=== PATIENT | female | born 1950 | race Caucasian/White ===

== ENCOUNTER → 2017-12-25 14:50 | Outpatient (CLI) | payer OTHER, SELFPAY ==
[2017-12-25 15:36] LABS: Absolute Lymphocyte Count 2.46 X10^3/ul (0.83-4.51); Absolute Neutrophil Count 3.5 X10^3/uL (2.0-7.7); Basophil# 0.02 X10^3/uL; Basophil% 0.3 % (0-1); Eosinophil# 0.17 X10^3/uL; Eosinophils% 2.5 % (0-5); Hematocrit 39.5 % (37-47); Hemoglobin 12.8 g/dl (12.0-15.0); Lymphocyte # 2.46 X10^3/ul (4.0); Lymphocyte % 36.7 % (19-41); Mean Corp Hgb Conc 32.4 g/gl (32-36); Mean Corpuscular Volume 92.7 fL (81-99); Mean Platelet Vol. 9.5 fl (6.2-12.0); Monocyte# 0.51 X10^3/uL; Monocyte% 7.6 % (0-10); Neutrophil # 3.54 X10^3/uL (2.7-7.7); Neutrophil % 52.8 % (47-70); Platelet Count 198 K/mm3 (150-450); RBC Distribution Width CV 13.1 % (11.6-14.6); RBC Distribution Width SD 44.1 fl (35.1-43.9); Red Blood Count 4.26 M/mm3 (4.2-5.4); White Blood Count 6.7 K/mm3 (4.4-11.0)
[2017-12-25 16:06] LABS: Anion Gap 7 (5-15); BUN 32 mg/dL (7-18); BUN/Creat Ratio 33.4 RATIO (10-20); Calcium,Total 8.9 mg/dL (8.5-10.1); Chloride 105 mmol/L (98-107); Creatinine, Serum 0.96 mg/dL (0.55-1.02); EST Glomerular Filtration Rate 62 mL/min (>60); Est Glom Filt Rate - Afr Amer 75 mL/min (>60); Free T3 2.9 pg/mL (2.18-3.98); Glucose 104 mg/dL (74-106); Potassium 4.2 mmol/L (3.5-5.1); Sodium Level 139 mmol/L (136-145); T4 Free Direct 1.04 ng/dL (0.76-1.46); Thyroid Stim Hormone (TSH) 2.28 uIU/mL (0.358-3.74)
[2017-12-25 16:11] LABS: POSITIVE COUNT NO; POSITIVE DIFFERENTIAL NO; POSITIVE MORPHOLOGY NO
== END ==
PROVIDERS: Family Provider Family Medicine; PCP Family Medicine; Visit Provider Internal Medicine Endocrinology, Diabetes & Metabolism
DX: E03.9 Hypothyroidism, unspecified (principal); E55.9 Vitamin D deficiency, unspecified
CPT/HCPCS: 36415; 80048; 82306; 84439; 84443; 84481; 85025

== ENCOUNTER → 2018-01-04 14:47 | Outpatient (CLI) | payer OTHER, SELFPAY ==
--- NOTE | 2018-01-04 14:48 | ECHOD_ITS ---
Reason For Study: DYSPNEA/SOB Procedure This was a 2D Doppler, Color Flow transthoracic echocardiogram. Exam performed in department. Left Ventricle Normal LV size. The estimated ejection fraction is 55 %. Left ventricular systolic function is normal. No evidence for diastolic dysfunction. No regional wall motion abnormalities noted. Right Ventricle Normal RV size. ICD or pacer leads identified within the right ventricle. Normal systolic function. Atria Normal left atrium. Normal right atrium. Bubble contrast study negative for right to left interatrial shunt. Mitral Valve Normal mitral valve. Mild (1+) eccentric mitral valve insufficiency. Tricuspid Valve Normal tricuspid valve. Mild tricuspid valve insufficiency. Pulmonary artery systolic pressure is 23 mmHg. Aortic Valve Normal aortic valve. Pulmonic Valve Normal pulmonic valve. Great Vessels Normal aortic root. The pulmonary artery is normal size. Normal inferior vena cava. Pericardium/Pleural No pericardial effusion. Medication 22 gauge I.V. with prn adaptor inserted into right arm. Performed a rapid injection of agitated mix of 9 cc saline and 1cc air to assess for atrial septal defect. MMode/2D Measurements & Calculations LVIDd: 3.7 cm IVSd: 0.94 cm Ao root diam: 2.9 cm LVIDs: 2.5 cm LVPWd: 0.98 cm RVDd: 2.9 cm FS: 30.7 % LAV(MOD-bp): 34.3 ml EDV(MOD-sp4): 83.4 ml SV(MOD-sp4): 48.8 ml LAV(MOD-bp) Indexed: 20.2 ml/m2 ESV(MOD-sp4): 34.6 ml LAV(MOD-sp2): 33.4 ml EF(MOD-sp4): 58.5 % LAV(MOD-sp4): 35.4 ml LA A4 area: 14.6 cm2 RA A4 area: 11.1 cm2 Time Measurements MV dec time: 0.22 sec Doppler Measurements & Calculations MV E max isiah: 102.0 cm/sec Lat Peak E' Isiah: 7.8 cm/sec Med Peak E' Isiah: 7.2 cm/sec MV A max isiah: 113.3 cm/sec E/E' lat: 13.0 E/E' med: 14.1 MV E/A: 0.90 Ao V2 max: 123.4 cm/sec LV V1 max: 88.6 cm/sec PA V2 max: 72.1 cm/sec Ao max P.1 mmHg LV V1 max P.1 mmHg TR max isiah: 229.9 cm/sec TR max P.2 mmHg Interpretation Summary Normal LV size. The estimated ejection fraction is 55 %. Left ventricular systolic function is normal. No evidence for diastolic dysfunction. Mild tricuspid valve insufficiency. Pulmonary artery systolic pressure is 23 mmHg. Compared to the previous the LV is improved Ordering Physician: Jace Subramanian Referring Physician: Jace Subramanian Performed By: Dulce Gagnon RDCS
== END ==
PROVIDERS: Family Provider Family Medicine; PCP Family Medicine; Visit Provider Internal Medicine Cardiovascular Disease
DX: I42.8 Other cardiomyopathies (principal); Z95.810 Presence of automatic (implantable) cardiac defibrillator
CPT/HCPCS: 93306; A4216

== ENCOUNTER → 2018-03-14 09:18 | Outpatient (CLI) | payer OTHER, SELFPAY ==
[2018-03-14 11:36] LABS: Hemoglobin A1c 5.6 % (4.2-6.3)
[2018-03-14 11:39] LABS: Thyroid Stim Hormone (TSH) 2.64 uIU/mL (0.358-3.74)
== END ==
PROVIDERS: Family Provider Family Medicine; PCP Family Medicine; Visit Provider Internal Medicine Endocrinology, Diabetes & Metabolism
DX: R73.9 Hyperglycemia, unspecified (principal); M81.0 Age-related osteoporosis without current pathological fracture; E03.9 Hypothyroidism, unspecified
CPT/HCPCS: 36415; 83036; 84443

== ENCOUNTER → 2018-05-20 13:01 | Outpatient (CLI) | payer OTHER, SELFPAY | PROVIDERS: Family Provider Family Medicine; PCP Family Medicine; Visit Provider Anesthesiology Pain Medicine | DX: M96.1 Postlaminectomy syndrome, not elsewhere classified (principal) | CPT/HCPCS: 72072 ==

== ENCOUNTER → 2018-08-13 12:27 | Outpatient (CLI) | payer OTHER, SELFPAY ==
--- NOTE | 2018-08-13 12:43 | BI_ITS ---
MAMMOGRAPHY - BILATERAL SCREENING REASON FOR EXAM: Female, 67 years old. Routine annual screening examination. PERTINENT HISTORY: Non-contributory. TECHNIQUE: Digital bilateral breast jannet (3D mammographic acquisition) in the CC and MLO projections. 2-D mediolateral oblique (MLO) and craniocaudad (CC) views of both breasts were obtained. CAD: Full Field Digital Mammography with Computer Added Detection was performed. COMPARISON: Comparison is made with prior study dated June 08, 2017 and March 13, 2016. FINDINGS: Breast Composition: The breasts are heterogeneously dense, which may obscure small masses. There are no dominant masses or suspicious calcifications. A pacemaker battery pack is once again seen in the left axillary region. There is asymmetry of breast tissue with more breast tissue is seen in the right breast as compared to the left side. This is a normal variant. This is unchanged. No other significant abnormalities are identified. There has been no significant change since the prior study. BI/SCREENING MAMM (CAD), BILAT IMPRESSION: Stable bilateral screening mammogram. Yearly follow-up mammogram recommended. (A) ASSESSMENT CATEGORY: BIRADS Category 2: Benign. A letter regarding these results will be sent to the patient by the facility within 30 days. Approximately 10% of breast cancers are not detected by mammography. A normal mammogram should not delay biopsy of a clinically suspicious abnormality. [id number] Electronically Signed: Ganesh Dolan MD at 15:11 EST Tel [phone], Service support ,
== END ==
PROVIDERS: Family Provider Family Medicine; PCP Family Medicine; Referring Provider Family Medicine; Visit Provider Family Medicine
DX: Z12.31 Encounter for screening mammogram for malignant neoplasm of breast (principal)
CPT/HCPCS: 77063; 77067

== ENCOUNTER → 2018-08-14 16:16 | Outpatient (CLI) | payer OTHER, SELFPAY ==
[2018-08-14 18:44] LABS: Absolute Lymphocyte Count 2.24 X10^3/ul (0.83-4.51); Absolute Neutrophil Count 4.3 X10^3/uL (2.0-7.7); Basophil# 0.02 X10^3/uL; Basophil% 0.3 % (0-1); Eosinophil# 0.19 X10^3/uL; Eosinophils% 2.6 % (0-5); Hematocrit 40.7 % (37-47); Hemoglobin 13.2 g/dl (12.0-15.0); Lymphocyte # 2.24 X10^3/ul (4.0); Lymphocyte % 30.8 % (19-41); Mean Corp Hgb Conc 32.4 g/gl (32-36); Mean Corpuscular Hgb 30.9 pg (27.0-32.0); Mean Corpuscular Volume 95.3 fL (81-99); Mean Platelet Vol. 10.1 fl (6.2-12.0); Monocyte# 0.53 X10^3/uL; Monocyte% 7.3 % (0-10); Neutrophil # 4.28 X10^3/uL (2.7-7.7); Neutrophil % 58.9 % (47-70); Platelet Count 248 K/mm3 (150-450); RBC Distribution Width CV 13.5 % (11.6-14.6); RBC Distribution Width SD 46.8 fl (35.1-43.9); Red Blood Count 4.27 M/mm3 (4.2-5.4); White Blood Count 7.3 K/mm3 (4.4-11.0)
[2018-08-14 18:45] LABS: Vitamin D,25 Hydroxy 108.4 ng/mL (29.95-100.01)
[2018-08-14 18:48] LABS: AST(SGOT) 23 U/L (15-37); Alanine Aminotransfer ALT/SGPT 29 U/L (13-56); Albumin, Serum 3.9 g/dL (3.2-5.0); Alkaline Phosphatase 42 U/L (45-117); Anion Gap 11 (5-15); BUN 27 mg/dL (7-18); BUN/Creat Ratio 25.2 RATIO (10-20); Calcium,Total 9.1 mg/dL (8.5-10.1); Chloride 104 mmol/L (98-107); Cholesterol 209 mg/dL (200); Creatinine, Serum 1.07 mg/dL (0.55-1.02); EST Glomerular Filtration Rate 54 mL/min (>60); Est Glom Filt Rate - Afr Amer 66 mL/min (>60); Free T3 2.6 pg/mL (2.18-3.98); Globulin 3.9 g/dL (2.2-4.2); Glucose 90 mg/dL (74-106); High Density Lipoprotein 62 mg/dL; Potassium 4.3 mmol/L (3.5-5.1); Protein, Total 7.8 g/dL (6.4-8.2); Sodium Level 140 mmol/L (136-145); Thyroid Stim Hormone (TSH) 2.05 uIU/mL (0.358-3.74); Triglycerides 180 mg/dL; Very Low Density Lipoprotein 36 mg/dL (5-40)
[2018-08-14 18:58] LABS: POSITIVE COUNT NO; POSITIVE DIFFERENTIAL NO; POSITIVE MORPHOLOGY NO
== END ==
PROVIDERS: Family Provider Family Medicine; PCP Family Medicine; Visit Provider Family Medicine
DX: Z00.00 Encounter for general adult medical examination without abnormal findings (principal); N39.3 Stress incontinence (female) (male); R94.6 Abnormal results of thyroid function studies
CPT/HCPCS: 36415; 80053; 80061; 82306; 82570; 84439; 84443; 84481; 85025

== ENCOUNTER → 2018-09-10 13:21 | Outpatient (CLI) | payer OTHER, SELFPAY ==
[2018-09-10 14:59] LABS: Vitamin D,25 Hydroxy 86.5 ng/mL (29.95-100.01)
[2018-09-12 20:06] LABS: Creatinine, Urine 59.9 mg/dL (Not Estab.); N-Telopeptide, Urine 140 nmol BCE (Not Estab.)
[2018-09-13 12:50] LABS: NTX:Creatinine Ratio, Urine 26 (0-89)
--- OUTSIDE RECORDS SUMMARY | 2018-12-13 00:20 | XMS RPT_ITS ---
:1950 Author Organization OHIP Support Name Relationship Address Phone ARCENIO LEE Unavailable [address] + [place] [address] R Unavailable Unavailable Unavailable CHASE MAURICENA Unavailable Unavailable + [place] [address] ARCEINO LEE Unavailable [address] + [place] [address] R Unavailable Unavailable Unavailable KAYLENE, JOSHUA Unavailable Unavailable + [place] [address] R Unavailable Unavailable Unavailable KAYLENE, JOSHUA Unavailable Unavailable + [place] [address] JOSE MIGUEL ARCENIO Unavailable [address] + [place] [address] R Unavailable Unavailable Unavailable KAYLENE, JOSHUA Unavailable Unavailable + ARCENIO LEE Unavailable [address] + [place] [address] R Unavailable Unavailable Unavailable KAYLENE, JOSHUA Unavailable . + [place] [address] ARCENIO LEE Unavailable [address] + [place] [address] R Unavailable Unavailable Unavailable KAYLENE, JOSHUA Unavailable . + [place] [address] JOSE MIGUEL ARCENIO Unavailable [address] + [place] [address] R Unavailable Unavailable Unavailable KAYLENE, JOSHUA Unavailable Unavailable + R Unavailable Unavailable Unavailable R Unavailable Unavailable Unavailable KAYLENECHASENA Unavailable Unavailable + R Unavailable Unavailable Unavailable KAYLENECHASENA Unavailable Unavailable + R Unavailable Unavailable Unavailable KAYLENECHASENA Unavailable Unavailable + [place] [address] R Unavailable Unavailable Unavailable R Unavailable Unavailable Unavailable R Unavailable Unavailable Unavailable R Unavailable Unavailable Unavailable R Unavailable Unavailable Unavailable R Unavailable Unavailable Unavailable R Unavailable Unavailable Unavailable R Unavailable Unavailable Unavailable ARCENIO LEE Unavailable [address] + [place] [address] R Unavailable Unavailable Unavailable JOSE MIGUEL ARCENIO Unavailable [address] + [place] [address] R Unavailable Unavailable Unavailable Care Team Providers Name Role Phone Sandip Darline N. Attending Unavailable Raghunathan, Darline N. Referring Unavailable Palma, Michele Primary Care Unavailable Alana Roberts Attending Unavailable Palma, Michele Referring Unavailable Raghunatkandis, Darline N. Attending Unavailable Raghunathan, Darline N. Referring Unavailable Palma, Michele Primary Care Unavailable Denise Caro Attending Unavailable Palma, Michele Referring Unavailable Denise Caro Attending Unavailable Denise Caro Referring Unavailable Palma, Michele Primary Care Unavailable MarilynnSae dhaliwall Attending Unavailable Denise Caro Referring Unavailable Alana Roberts Attending Unavailable Palma, Michele Referring Unavailable Palma, Mcihele Primary Care Unavailable Alana Roberts Attending Unavailable Palma, Michele Referring Unavailable Marilynn, [place] Attending Unavailable Palma, Michele Referring Unavailable Palma, Michele Primary Care Unavailable Raghunathan, Darline N. Attending Unavailable Raghunathan, Darline N. Referring Unavailable Palma, Michele Primary Care Unavailable Marilynn, Jace Attending Unavailable Marilynn, Jace Referring Unavailable Palma, Michele Primary Care Unavailable Marilynn, Jace Attending Unavailable Alana Roberts Attending Unavailable Palma, Michele Referring Unavailable Raghunathan, Darline N. Attending Unavailable Raghunathan, Darline N. Referring Unavailable Palma, Michele Primary Care Unavailable Alana Roberts Attending Unavailable Palma, Michele Referring Unavailable Palma, Michele Primary Care Unavailable Alana Roberts Attending Unavailable Palma, Michele Referring Unavailable Missy York Attending Unavailable Basali Ayman Referring Unavailable Palma, Michele Primary Care Unavailable Alana Roberts Attending Unavailable Palma, Michele Referring Unavailable Palma, Michele Attending Unavailable Palma, Michele Referring Unavailable Palma, Michele Primary Care Unavailable Palma, Michele Attending Unavailable Palma, Michele Primary Care Unavailable PROBLEMS PROBLEMS DATE TYPE CONDITION / CODE ATTENDING STATUS SOURCE 10/15/2018 Unknown R07.9 - Chest pain, Marilynn, [place] Active [place] unspecified / Community R07.9(ICD-10) Hospital Repository 09/16/2018 Unknown Z95.810 - Presence of Caro, Active [place] automatic Denise [facility] (implantable) cardiac Hospital defibrillator / Repository Z95.810(ICD-10) 09/10/2018 Unknown M81.0 - Age-related Raghunathan, Active [place] osteoporosis without Darline N. Community current pathological Hospital fracture / Repository M81.0(ICD-10) 05/20/2018 Unknown M96.1 - Basali, Ayman Active [place] Postlaminectomy Community syndrome, not Hospital elsewhere classified / Repository M96.1(ICD-10) 03/14/2018 Unknown R73.9 - Hyperglycemia, Raghunathan, Active [place] unspecified / Darline N. Community R73.9(ICD-10) Hospital Repository 03/14/2018 Unknown E03.9 - Raghunathan, Active [place] Hypothyroidism, Darline N. Community unspecified / Hospital E03.9(ICD-10) Repository 01/22/2018 Unknown R06.02 - Shortness of Marilynn, [place]ace Active [place] breath / Community R06.02(ICD-10) Hospital Repository 12/25/2017 Unknown I42.8 - Other Marilynn, [place]ace Active [place] cardiomyopathies / Community I42.8(ICD-10) Hospital Repository PROCEDURES PROCEDURES No Procedure Records FoundRESULTS RESULTS CARDIOLOGY VISIT Observed: 10/14/2018 Status: F Source: [place] REPORT 2:11 PM [facility] REPOSITORY [facility] [address] [place] [address] OFFICE VISIT Date of Service: 09/16/18 MR#: [id number] Acct: [id number] Name: REJI LEE Rep #: [id number] : 1950 Provider: Denise Caro Age/Sex: 67/F Location: [facility] Status: Signed HPI HPI Chief Complaint: Follow-up visit. Details: REJI LEE, is a 67 F who presents to the office today for for an urgent appointment for chest discomfort and near syncope. Patient does have a history of nonischemic cardiomyopathy with a left bundle branch block. She did undergo a [employer] device implant in January 2017. Pt sts that she had 2 episodes this past month where she felt weak she felt like she could not move and had a band around her chest. These episodes lasted approx 2 minutes. She does keep herself active and does not feel that she has any problems. She does not have any dizziness. She palpitations she she is aware of. She does not have any worsening SOB. She is now on an antx for a sinus infection. Intake Vital Signs09/16/18 Height 5 ft 3 in 09/16/18 Weight: 136 lb 09/16/18 Body Mass Index (BMI) 24.0 09/16/18 Blood Pressure 118/64 09/16/18 Blood Pressure Location Lt brachial Intake Visit Reasons: Chest Pain Near Syncope Virtual Office Assistant Required: No Accompanied by: none Is patient in pain?: No Allergies clindamycin Allergy (Severe, Verified 12/25/17 09:46) Hives indomethacin [From Indocin] Allergy (Severe, Verified 12/25/17 09:46) hives,swelling amoxicillin [From Augmentin] Adverse Reaction (Severe, Verified 12/25/17 09:46) Nausea/Vom/Diarrhea, severe GI upset carvedilol [Coreg] Adverse Reaction (Severe, Verified 12/25/17 09:46) Shortness of breath, myalgias clavulanic acid [From Augmentin] Adverse Reaction (Severe, Verified 12/25/17 09:46) Nausea/Vom/Diarrhea/severe GI upset diclofenac Adverse Reaction (Severe, Verified 12/25/17 09:46) Severe GI upset erythromycin base Adverse Reaction (Severe, Verified 12/25/17 09:46) Nausea/Vom/Diarrhea, severe GI upset fentanyl Adverse Reaction (Severe, Verified 12/25/17 09:46) Locked jaw, confusion meloxicam [From Mobic] Adverse Reaction (Severe, Verified 12/25/17 09:46) Hallucinations Sulfa (Sulfonamide Antibiotics) Adverse Reaction (Severe, Verified 12/25/17 09:46) Severe Itching sulfamethoxazole [From Bactrim] Adverse Reaction (Severe, Verified 12/25/17 09:46) Severe Itching trimethoprim [From Bactrim] Adverse Reaction (Severe, Verified 12/25/17 09:46) severe itching venlafaxine [From Effexor] Adverse Reaction (Severe, Verified 12/25/17 09:46) Racing pulse zolpidem [From Ambien] Adverse Reaction (Severe, Verified 12/25/17 09:46) Agitation baclofen Adverse Reaction (Intermediate, Verified 12/25/17 09:46) crawling skin cefdinir [From Omnicef] Adverse Reaction (Intermediate, Verified 12/25/17 09:46) Itching duloxetine [From Cymbalta] Adverse Reaction (Intermediate, Verified 12/25/17 09:46) Nausea lisinopril Adverse Reaction (Intermediate, Verified 12/25/17 09:46) cough, nausea, abdominal pain lovastatin Adverse Reaction (Intermediate, Verified 12/25/17 09:46) Myalgias pregabalin [From Lyrica] Adverse Reaction (Intermediate, Verified 12/25/17 09:46) Nausea, crawling skin tizanidine Adverse Reaction (Intermediate, Verified 12/25/17 09:46) crawling skin trazodone [From Desyrel] Adverse Reaction (Verified 12/25/17 09:46) Hallucination Medications Levothyroxine [Synthroid] 25 mcg PO DAILY 05/27/16 [History Confirmed 09/16/18] Pravastatin [Pravachol] 20 mg PO DAILY 05/27/16 [History Confirmed 09/16/18] Teriparatide [Forteo] 20 mcg SQ DAILY 05/27/16 [History Confirmed 09/16/18] Ascorbic Acid/Ascorbate Fernando [Fruit C-100 Tablet Chewable] 100 mg PO DAILY 06/29/16 [History Confirmed 09/16/18] Calcium Citrate 250 mg PO DAILY 06/29/16 [History Confirmed 09/16/18] Ergocalciferol [Vitamin D] 50,000 unit PO Q7D 06/29/16 [History Confirmed 09/16/18] Famotidine [Pepcid] 20 mg PO DAILY PRN 06/29/16 [History Confirmed 09/16/18] Fexofenadine HCl 180 mg PO DAILY 06/29/16 [History Confirmed 09/16/18] Folic Acid/B Complex C No.17 [Virt-Neda Plus Tablet] 5 mg PO DAILY 06/29/16 [History Confirmed 09/16/18] Magnesium Oxide [Mag-Ox 400] 400 mg PO BID 06/29/16 [History Confirmed 09/16/18] Nitrofurantoin Macrocrystals [Macrobid] 100 mg PO DAILY 06/29/16 [History Confirmed 09/16/18] Range-3 Fatty Acids/Fish Oil [Range 3 Fish Oil Softgel] 1 ea PO DAILY 06/29/16 [History Confirmed 09/16/18] Ubidecarenone [Coenzyme Q10] 10 mg PO DAILY 06/29/16 [History Confirmed 09/16/18] fluoxetine 20 mg capsule 20 mg PO QDAY 12/21/17 [History Confirmed 09/16/18] melatonin 1 mg tablet 1 mg PO .COMPLEX 12/21/17 [History Confirmed 09/16/18] multivitamin tablet 1 tab PO QDAY 12/21/17 [History Confirmed 09/16/18] losartan 25 mg tablet 25 mg PO QDAY #90 tab 12/25/17 [Rx Confirmed 09/16/18] metoprolol tartrate 25 mg tablet 25 mg PO BID #180 tab 12/25/17 [Rx Confirmed 09/16/18] PFSH Medical History GERD (gastroesophageal reflux disease) (Chronic) Hypertension (Chronic) Hyperlipidemia (Chronic) Hypothyroidism (Chronic) Left bundle-branch block (Chronic) Nonischemic cardiomyopathy (Chronic) Surgical History History of left heart catheterization (Chronic) Biventricular implantable cardioverter-defibrillator (ICD) in situ (Chronic) Family History Other CAD (coronary artery disease) CVA (cerebral vascular accident) Myocardial infarction Social History Smoking Status: Never smoker ROS Const Const: Positive for weakness; negative for fatigue, fever(s) or headache(s) Eyes Eyes: Negative for blind spots, loss of peripheral vision or transient loss of vision ENT ENT: Negative for headache(s), dizziness, tinnitus or Nosebleed/epistaxis Cardio Chest Pain: Yes Palpitations: No Edema: None Muscle aches with walking: None Resp Respiratory: Negative for SOB with activity, SOB at rest, SOB orthopnea\SOB lying down or Cough GI GI: Negative nausea, vomiting, heartburn or vomiting blood/hematemesis : Negative for hematuria Musc Musc: Negative for muscle aches/ myalgia Neuro Neuro: Positive for weakness; negative for headache(s), dizziness, near syncope, syncope, lightheadedness or orthostatic symptoms Jorge Hematologic/Lymphatic: Negative for easy bleeding Endo Endo: Negative for fatigue Cardiology Exam Const Appearance: cooperative, healthy appearing, well developed, well groomed and no acute distress Nutritional Appearance: well nourished and average body habitus Orientation: alert, awake and oriented x3 Head Head: normal to inspection, normocephalic and atraumatic Ears: hearing grossly normal bilaterally and external ears normal Nose: external nose normal, nasal mucous membranes and turbinates normal, nares normal, septum normal, no nasal discharge Face and Sinus: face symmetric Mouth: oral mucosae normal, tongue normal, oropharynx normal and moist mucous membranes Teeth and gingiva: dentition normal Throat: posterior oropharynx normal, tonsils normal and uvula midline Eyes General: appearance normal, both eyes and all related structures Eyelids: eyelids normal Conjunctivae: conjunctivae normal Pupils: PERRL, normal by confrontation and accommodation normal EOM: EOM intact bilaterally Neck Neck: normal visual inspection, trachea midline and no JVD JVD: +5 Carotids: normal carotid upstroke and bounding pulses Chest Chest inspection: normal inspection of the chest, symmetric chest movement and normal respiratory effort Auscultation: Bilateral: Clear to Auscultation Cardio Palpation: normal PMI Rate: regular rate Rhythm: regular rhythm Heart sounds: S1 normal, S2 normal and normal, physiologic split S2; negative rub, gallop or murmur GI GI: normal to inspection, soft, no hepatosplenomegaly and bowel sounds present Neuro General: alert, awake, oriented x3, no focal sensory deficit, gait normal and moves all extremities Skin Skin: no rashes or lesions noted Extremities Pulses: Normal: Right Femoral Pulse, Left Femoral Pulse, Right Dorsalis Pedis Pulse, Left Dorsalis Pedis Pulse, Right Posterior Tibial Pulse, Left Posterior Tibial Pulse, Right Radial Pulse, Left Radial Pulse Lower Extremity Edema: None: Bilateral Musculoskel Musculoskeletal: No joint tenderness Psych Psychological: normal affect Assessment AND Plan 1. Other chest pain R07.89; R07.8 Plan Patient has had 2 episodes of chest discomfort that is concerning for angina. Will obtain a pharmacologic nuclear stress test to further evaluate. Pharmacologic stress test was chosen due to her ICD. 2. Nonischemic cardiomyopathy I42.8 Plan Patient does not have any symptoms of congestive heart failure. Echocardiogram has been reviewed. We will continue to monitor by history, exam and echocardiograms as deemed appropriate. Patient will continue with aggressive medical management. 3. Biventricular implantable cardioverter-defibrillator (ICD) in situ Z95.810 02/14/17 @ [facility] per [address] Herbert Plan ICD is functioning appropriately. Pt has not had any discharges from their device, they will continue with regular scheduled ICD interrogations. Orders Orders: 4. Essential hypertension I10 Plan Controlled on current medications, will not make any adjustments at this time. 5. Pure hypercholesterolemia E78.00; E78.0 Plan Recent lipid profile has been reviewed. Patient will continue with his current dose of low intensity statin. Plan Detail Other Orders Orders: Additional Comments The above patient was discussed with Dr. Subramanian, he agrees with plan of care. Thank you for allowing us to participate in patient's plan of care, if you have any questions please do not hesitate to call. This note was generated using a voice recognition system and there may be incorrect words, spelling or punctuation errors that were not noted when reviewing the office note prior to saving. Follow Up 09/16/18 (keep as is) Coding Level of Care Code Off vis,est,level 4 Diagnoses Other chest pain R07.89; R07.8 Chest pain type: other chest pain Nonischemic cardiomyopathy I42.8 Biventricular implantable cardioverter-defibrillator (ICD) in situ Z95.810 Essential hypertension I10 Hypertension type: essential hypertension Pure hypercholesterolemia E78.00; E78.0 Hyperlipidemia type: pure hypercholesterolemia Coding Level of Care Code Off vis,est,level 4 Diagnoses Other chest pain R07.89; R07.8 Chest pain type: other chest pain Nonischemic cardiomyopathy I42.8 Biventricular implantable cardioverter-defibrillator (ICD) in situ Z95.810 Essential hypertension I10 Hypertension type: essential hypertension Pure hypercholesterolemia E78.00; E78.0 Hyperlipidemia type: pure hypercholesterolemia 09/16/18 1002 <Electronically signed by Denise HELLER> Date Denise HELLER Cosigner Signature: Date (if applicable) CC: Michele Palma MD STRESS REPORT Observed: 09/30/2018 Status: F Source: [place] 10:25 AM [facility] REPOSITORY [facility] Cardiovascular Services [address] [address] MR#: [id number] Acct: [id number] Name: REJI LEE Rep #: [id number] : 1950 67 From: [place] Subramanian MD Primary Care: Michele Palma MD Status: REG CLI Ordering Dr: Sex: F C Stress Test Report Pharmacologic myocardial perfusion stress test. 67-year-old lady with a history of chest pain. Medications: Synthroid, Pravachol, losartan, metoprolol. Resting EKG demonstrates normal sinus rhythm with a rate of 70 bpm and ventricular pacing of 70 bpm resting blood pressure 122/80 mmHg. 0.4 mg of regadenoson was infused per usual protocol followed by rapid intravenous saline flush injection continuous EKG monitoring was performed. The patient maintained sinus rhythm throughout the recording. The maximum heart rate attained was 111 bpm which was 72% of maximum predicted heart rate the maximum workload was 1 metabolic equivalent. At rest there were no ST or T wave changes noted suggest abnormal flow reserve at peak infusion no ST or T wave changes were noted to suggest abnormal flow reserve. The resting blood pressure 122/80 with a final blood pressure 118/76. Myocardial perfusion protocol. 11.1 mCi of technetium 99m sestamibi was injected at rest. 0.4 mg of regadenoson was infused per usual protocol at peak infusion 32.8 mCi of technetium 99m sestamibi was injected stress images were obtained stress and rest images were reconstructed and compared in the short axis vertical long and horizontal long axis. Gated images were also obtained Perfusion SPECT analysis: Review of the stress images demonstrate normal uptake of tracer noted in all areas of the myocardium. The resting images demonstrate normal uptake of tracer noted in all areas of the myocardium. No areas of reversibility are noted suggest ischemia. Conclusion: Normal pharmacologic myocardial perfusion stress test. Preserved ejection fraction. 09/30/18 1025 <Electronically signed by [place] Subramanian MD> Date Jace Subramanian MD CC: Michele Palma MD; Denise Caro Date Dictated: 09/30/181022 Date Transcribed: 09/30/181022 Steam And Power Superintendent: [place] Signed DEXA BONE DENSITY Observed: 09/18/2018 Status: F Source: [place] STUDY 10:07 AM [facility] REPOSITORY [facility] Imaging Services [address] [place] [address] Dexa Bone Density Study MR#: [id number] Acct: [id number] Name: REJI LEE Rep #: [id number] : 1950 F 67 From: Ganesh Dolan MD PCP: Michele Palma MD Status: REG CLI Study: Dexa Bone Density Study Date of Exam: 09/18/18 Exam# [id number] Ordering Dr: Darline Oropeza MD STUDY: DUAL ENERGY X-RAY ABSORPTIOMETRY / DXA REASON FOR EXAM: Female, 67 years old. The patient is postmenopausal. Loss of height. History of prior kyphoplasty. TECHNIQUE: Bone Mineral Density (BMD) measurements of lumbar spine and bilateral hips were obtained. COMPARISON: Comparison is made with prior study dated July 26, 2016. FINDINGS: Lumbar Spine (L1-L4): g/cm2 (0.999) / T-score (-1.7) / Z-score (0.1) Findings are suggestive of osteopenia with a moderate fracture risk. Left Femur Total: g/cm2 (0.905) / T-score (-0.8) / Z- score (0.5) Left Femoral Neck: g/cm2 (0.857) / T-score (-1.3) / Z- score (0.2) Right Femur Total: g/cm2 (0.871) / T-score (-1.1) / Z- score (0.2) Right Femoral Neck: g/cm2 (0.838) / T-score (-1.4) / Z-score (0.1) The T-Scores on the most recent prior examination were: Lumbar Spine (L1-L4): There has been improvement of bone density since the previous examination. Left Femur Total: which represents a worsening of 1.1%. Right Femur Total: which represents a worsening of 1.0%. BD/Dexa Bone Density Study IMPRESSION: The patient is considered osteopenic as outlined below according to World Gagandeep Organization (WHO) criteria with a moderate fracture risk. There has been worsening of bone density since the previous examination. Reference Information: The T-score is the number of standard deviations above or below the standard which is normal for young adults at their peak bone mineral density. The World Health Organization (WHO) interprets the T-scores as follows: Above -1 Normal bone density Between -1 and -2.5 Osteopenia Equal to / or below -2.5 Osteoporosis As a practical clinical guideline, osteopenia may be graded as follows: Mild -1 through -1.5 Moderate -1.6 through -2.0 Severe -2.1 through -2.4 The Z-score is the number of standard deviations above or below age-matched controls. A Z-score of less than -1.5 would be considered abnormal. References: 1. NIH Osteoporosis and Related Bone Diseases http://www.osteo.org 2. International Society for Clinical Densitometry http://www.iscd.org 3. National Osteoporosis Foundation http://www.nof.org Electronically Signed: Ganesh Dolan MD at 7:45 EST Tel [phone], Service support , CC: Darline Oropeza MD; Michele Palma MD Steam And Power Superintendent: Signed 12 LEAD EKG PERFORMED Observed: 09/16/2018 Status: F Source: [place] BY [facility] 9:31 AM [facility] REPOSITORY [place] [address] [place] [address] 12 Lead EKG performed by [facility] 09/16/18928 MR#: [id number] Acct: [id number] Name: ERJI LEE Rep #: [id number] : 1950 67 From: Denise HELLER Attending Dr: Denise Caro Status: DEP AMB Ordering Dr: Denise Caro Date: 09/16/18 Location: [facility] [place] Sex: F C Admitted: BMS/12 Lead EKG performed by [facility] ECG Report Interpretation Electronic ventricular pacemaker Pacemaker ECG, No further analysis INSUFFICIENT DATAElectronically signed on 10/15/2018 at 13:15 by [place] Subramanian Software Version [id number] 10/15/18 1319 Date Denise HELLER CC: Michele Palma MD Date Dictated: 09/16/18928 Date Transcribed: 09/16/18928 Steam And Power Superintendent: JEREMY Signed PACEMAKER CHECK Observed: 09/12/2018 Status: F Source: [place] 7:27 AM [facility] REPOSITORY [facility] [address] [place] [address] Pacemaker Check Date of Service: 09/11/18 1353 MR#: [id number] Acct: [id number] Name: REJI LEE Rep #: [id number] : 1950 From: Alana Roberts Age/Sex: 67/F Location: [facility] [place] Status: Signed Billing Codes ICD Device Billing: ICD Dev Interrogate (Rmt) 09/11/18 135 <Electronically signed by Alana Roberts > Date Alana Roberts 09/12/18 0727<Electronically signed by Jace Subramanian MD> Cosigner Signature: Date (if applicable) Jace Subramanian MD CC: CREATININE, URINE Collected: 09/10/2018 Status: F Source: [place] (RANDOM) 1:25 PM [facility] REPOSITORY TYPE CODE TESTS RESULT OUT OF RANGE REFERENCE UNITS LAB L501.1200 NO RANGE EST. mg/dL Normal UR CREAT 67.80 Performed By: #### L501.1200 #### [facility] [address] [place], [address] VITAMIN D,25 HYDROXY Collected: 09/10/2018 Status: F Source: [place] 1:25 PM [facility] REPOSITORY TYPE CODE TESTS RESULT OUT OF RANGE REFERENCE UNITS LAB L506.1000 29.95-100.01 ng/mL Normal Vitamin D 86.5 25-OH Result Comment: Vitamin D 25(OH) Status Range Deficiency <20 ng/mL (50nmol/L) Insuffciency 20 - 30 ng/mL (50 - 75 nmol/L) Sufficiency 30 - 100 ng/mL (75 - 250 nmol/L) Toxicity >100 ng/mL (>250 nmol/L) Performed By: #### L506.1000 #### [facility] [address] [place], [address] N-TELOPEPTIDE,UR X LINK Collected: 09/10/2018 Status: F Source: [place] 1:25 PM [facility] REPOSITORY TYPE CODE TESTS RESULT OUT OF RANGE REFERENCE UNITS LAB L3620.0200 Not Estab. nmol BCE Normal 140 N-TELOPEPTID E LAB L3620.0300 Not Estab. mg/dL Normal 59.9 CREATININE,U R LAB L3620.0400 0-89 Normal 26 N-TELO:CRE UR Result Comment: Result Units: nM BCE/mM Cr LAB L3620.0500 Normal INTERPRET.GUIDE Result Comment: The N-telopeptide and Creatinine are used to calculate the N-telo/Creat. Ratio which is referred to as NTx. Suggested guidelines for the clinical use of NTx are as follows: 1. Menopausal Women not on Hormone Replacement Therapy (HRT): Women with a baseline NTx value >38 are at significant risk for a decrease in bone mineral density (BMD) after 1 year compared to women on HRT. The probability of a decline in BMD increases with NTx value as follows: (1): Baseline NTx Probability of Decrease in BMD 18- 38 1.4 p=0.28 38- 51 2.5 p=0.03 51- 67 3.8 p=0.0006 67-188 17.3 p=0.0001 2. Menopausal Women Receiving Antiresorptive Therapy: The probability that treatment is effective after three months is increased when the measured NTx value is <or=38 nM BCE/mM ACCOUNTS SPECIALIST, or NTx has decreased >or=30% from baseline.[1] 3. Patients with Paget's Disease of Bone: The probability that treatment is effective after one month is increased when the measured NTx value is within the reference range, or NTx has decreased >or=30% from baseline.[2] 1. Mack CH, Harika NH, Matt GS, et al. Am J Med, 102:29-37,1997. (1):M757, 1996. 2. Bone H, Aliya J, et al. J Bone Min Res.11(1):M757,1995 Performed at: [facility] [address] [id number] Patient Information Coordinator: Wilfredo Perdue MD, Phone: [phone] Performed at: [facility] [address] [id number] Patient Information Coordinator: Balbir Price PhD, Phone: [phone] Performed By: #### L3620.0100 #### [facility] (refer to report for specific site) refer to report for address and phone number CREATININE, URINE Collected: 08/14/2018 Status: F Source: [place] (RANDOM) 4:17 PM [facility] REPOSITORY Order Comment: DR. OROPEZA ORDERED CMP, TSH, T4F,T3F, AND URINE ORDERED VITD,T4F,TSH,CMP,CBCD,LIPID TYPE CODE TESTS RESULT OUT OF RANGE REFERENCE UNITS LAB L501.1200 NO RANGE EST. mg/dL Normal UR CREAT 148.00 Performed By: #### L501.1200 #### [facility] [address] [place], [address] VITAMIN D,25 HYDROXY Collected: 08/14/2018 Status: F Source: [place] 4:17 PM [facility] REPOSITORY Order Comment: DR. OROPEZA ORDERED CMP, TSH, T4F,T3F, AND URINE ORDERED VITD,T4F,TSH,CMP,CBCD,LIPID TYPE CODE TESTS RESULT OUT OF REFERENCE UNITS RANGE LAB L506.1000 29.95-100.01 ng/mL High Vitamin D 108.4 25-OH Result Comment: Vitamin D 25(OH) Status Range Deficiency <20 ng/mL (50nmol/L) Insuffciency 20 - 30 ng/mL (50 - 75 nmol/L) Sufficiency 30 - 100 ng/mL (75 - 250 nmol/L) Toxicity >100 ng/mL (>250 nmol/L) Evidence suggests that patients undergoing fluorescein dye angiography can retain small amounts of fluorescein in the body for up to 48 to 72 hours post-treatment. In the cases of patients with renal insufficiency, retention could be much longer. Samples containing fluorescein can produce falsely elevated values when tested with the Advia Centaur Vitamin D assay. With fluorescein interference, observed Vitamin D values can be as high as >150 ng/mL (>375 nmol/L). Samples should be resubmitted post fluorescein clearance to ensure there is no interference with Vitamin D test results. Performed By: #### L506.1000, L500.4050, L500.4100, L501.9520, L506.0400, L100.0100 #### [facility] [address] [place], [address] COMPREHENSIVE METABOLIC Collected: 08/14/2018 Status: F Source: [facility] 4:17 PM [facility] REPOSITORY Order Comment: DR. OROPEZA ORDERED CMP, TSH, T4F,T3F, AND URINE ORDERED VITD,T4F,TSH,CMP,CBCD,LIPID TYPE CODE TESTS RESULT OUT OF RANGE REFERENCE UNITS LAB L501.0100 74-106 mg/dL Normal GLU 90 Result Comment: Please note revised GLUCOSE reference range effective 2017. LAB L501.1000 7-18 mg/dL High BUN 27 LAB L501.1100 0.55-1.02 mg/dL High CREAT,SERUM 1.07 Result Comment: The validity of the calculated GFR AND GFRAA in patients over 70 years has not been determined. Clinical correlation is essential. LAB L501.1110 >60 mL/min Low EST GFR 54 Result Comment: Non- GFR Calc LAB L501.1115 >60 mL/min Normal EST GFR - AA 66 Result Comment: GFR Calc LAB L501.1300 10-20 RATIO High BUN/CRE 25.2 LAB L501.1500 6.4-8.2 g/dL T Normal PROT 7.8 LAB L501.1800 3.2-5.0 g/dL Normal ALB 3.9 LAB L501.1950 2.2-4.2 g/dL Normal GLOB 3.9 LAB L501.2000 0.9-2.4 RATIO Normal A/G 1.0 LAB L501.2200 8.5-10.1 mg/dL CA Normal 9.1 LAB L501.4100 15-37 U/L Normal AST 23 LAB L501.4305 45-117 U/L Low ALK P 42 LAB L501.4405 13-56 U/L Normal ALT 29 LAB L501.4600 0.20-1.00 mg/dL T Normal BILI 0.20 LAB L501.5300 136-145 mmol/L NA Normal 140 LAB L501.5600 3.5-5.1 mmol/L K Normal 4.3 LAB L501.5900 98-107 mmol/L CL Normal 104 LAB L501.6100 21.0-32.0 mmol/L Normal CO2 25.0 LAB L501.6200 5-15 Normal GAP 11 Performed By: #### L506.1000, L500.4050, L500.4100, L501.9520, L506.0400, L100.0100 #### [facility] [address] [place], [address] LIPID PROFILE Collected: 08/14/2018 Status: F Source: [place] 4:17 PM [facility] REPOSITORY Order Comment: DR. OROPEZA ORDERED CMP, TSH, T4F,T3F, AND URINE ORDERED VITD,T4F,TSH,CMP,CBCD,LIPID TYPE CODE TESTS RESULT OUT OF RANGE REFERENCE UNITS LAB L501.4900 200 mg/dL High CHOL 209 Result Comment: <200 mg/dL Desirable 200-240 mg/dL Borderline >240 mg/dL High Risk LAB L501.5000 mg/dL Normal TRIG 180 Result Comment: The drugs N-Acetylcysteine and Metamizole may falsely depress this assay. Serum Triglycerides Reference Interval Normal <150 mg/dL Borderline high 150 - 199 mg/dL High 200 - 499 mg/dL Very High > or = 500 mg/dL LAB L501.6400 mg/dL Normal HDL 62 Result Comment: The drugs N-Acetylcysteine and Metamizole may falsely depress this assay. Reference Range HDL <40 mg/dL Low HDL Cholesterol HDL >or= 60 mg/dL High HDL Cholesterol LAB L501.6500 0-130 mg/dL Normal LDL 111 LAB L501.6600 5-40 mg/dL Normal VLDL 36 Performed By: #### L506.1000, L500.4050, L500.4100, L501.9520, L506.0400, L100.0100 #### [facility] [address] [facility] [place], [place], [id number] THYROID STIM HORMONE Collected: 08/14/2018 Status: F Source: [place] (TSH) 4:17 PM [facility] REPOSITORY Order Comment: DR. OROPEZA ORDERED CMP, TSH, T4F,T3F, AND URINE ORDERED VITD,T4F,TSH,CMP,CBCD,LIPID TYPE CODE TESTS RESULT OUT OF RANGE REFERENCE UNITS LAB L501.9520 0.358-3.74 uIU/mL Normal TSH 2.05 Performed By: #### L506.1000, L500.4050, L500.4100, L501.9520, L506.0400, L100.0100 #### [facility] [address] [place], [place], [id number] T4 FREE DIRECT Collected: 08/14/2018 Status: F Source: [place] 4:17 PM [facility] REPOSITORY Order Comment: DR. OROPEZA ORDERED CMP, TSH, T4F,T3F, AND URINE ORDERED VITD,T4F,TSH,CMP,CBCD,LIPID TYPE CODE TESTS RESULT OUT OF RANGE REFERENCE UNITS LAB L506.0400 0.76-1.46 ng/dL Normal T4 FREE 1.20 DIRECT Performed By: #### L506.1000, L500.4050, L500.4100, L501.9520, L506.0400, L100.0100 #### [facility] [address] [place], [address] CBC W/DIFF, AUTOMATED Collected: 08/14/2018 Status: F Source: [place] 4:17 PM [facility] REPOSITORY Order Comment: DR. OROPEZA ORDERED CMP, TSH, T4F,T3F, AND URINE ORDERED VITD,T4F,TSH,CMP,CBCD,LIPID TYPE CODE TESTS RESULT OUT OF RANGE REFERENCE UNITS LAB L100.1000 4.4-11.0 K/mm3 Normal WBC 7.3 LAB L100.1200 4.2-5.4 M/mm3 Normal RBC 4.27 LAB L100.1300 12.0-15.0 g/dl Normal HGB 13.2 LAB L100.1400 37-47 % Normal HCT 40.7 LAB L100.1500 81-99 fL Normal MCV 95.3 LAB L100.1600 27.0-32.0 pg Normal MCH 30.9 LAB L100.1700 32-36 g/gl Normal MCHC 32.4 LAB L100.1810 11.6-14.6 % Normal RDW CV 13.5 LAB L100.1820 35.1-43.9 fl High RDW SD 46.8 LAB L100.1900 150-450 K/mm3 Normal PLT 248 LAB L100.2000 6.2-12.0 fl Normal MPV 10.1 LAB L100.2100 47-70 % Normal NEUT% 58.9 LAB L100.2200 19-41 % Normal LY% 30.8 LAB L100.2300 0-10 % Normal MONO% 7.3 LAB L100.2400 0-5 % Normal EO% 2.6 LAB L100.2500 0-1 % Normal BASO% 0.3 LAB L100.2550 0.0-0.9 % Normal IM GRAN % 0.100 Result Comment: IG% - Immature Granulocytes (promyelocytes, myelocytes and metamyelocytes) > 1% indicates that a LEFT SHIFT is Present. LAB L100.2620 2.0-7.7 X10 3/uL Normal Absolute Neut 4.3 LAB L100.2720 0.83-4.51 X10 3/ul Normal Absolute Lymph 2.24 Performed By: #### L506.1000, L500.4050, L500.4100, L501.9520, L506.0400, L100.0100 #### [facility] [address] [place], [address] FREE T3 Collected: 08/14/2018 Status: F Source: [place] 4:17 PM [facility] REPOSITORY Order Comment: DR. OROPEZA ORDERED CMP, TSH, T4F,T3F, AND URINE ORDERED VITD,T4F,TSH,CMP,CBCD,LIPID TYPE CODE TESTS RESULT OUT OF RANGE REFERENCE UNITS LAB L501.94545 2.18-3.98 pg/mL Normal FREE T3 2.6 Performed By: #### L501.73639 #### [facility] [address] [place], [address] SCREENING MAMM (CAD), Observed: 08/13/2018 Status: F Source: [facility] 12:43 PM [facility] REPOSITORY [facility] Imaging Services [address] [place] [address] SCREENING MAMM (CAD), BILAT MR#: [id number] Acct: [id number] Name: REJI LEE Rep #: [id number] : 1950 F 67 From: Ganesh Dolan MD PCP: Michele Palma MD Status: REG CLI Study: SCREENING MAMM (CAD), BILAT Date of Exam: 08/13/18 Exam# [id number] Ordering Dr: Michele Palma MD MAMMOGRAPHY - BILATERAL SCREENING REASON FOR EXAM: Female, 67 years old. Routine annual screening examination. PERTINENT HISTORY: Non-contributory. TECHNIQUE: Digital bilateral breast jannet (3D mammographic acquisition) in the CC and MLO projections. 2-D mediolateral oblique (MLO) and craniocaudad (CC) views of both breasts were obtained. CAD: Full Field Digital Mammography with Computer Added Detection was performed. COMPARISON: Comparison is made with prior study dated June 08, 2017 and March 13, 2016. FINDINGS: Breast Composition: The breasts are heterogeneously dense, which may obscure small masses. There are no dominant masses or suspicious calcifications. A pacemaker battery pack is once again seen in the left axillary region. There is asymmetry of breast tissue with more breast tissue is seen in the right breast as compared to the left side. This is a normal variant. This is unchanged. No other significant abnormalities are identified. There has been no significant change since the prior study. BI/SCREENING MAMM (CAD), BILAT IMPRESSION: Stable bilateral screening mammogram. Yearly follow-up mammogram recommended. (A) ASSESSMENT CATEGORY: BIRADS Category 2: Benign. A letter regarding these results will be sent to the patient by the facility within 30 days. Approximately 10% of breast cancers are not detected by mammography. A normal mammogram should not delay biopsy of a clinically suspicious abnormality. [id number] Electronically Signed: Ganesh Dolan MD at 15:11 EST Tel [phone], Service support , CC: Michele Palma MD [employer] Superintendent: Signed THORACIC SPINE 3 Observed: 05/20/2018 Status: F Source: [place] VIEWS 1:35 PM [facility] REPOSITORY [facility] Imaging Services [address] [place] [address] Thoracic Spine 3 Views MR#: [id number] Acct: [id number] Name: REJI LEE Rep #: [id number] : 1950 F 67 From: Demetrius Melissa MD PCP: Michele Palma MD Status: REG CLI Study: Thoracic Spine 3 Views Date of Exam: 05/20/18 Exam# [id number] Ordering Dr: Missy York MD STUDY: X-RAY - THORACIC SPINE REASON FOR EXAM: Female, 67 years old. Back pain. TECHNIQUE: 3 view(s) of the thoracic spine were obtained. COMPARISON: 3 views of the thoracic spine June 14, 2015. CT chest/thorax August 30, 2016 was not available for review at the time of this dictation. FINDINGS: Normal kyphosis of the thoracic spine. There is no substantial scoliosis. There is stable multilevel endplate spondylosis of the thoracic vertebrae. Changes of prior cement augmentation at T9 again noted, with possible retropulsion of cement into the spinal canal. There is borderline disc height narrowing T5-9. No acute osseous destructive lesion or fracture. The paraspinal soft tissue structures are unremarkable. Ultimately cardiac pacemaker/AICD again noted. RAD/Thoracic Spine 3 Views IMPRESSION: Stable x-ray examination of the thoracic spine, as described. Electronically Signed: Fabian Melissa MD at 16:16 EDT , Service support , CC: Missy York MD; Michele Palma MD Steam And Power Superintendent: Signed PACEMAKER CHECK Observed: 05/16/2018 Status: F Source: [place] 9:33 AM [facility] REPOSITORY [facility] [address] [place] [address] Pacemaker Check Date of Service: 05/15/18 1858 MR#: [id number] Acct: [id number] Name: REJI LEE Rep #: [id number] : 1950 From: Alana Roberts Age/Sex: 67/F Location: [facility] Status: Signed Billing Codes ICD Device Billing: ICD Dev Interrogate (Rmt) 05/15/18 1902 <Electronically signed by Alana Roberts > Date Alana Roberts 05/16/18 0933<Electronically signed by Jace Subramanian MD> Cosigner Signature: Date (if applicable) Jace Subramanian MD CC: HEMOGLOBIN A1C Collected: 03/14/2018 Status: F Source: [place] 9:21 AM [facility] REPOSITORY TYPE CODE TESTS RESULT OUT OF RANGE REFERENCE UNITS LAB L501.9985 4.2-6.3 % Normal HGB A1C 5.6 Performed By: #### L501.9985 #### [facility] [address] [place], [place], [address] THYROID STIM HORMONE Collected: 03/14/2018 Status: F Source: [place] (TSH) 9:21 AM [facility] REPOSITORY TYPE CODE TESTS RESULT OUT OF RANGE REFERENCE UNITS LAB L501.9520 0.358-3.74 uIU/mL Normal TSH 2.64 Performed By: #### L501.9520 #### [facility] [address] [place], [address] PACEMAKER CHECK Observed: 02/08/2018 Status: F Source: [place] 2:14 PM [facility] REPOSITORY [facility] [address] [place] [address] Pacemaker Check Date of Service: 01/28/18 1120 MR#: [id number] Acct: [id number] Name: REJI LEE Rep #: [id number] : 1950 From: Alana Roberts Age/Sex: 67/F Location: [facility] Status: Signed Comments Summary Comments: Remote Dual Chamber Bi-VICD Evaluation: See attached scanned remote Latitude report. Remote interrogation shows 1538 MS episodes, <1% total time and no VT/VF episodes since 06/25/17. Stored e-grams show atrial farfield oversensing and not true AT/AF episodes. Atrial sensivity AGC. Presenting rhythm shows AV sequential Bi-Vpaced @ 67 ppm. Bi-Vpaced=99%. Estimated battery life 8 years. Device and lead measurements remain stable. Pt notified remote transmission received and next f/u appt scheduled for in 3 mos. Device Device Date Interviewed: 01/28/18 Follow-up Location: remote Interview Reason: scheduled follow up Activity Therapy Teacher: [employer] Scientific Name: Inogen x4 DF4 Model: G148 Serial #: [id number] Implant Date: 02/14/17 Year(s): 0 Implant Physician: Dr Herbert/[facility] Patient Characteristics Patient Substrate: Nonischemic cardiomyopathy Ejection fraction %: 25 to 29 (01/22/2017) By: Echo Underlying rhythm: Sinus rhythm Pacemaker Dependent: No Device Characteristics Device: Biventricular Type: Implantable defibrillator Remote Follow-Up: Latitude Leads Lead #1 Activity Therapy Teacher Lead 1: Medtronic Model Lead 1: 5076/52 Serial# Lead 1: [id number] Date Implanted Lead 1: 01/25/17 Position Lead 1: RA Lead #2 Activity Therapy Teacher Lead 2: [employer] Model Lead 2: 0292 Serial# Lead 2: [id number] Date Implanted Lead 2: 02/14/17 Position Lead 2: RV Lead #3 Activity Therapy Teacher Lead 3: Medtronic Model Lead 3: 4598 Serial# Lead 3: [id number] Date Implanted Lead 3: 02/14/17 Position Lead 3: LV Tachy Settings Tachyarrhythmia Detection Ventricular Fibrillation Detect Rate: 220 bpm Faster VT Detect Rate: 180 bpm Tachyarrhythmia Therapies Ventricular Fibrillation Therapy: Shock therapy Initial shock: 41 Joules Final shock: 41 Joules. Fast Ventricular Tachycardia Therapies: Antitachycardia pacing and shock therapy Initial shock: 29 Joules Final shock: 41 Joules. Vikram Settings Pacemaker Mode: DDDR Base Rate: 70 bpm Max Track Rate: 130 bpm Max Sensor Rate: 130 bpm Maximum AV Delay: 150 msec Bradycardia Output and Sensitivity Settings Right Atrium: 0.4 msec, 2.0 volts, Automatic0.4 mV sensitivity. Right Ventricle: 0.4 msec, 0.7 volts, Automatic mV sensitivity. Left Ventricle: 0.4 msec, 2.0 volts, Automatic mV sensitivity. Billing Codes ICD Device Billing: ICD Dev Interrogate (Rmt) Assessment AND Plan Problems 1. Biventricular implantable cardioverter-defibrillator (ICD) in situ Z95.810 02/14/[address] [facility] [address] Herbert 2. Nonischemic cardiomyopathy I42.8 3. Left bundle-branch block I44.7 02/08/18 1234 <Electronically signed by Alana Roberts > Date Alana Roberts 02/08/18 1414<Electronically signed by Jace Subramanian MD> Cosigner Signature: Date (if applicable) Jace Subramanian MD CC: ECHOCARDIOGRAM COMPLETE Observed: 01/04/2018 Status: F Source: [place] 5:21 PM [facility] REPOSITORY [facility] Cardiovascular Services [address] [place] [address] Echo Complete 01/04/18 1508 MR#: [id number] Acct: [id number] Name: REJI LEE Rep #: [id number] : 1950 67 From: Jace Subramanian MD Attending Dr: Jace Subramanian MD Status: REG CLI Ordering Dr: Jace Subramanian MD Date: 01/04/18 Location: [facility] Sex: F C Admitted: Reason For Study: DYSPNEA/SOB Procedure This was a 2D Doppler, Color Flow transthoracic echocardiogram. Exam performed in department. Left Ventricle Normal LV size. The estimated ejection fraction is 55 %. Left ventricular systolic function is normal. No evidence for diastolic dysfunction. No regional wall motion abnormalities noted. Right Ventricle Normal RV size. ICD or pacer leads identified within the right ventricle. Normal systolic function. Atria Normal left atrium. Normal right atrium. Bubble contrast study negative for right to left interatrial shunt. Mitral Valve Normal mitral valve. Mild (1+) eccentric mitral valve insufficiency. Tricuspid Valve Normal tricuspid valve. Mild tricuspid valve insufficiency. Pulmonary artery systolic pressure is 23 mmHg. Aortic Valve Normal aortic valve. Pulmonic Valve Normal pulmonic valve. Great Vessels Normal aortic root. The pulmonary artery is normal size. Normal inferior vena cava. Pericardium/Pleural No pericardial effusion. Medication 22 gauge I.V. with prn adaptor inserted into right arm. Performed a rapid injection of agitated mix of 9 cc saline and 1cc air to assess for atrial septal defect. MMode/2D Measurements AND Calculations LVIDd: 3.7 cm IVSd: 0.94 cm Ao root diam: 2.9 cm LVIDs: 2.5 cm LVPWd: 0.98 cm RVDd: 2.9 cm FS: 30.7 % LAV(MOD-bp): 34.3 ml EDV(MOD-sp4): 83.4 ml SV(MOD-sp4): 48.8 ml LAV(MOD-bp) Indexed: 20.2 ml/m2 ESV(MOD-sp4): 34.6 ml LAV(MOD-sp2): 33.4 ml EF(MOD-sp4): 58.5 % LAV(MOD-sp4): 35.4 ml LA A4 area: 14.6 cm2 RA A4 area: 11.1 cm2 Time Measurements MV dec time: 0.22 sec Doppler Measurements AND Calculations MV E max isiah: 102.0 cm/sec Lat Peak E' Isiah: 7.8 cm/sec Med Peak E' Isiah: 7.2 cm/sec MV A max isiah: 113.3 cm/sec E/E' lat: 13.0 E/E' med: 14.1 MV E/A: 0.90 Ao V2 max: 123.4 cm/sec LV V1 max: 88.6 cm/sec PA V2 max: 72.1 cm/sec Ao max P.1 mmHg LV V1 max P.1 mmHg TR max isiah: 229.9 cm/sec TR max P.2 mmHg Interpretation Summary Normal LV size. The estimated ejection fraction is 55 %. Left ventricular systolic function is normal. No evidence for diastolic dysfunction. Mild tricuspid valve insufficiency. Pulmonary artery systolic pressure is 23 mmHg. Compared to the previous the LV is improved Ordering Physician: Jace Subramanian Referring Physician: Jace Subramanian Performed By: Dulce Gagonn RDCS 01/04/18 1721 Date Jace Subramanian MD CC: Jace Subramanian MD; Michele Palma MD Date Dictated: 01/04/18 1508 Date Transcribed: 01/04/18 1721 Steam And Power Superintendent: Signed BASIC METABOLIC Collected: 12/25/2017 Status: F Source: [place] PROFILE (BMP) 3:12 PM [facility] REPOSITORY TYPE CODE TESTS RESULT OUT OF RANGE REFERENCE UNITS LAB L501.0100 74-106 mg/dL Normal GLU 104 Result Comment: Fasting Glucose result from 100 to 125 mg/dL suggests IMPAIRED HOMEOSTASIS per A.D.A. criteria. Please note revised GLUCOSE reference range effective 2017. LAB L501.1000 7-18 mg/dL High BUN 32 LAB L501.1100 0.55-1.02 mg/dL Normal CREAT,SERUM 0.96 Result Comment: The validity of the calculated GFR AND GFRAA in patients over 70 years has not been determined. Clinical correlation is essential. LAB L501.1110 >60 mL/min Normal EST GFR 62 Result Comment: Non- GFR Calc LAB L501.1115 >60 mL/min Normal EST GFR - AA 75 Result Comment: GFR Calc LAB L501.1300 10-20 RATIO High BUN/CRE 33.4 LAB L501.2200 8.5-10.1 mg/dL CA Normal 8.9 LAB L501.5300 136-145 mmol/L NA Normal 139 LAB L501.5600 3.5-5.1 mmol/L K Normal 4.2 LAB L501.5900 98-107 mmol/L CL Normal 105 LAB L501.6100 21.0-32.0 mmol/L Normal CO2 27.0 LAB L501.6200 5-15 Normal GAP 7 Performed By: #### L500.2500, L501.82841, L501.9520, L506.0400 #### [facility] [address], [address] FREE T3 Collected: 12/25/2017 Status: F Source: [place] 3:12 PM [facility] REPOSITORY TYPE CODE TESTS RESULT OUT OF RANGE REFERENCE UNITS LAB L501.02076 2.18-3.98 pg/mL Normal FREE T3 2.9 Performed By: #### L500.2500, L501.79870, L501.9520, L506.0400 #### [facility] [address] [facility] [place], [address] THYROID STIM HORMONE Collected: 12/25/2017 Status: F Source: [place] (TSH) 3:12 PM [facility] REPOSITORY TYPE CODE TESTS RESULT OUT OF RANGE REFERENCE UNITS LAB L501.9520 0.358-3.74 uIU/mL Normal TSH 2.28 Performed By: #### L500.2500, L501.12440, L501.9520, L506.0400 #### [facility] [address] [facility] [place], [address] T4 FREE DIRECT Collected: 12/25/2017 Status: F Source: [place] 3:12 PM [facility] REPOSITORY TYPE CODE TESTS RESULT OUT OF RANGE REFERENCE UNITS LAB L506.0400 0.76-1.46 ng/dL Normal T4 FREE 1.04 DIRECT Performed By: #### L500.2500, L501.78437, L501.9520, L506.0400 #### [facility] [address] [facility] [place], [address] CBC W/DIFF, AUTOMATED Collected: 12/25/2017 Status: F Source: [place] 3:12 PM [facility] REPOSITORY TYPE CODE TESTS RESULT OUT OF RANGE REFERENCE UNITS LAB L100.1000 4.4-11.0 K/mm3 Normal WBC 6.7 LAB L100.1200 4.2-5.4 M/mm3 Normal RBC 4.26 LAB L100.1300 12.0-15.0 g/dl Normal HGB 12.8 LAB L100.1400 37-47 % Normal HCT 39.5 LAB L100.1500 81-99 fL Normal MCV 92.7 LAB L100.1600 27.0-32.0 pg Normal MCH 30.0 LAB L100.1700 32-36 g/gl Normal MCHC 32.4 LAB L100.1810 11.6-14.6 % Normal RDW CV 13.1 LAB L100.1820 35.1-43.9 fl High RDW SD 44.1 LAB L100.1900 150-450 K/mm3 Normal PLT 198 LAB L100.2000 6.2-12.0 fl Normal MPV 9.5 LAB L100.2100 47-70 % Normal NEUT% 52.8 LAB L100.2200 19-41 % Normal LY% 36.7 LAB L100.2300 0-10 % Normal MONO% 7.6 LAB L100.2400 0-5 % Normal EO% 2.5 LAB L100.2500 0-1 % Normal BASO% 0.3 LAB L100.2550 0.0-0.9 % Normal IM GRAN % 0.100 Result Comment: IG% - Immature Granulocytes (promyelocytes, myelocytes and metamyelocytes) > 1% indicates that a LEFT SHIFT is Present. LAB L100.2620 2.0-7.7 X10 3/uL Normal Absolute Neut 3.5 LAB L100.2720 0.83-4.51 X10 3/ul Normal Absolute Lymph 2.46 Performed By: #### L100.0100 #### [facility] [address] [place], [address] VITAMIN D,25 HYDROXY Collected: 12/25/2017 Status: F Source: JUAN 3:12 PM [facility] REPOSITORY TYPE CODE TESTS RESULT OUT OF RANGE REFERENCE UNITS LAB L506.1000 29.95-100.01 ng/mL Normal Vitamin D 87.0 25-OH Result Comment: Vitamin D 25(OH) Status Range Deficiency <20 ng/mL (50nmol/L) Insuffciency 20 - 30 ng/mL (50 - 75 nmol/L) Sufficiency 30 - 100 ng/mL (75 - 250 nmol/L) Toxicity >100 ng/mL (>250 nmol/L) Performed By: #### L506.1000 #### [facility] [address] [place], [address] CARDIOLOGY VISIT Observed: 12/25/2017 Status: F Source: JUAN REPORT 10:19 AM [facility] REPOSITORY [facility] [address] [place] [address] OFFICE VISIT Date of Service: 12/25/17 MR#: [id number] Acct: [id number] Name: REJI LEE Rep #: [id number] : 1950 Provider: Jace Subramanian MD Age/Sex: 67/F Location: [facility] Status: Signed HPI HPI Chief Complaint: Follow-up visit. Details: REJI LEE, is a 67 F who presents to the office today for a follow-up visit. She is a lady with a history of nonischemic cardiomyopathy but no congestive heart failure symptoms. She went on to have a cardiac resynchronization device placed she has been doing well denying any chest pain or shortness breath or paroxysmal nocturnal dyspnea or pedal edema she has complained of some neck discomfort. Her diaphragmatic stimulation appears to be better. She does have mild dizziness. She continues to follow-up in our pacemaker clinic. Her physical exam today demonstrates clear lung azul regular rate and rhythm and no pedal edema her blood pressure is under good control. Intake Vital Signs12/25/17 Height 5 ft 3 in 12/25/17 Weight: 151 lb 12/25/17 Body Mass Index (BMI) 26.7 12/25/17 Blood Pressure 90/60 Intake Visit Reasons: 6 M FU Virtual Office Assistant Required: No Is patient in pain?: Yes Allergies clindamycin Allergy (Severe, Verified 12/25/17 09:46) Hives indomethacin [From Indocin] Allergy (Severe, Verified 12/25/17 09:46) hives,swelling amoxicillin [From Augmentin] Adverse Reaction (Severe, Verified 12/25/17 09:46) Nausea/Vom/Diarrhea, severe GI upset carvedilol [Coreg] Adverse Reaction (Severe, Verified 12/25/17 09:46) Shortness of breath, myalgias clavulanic acid [From Augmentin] Adverse Reaction (Severe, Verified 12/25/17 09:46) Nausea/Vom/Diarrhea/severe GI upset diclofenac Adverse Reaction (Severe, Verified 12/25/17 09:46) Severe GI upset erythromycin base Adverse Reaction (Severe, Verified 12/25/17 09:46) Nausea/Vom/Diarrhea, severe GI upset fentanyl Adverse Reaction (Severe, Verified 12/25/17 09:46) Locked jaw, confusion meloxicam [From Mobic] Adverse Reaction (Severe, Verified 12/25/17 09:46) Hallucinations Sulfa (Sulfonamide Antibiotics) Adverse Reaction (Severe, Verified 12/25/17 09:46) Severe Itching sulfamethoxazole [From Bactrim] Adverse Reaction (Severe, Verified 12/25/17 09:46) Severe Itching trimethoprim [From Bactrim] Adverse Reaction (Severe, Verified 12/25/17 09:46) severe itching venlafaxine [From Effexor] Adverse Reaction (Severe, Verified 12/25/17 09:46) Racing pulse zolpidem [From Ambien] Adverse Reaction (Severe, Verified 12/25/17 09:46) Agitation baclofen Adverse Reaction (Intermediate, Verified 12/25/17 09:46) crawling skin cefdinir [From Omnicef] Adverse Reaction (Intermediate, Verified 12/25/17 09:46) Itching duloxetine [From Cymbalta] Adverse Reaction (Intermediate, Verified 12/25/17 09:46) Nausea lisinopril Adverse Reaction (Intermediate, Verified 12/25/17 09:46) cough, nausea, abdominal pain lovastatin Adverse Reaction (Intermediate, Verified 12/25/17 09:46) Myalgias pregabalin [From Lyrica] Adverse Reaction (Intermediate, Verified 12/25/17 09:46) Nausea, crawling skin tizanidine Adverse Reaction (Intermediate, Verified 12/25/17 09:46) crawling skin trazodone [From Desyrel] Adverse Reaction (Verified 12/25/17 09:46) Hallucination Medications Levothyroxine [Synthroid] 25 mcg PO DAILY 05/27/16 [History Confirmed 12/21/17] Pravastatin [Pravachol] 20 mg PO DAILY 05/27/16 [History Confirmed 12/21/17] Teriparatide [Forteo] 20 mcg SQ DAILY 05/27/16 [History Confirmed 12/25/17] Ascorbic Acid/Ascorbate Ca [Fruit C-100 Tablet Chewable] 100 mg PO DAILY 06/29/16 [History Confirmed 12/21/17] Calcium Citrate 250 mg PO DAILY 06/29/16 [History Confirmed 12/25/17] Ergocalciferol [Vitamin D] 50,000 unit PO Q7D 06/29/16 [History Confirmed 12/21/17] Famotidine [Pepcid] 20 mg PO DAILY PRN 06/29/16 [History Confirmed 12/21/17] Fexofenadine HCl 180 mg PO DAILY 06/29/16 [History Confirmed 12/21/17] Folic Acid/B Complex C No.17 [Virt-Neda Plus Tablet] 5 mg PO DAILY 06/29/16 [History Confirmed 12/21/17] Magnesium Oxide [Mag-Ox 400] 400 mg PO BID 06/29/16 [History Confirmed 12/21/17] Nitrofurantoin Macrocrystals [Macrobid] 100 mg PO DAILY 06/29/16 [History Confirmed 12/21/17] Range-3 Fatty Acids/Fish Oil [Range 3 Fish Oil Softgel] 1 ea PO DAILY 06/29/16 [History Confirmed 12/21/17] Ubidecarenone [Coenzyme Q10] 10 mg PO DAILY 06/29/16 [History Confirmed 12/21/17] fluoxetine 20 mg capsule 20 mg PO QDAY 12/21/17 [History Confirmed 12/21/17] melatonin 1 mg tablet 1 mg PO .COMPLEX 12/21/17 [History Confirmed 12/21/17] multivitamin tablet 1 tab PO QDAY 12/21/17 [History Confirmed 12/21/17] losartan 25 mg tablet 25 mg PO QDAY #90 tab 12/25/17 [Rx Confirmed 12/25/17] metoprolol tartrate 25 mg tablet 25 mg PO BID #180 tab 12/25/17 [Rx Confirmed 12/25/17] Ejection fraction %: 35 to 39 PFSH Medical History GERD (gastroesophageal reflux disease) (Chronic) Hypertension (Chronic) Hyperlipidemia (Chronic) Hypothyroidism (Chronic) Left bundle-branch block (Chronic) Nonischemic cardiomyopathy (Chronic) Surgical History History of left heart catheterization (Chronic) Biventricular implantable cardioverter-defibrillator (ICD) in situ (Chronic) Family History Other CAD (coronary artery disease) CVA (cerebral vascular accident) Myocardial infarction Social History Smoking Status: Never smoker ROS Const Const: Negative for fatigue, weakness, body ache, fever(s), headache(s), chills, frequent falls, night sweats, daytime sleepiness, difficulty sleeping, excessive sweating, weight gain, weight loss, increased appetite, poor appetite, anorexia or other Eyes Eyes: Negative for blind spots, loss of peripheral vision, transient loss of vision, blurry vision, change in vision, double vision, floaters, tunnel vision or other ENT ENT: Negative for headache(s), dizziness, hearing loss, tinnitus, Nosebleed/epistaxis, balance problems, post nasal drip, lip swelling, tongue swelling, bleeding gums, hoarseness, neck pain, dry mouth or other Cardio Chest Pain: Yes (every day, pain radiating from chest to between neck and left shoulder) Frequency: daily Character: sharp Onset: at rest Location: mid sternal Duration: minutes (10 minutes to half a day) Exacerbation: other (spontaneous) Relieving: other (spontaneous) Recurrence: other (no particular pattern) Palpitations: No Edema: Bilateral (Nonpitting) Muscle aches with walking: None Resp Respiratory: Positive for SOB with activity (slight, with working hard or walking fast); negative for SOB at rest, SOB orthopnea\SOB lying down, Coughing up blood/hemoptysis, chest congestion, pain on inspiration, snoring, stridor, wheezing, crackles, paroxysmal nocturnal dyspnea or other GI GI: Negative nausea, vomiting, heartburn, constipation, belching, bloating, cramping, vomiting blood/hematemesis, bright, red blood in stools, black,tarry stools, loose stools, Difficulty Swallowing or other : Negative for hematuria, frequent nighttime urination/ nocturia, erectile dysfunction or abnormal vaginal bleeding Musc Musc: Negative for balance problems, muscle aches/ myalgia, muscle weakness or joint pain Skin Skin: Negative redness, non-healing lesions, rash, unusual bruising, skin ulcer, wounds, jaundice or other Neuro Neuro: Negative for weakness, headache(s), frequent falls, blurry vision, double vision, dizziness, lightheadedness, near syncope, syncope, orthostatic symptoms, confusion, memory loss, restless legs, vertigo, seizures, lack of coordination or other Jorge Hematologic/Lymphatic: Negative for easy bleeding, easy bruising, enlarged lymph nodes or other Endo Endo: Negative for fatigue, excessive sweating, cold intolerance, heat intolerance, flushing, increased thirst/drinking, increased hunger, hair loss, hair growth or other Psych Psych: Negative for anxiety, depression, thoughts of harming anyone, thoughts of harming yourself, visual hallucinations, panic attacks or audible hallucinations Allergy Allergy/Immunology: Negative for lip swelling, Negative for tongue swelling, Negative for rash, Negative for throat swelling, Negative for hives Cardiology Exam Const Appearance: cooperative, healthy appearing, well developed, well groomed and no acute distress Nutritional Appearance: well nourished and average body habitus Orientation: alert, awake and oriented x3 Head Head: normal to inspection, normocephalic and atraumatic Ears: hearing grossly normal bilaterally and external ears normal Nose: external nose normal, nasal mucous membranes and turbinates normal, nares normal, septum normal, no nasal discharge Face and Sinus: face symmetric Mouth: oral mucosae normal, tongue normal, oropharynx normal and moist mucous membranes Teeth and gingiva: dentition normal Throat: posterior oropharynx normal, tonsils normal and uvula midline Eyes General: appearance normal, both eyes and all related structures Eyelids: eyelids normal Conjunctivae: conjunctivae normal Pupils: PERRL, normal by confrontation and accommodation normal EOM: EOM intact bilaterally Neck Neck: normal visual inspection, trachea midline and no JVD JVD: +5 Carotids: normal carotid upstroke and bounding pulses Chest Chest inspection: normal inspection of the chest, symmetric chest movement and normal respiratory effort Auscultation: Bilateral: Clear to Auscultation Cardio Palpation: normal PMI Rate: regular rate Rhythm: regular rhythm Heart sounds: S1 normal, S2 normal and normal, physiologic split S2; negative rub, gallop or murmur GI GI: normal to inspection, soft, no hepatosplenomegaly and bowel sounds present Neuro General: alert, awake, oriented x3, no focal sensory deficit, gait normal and moves all extremities Skin Skin: no rashes or lesions noted Extremities Pulses: Normal: Right Femoral Pulse, Left Femoral Pulse, Right Dorsalis Pedis Pulse, Left Dorsalis Pedis Pulse, Right Posterior Tibial Pulse, Left Posterior Tibial Pulse, Right Radial Pulse, Left Radial Pulse Lower Extremity Edema: None: Bilateral Musculoskel Musculoskeletal: No joint tenderness Psych Psychological: normal affect Assessment AND Plan 1. Nonischemic cardiomyopathy I42.8 Plan She does have a history of cardiomyopathy but no heart failure symptoms remain on her beta-gokul and ARB at this current dose. Her blood pressures do not allow us to increase this any further. It is almost a year since her device was placed and I would recommend that we obtain an echocardiogram to reassess her left ventricular function. You do remember that her ejection fraction prior to this was noted to be 25%. Orders Orders: 2. Biventricular implantable cardioverter-defibrillator (ICD) in situ Z95.810 02/14/17 @ [facility] [address] Herbert Plan She does have a biventricular device in situ. We will continue to check this in our pacemaker clinic her diaphragmatic stimulation has been minimized. No other changes will be made. Orders Orders: Plan Detail Other Medications New: Follow Up 1 Year (chin strap maker) Coding Level of Care Code Off vis,est,level 3 Diagnoses Nonischemic cardiomyopathy I42.8 Biventricular implantable cardioverter-defibrillator (ICD) in situ Z95.810 Coding Level of Care Code Off vis,est,level 3 Diagnoses Nonischemic cardiomyopathy I42.8 Biventricular implantable cardioverter-defibrillator (ICD) in situ Z95.810 12/25/17 1019 <Electronically signed by Jace Subramanian MD> Date Jace Subramanian MD Cosigner Signature: Date (if applicable) CC: Michele Palma MD OFFICE VISIT REPORT Observed: 11/05/2017 Status: F Source: JUAN 4:47 PM [facility] [address] [place] [address] OFFICE VISIT Date of Service: 10/24/17 MR#: [id number] Acct: [id number] Patient: REJI LEE Rep #: [id number] : 1950 Provider: Alana Roberts Age/Sex: 67/F Location: [facility] [place] Status: Signed Comments Summary Comments: Remote Bi-VICD Evaluation: Remote interrogation shows 1267 MS episodes, <1% total time, longest episode 20 secs and no VT/VF episodes since last check 06/25/17. Presenting rhythm shows AV sequential BiVpaced @ 74 ppm. Bi-Vpaced=98%. Battery longevity approx 8 yrs. Lead impedances and atrial sensing remain stable. Normal remote Bi-VICD function. Pt notified remote transmission received and next f/u appt scheduled for in 3 mos. Device Device Date Interviewed: 10/24/17 Follow-up Location: remote Interview Reason: scheduled follow up Activity Therapy Teacher: [employer] Media Name: Inogen x4 DF4 Model: G148 Serial #: [id number] Implant Date: 02/14/17 Year(s): 0 Implant Physician: Dr Herbert/SERENA Patient Characteristics Patient Substrate: Nonischemic cardiomyopathy Ejection fraction %: 25 to 29 (01/22/2017) By: Echo Underlying rhythm: Sinus rhythm Pacemaker Dependent: No Device Characteristics Device: Biventricular Type: Implantable defibrillator Remote Follow-Up: Latitude Leads Lead #1 Activity Therapy Teacher Lead 1: [employer] Model Lead 1: 5076/52 Serial# Lead 1: [id number] Date Implanted Lead 1: 01/25/17 Position Lead 1: RA Lead #2 Activity Therapy Teacher Lead 2: [employer] [employer] Model Lead 2: 0292 Serial# Lead 2: [id number] Date Implanted Lead 2: 02/14/17 Position Lead 2: RV Lead #3 Activity Therapy Teacher Lead 3: Medtronic Model Lead 3: 4598 Serial# Lead 3: [id number] Date Implanted Lead 3: 02/14/17 Position Lead 3: LV Diagnostics Pacing % RA Pacin % RV Pacin % LV Pacin Mode Switching Total # Episodes: 1,267 % Mode switched: 1 Arrhythmias VF Episodes: 0 Fast VT Episodes: 0 Slow VT Episodes: 0 Non-Sust Episodes: 0 Measurements Battery Charge Time (Sec): 9.6 Battery Status: SANJAY Predicted Remaining Longevity (months or years): 8 years RA Measurements Signal Amplitude (mV): 2.3 Impedance (Ohms): 473 RV Measurements Impedance (Ohms): 405 Shock Impedance (Ohms): 79 LV Measurements Impedance (Ohms): 566 Tachy Settings Tachyarrhythmia Detection Ventricular Fibrillation Detect Rate: 220 bpm Faster VT Detect Rate: 180 bpm Tachyarrhythmia Therapies Ventricular Fibrillation Therapy: Shock therapy Initial shock: 41 Joules Final shock: 41 Joules. Fast Ventricular Tachycardia Therapies: Antitachycardia pacing and shock therapy Initial shock: 29 Joules Final shock: 41 Joules. Vikram Settings Pacemaker Mode: DDDR Base Rate: 70 bpm Max Track Rate: 130 bpm Max Sensor Rate: 130 bpm Maximum AV Delay: 150 msec Billing Codes ICD Device Billing: ICD Dev Interrogate (Rmt) 11/05/17 1400 <Electronically signed by Alana Roberts > Date Alana Roberts 11/05/17 1647<Electronically signed by Jace Subramanian MD> Cosigner Signature: Date (if applicable) Jace Subramanian MD CC: ALLERGIES ALLERGIES DATE TYPE / NAME / CODE REACTION SEVERITY SOURCE CODE 12/25/2017 Drug Sulfa (Sulfonamide severe itching [place] Allergy/41 Antibiotics)/F0010 Community 4702848( 20059(RXNO) [facility]) Repository 12/25/2017 Drug lisinopril/L113278 cough, nausea, [place] Allergy/41 658(RXNORM) abdominal pain Community 8559914([facility]) Repository 12/25/2017 Drug baclofen/Q94633808 crawling skin [place] Allergy/41 7(RXNORM) Community 0842792([facility]) Repository 12/25/2017 Drug lovastatin/Q742949 MYALGIAS [place] Allergy/41 063(RXNORM) Community 0580691([facility]) Repository 12/25/2017 Drug indomethacin/F0060 hives,swelling [place] Allergy/41 79587(RXNORM) Community 6699252([facility]) Repository 12/25/2017 Drug erythromycin Nausea/Vom/Diarrhea [place] Allergy/41 base/Y693826760(RX , severe GI upset Community 0817354([facility]) Repository 12/25/2017 Drug clindamycin/T17122 Hives [place] Allergy/41 2794(RXNORM) Community 5389667([facility]) Repository 12/25/2017 Drug clavulanic Nausea/Vom/Diarrhea [place] Allergy/41 acid/B646528277(RX /severe GI upset Community 4363994([facility]) Repository 12/25/2017 Drug sulfamethoxazole/F severe itching [place] Allergy/41 770856000(RXNORM) Community 9431409([facility]) Repository 12/25/2017 Drug trimethoprim/F0060 severe itching [place] Allergy/41 85495(RXNORM) Community 8114185([facility]) Repository 12/25/2017 Drug fentanyl/J58793205 Locked jaw, [place] Allergy/41 1(RXNORM) confusion Community 1314989([facility]) Repository 12/25/2017 Drug amoxicillin/T75749 Nausea/Vom/Diarrhea [place] Allergy/41 3675(RXNORM) , severe GI upset Community 7342020([facility]) Repository 12/25/2017 Drug zolpidem/Q82201814 agitation [place] Allergy/41 6(RXNORM) Community 1806672([facility]) Repository 12/25/2017 Drug carvedilol/D958426 Shortness of [place] Allergy/41 167(RXNORM) breath, myalgias Community 2370375([facility]) Repository 12/25/2017 Drug diclofenac/Z850954 severe gi upset [place] Allergy/41 409(RXNORM) Community 3142663([facility]) Repository 12/25/2017 Drug venlafaxine/D23755 Racing pulse [place] Allergy/41 4428(RXNORM) Community 2237426([facility]) Repository 12/25/2017 Drug trazodone/Y6764200 hallucination Unknown [place] Allergy/41 10(RXNORM) Community 2129710([facility]) Repository 12/25/2017 Drug tizanidine/L412711 crawling skin [place] Allergy/41 021(RXNORM) Community 9592017([facility]) Repository 12/25/2017 Drug meloxicam/X8040262 hallucinations [place] Allergy/41 72(RXNORM) Community 6268989([facility]) Repository 12/25/2017 Drug cefdinir/A36782199 Itching [place] Allergy/41 8(RXNORM) [facility] 1232381([facility]) Repository 12/25/2017 Drug duloxetine/R524680 Nausea [place] Allergy/41 705(RXNORM) [facility] 6652134([facility]) Repository 12/25/2017 Drug pregabalin/Y230537 Nausea, crawling [place] Allergy/41 083(RXNORM) skin Community 0822029([facility]) Repository ENCOUNTERS ENCOUNTERS ADMIT/DISCHARGE ACCOUNT ADMITTING ENCOUNTER LOCATION SOURCE NUMBER CLASS 09/30/2018 [id number] [place] [facility] ing:[facility] Repository 09/30/2018 [id number] Ambulatory BMSBuilding:W [place] 8 [facility] Repository 09/25/2018 [id number] Ambulatory BMSBuilding:B [place] 9 [facility] Repository 09/18/2018 [id number] Ambulatory [place] 6 [facility] ing:OPBD Repository 09/16/2018/ [id number] Ambulatory BMSBuilding:B [place] 8 8 [facility] Repository 09/11/2018/ [id number] Ambulatory BMSBuilding:B [place] 8 3 [facility] Repository 09/10/2018 [id number] [place] [facility] ing:LAB Repository 09/04/2018 [id number] Ambulatory BMSBuilding:B [place] 8 [facility] Repository 08/14/2018 [id number] Ambulatory [place] 9 [facility] ing:MFPLAB Repository 08/13/2018 [id number] Ambulatory [place] 0 [facility] ing:OPBI Repository 05/20/2018 [id number] Ambulatory [place] 7 [facility] ing:MTRAD Repository 05/15/2018/ [id number] Ambulatory BMSBuilding:B [place] 8 1 [facility] Repository 03/14/2018 [id number] [place] [facility] ing:LAB Repository 01/28/2018/ [id number] Ambulatory BMSBuilding:B [place] 8 9 [facility] Repository 01/04/2018 [id number] [place] [facility] ing:[facility] Repository 01/04/2018 [id number] Ambulatory BMSBuilding:W [place] 7 [facility] Repository 12/25/2017 [id number] Ambulatory [place] 9 [facility] ing:LAB Repository 12/25/2017/ [id number] Ambulatory BMSBuilding:B [place] 8 8 [facility] Repository 10/30/2017/ [id number] Ambulatory BMSBuilding:B [place] 8 9 [facility] Repository 10/24/2017/ [id number] Ambulatory BMSBuilding:B [place] 8 3 [facility] Repository PAYERS PAYERS ENCOUNTER GUARANTOR PAYER SUBSCRIBER SOURCE 09/30/2018 REJI [id number] Primary ARCENIO TURNERB: [place] Insurance:MEDICAL [id number] [address]Wdv: (330) Number: Repository [phone] () [id number] Date:7899-89-61UI [address] [place], [place] [address]WP: 09/30/2018 Secondary NOT GIVENUNK [place] Insurance:SELF PAY [facility] Number: Effective Repository Date:2018-09-16 09/30/2018 REJI [id number] Primary ARCENIO TURNERB: [place] Insurance:MEDICAL [id number] Medical Center [address]Psh: (330) Number: Repository [phone] () [id number] Date:4445-74-59GS [address] [place], [place] [address]WP: 09/30/2018 Secondary NOT GIVENUNK [place] Insurance:SELF PAY [facility] Number: Effective Repository Date:2018-09-30 09/25/2018 REJI Saab [id number] Primary ARCENIO TURNERB: [place] Insurance:MEDICAL [id number] Medical Center [address]Ubn: (330) Number: Repository [phone] () [id number] Date:2665-01-23NV [place] [id number]: 09/25/2018 Secondary NOT GIVENUNK [place] Insurance:SELF PAY [facility] Number: Effective Repository Date:2018-05-15 09/18/2018 REJI [id number] Primary ARCENIO TURNERB: [place] Insurance:MEDICAL [id number] Medical Center [address]Hxp: (330) Number: Repository [phone] () [id number] Date:3087-63-84WB [place] [id number]: 09/18/2018 Secondary NOT GIVENUNK [place] Insurance:SELF PAY [facility] Number: Effective Repository Date:2018-09-10 09/16/2018 REJI Saab [id number] Primary ARCENIO TURNERB: [place] Insurance:MEDICAL [id number] Medical Center [address]Xyo: (330) Number: Repository [phone] () [id number] Date:9759-46-28ME [address] [address]DX: 09/16/2018 Secondary NOT GIVENUNK [place] Insurance:SELF PAY [facility] Number: Effective Repository Date:2018-09-16 09/11/2018 REJI Saab [id number] Primary ARCENIO TURNERB: [place] Insurance:MEDICAL [id number] Medical Center [id number]: (330) Number: Repository [phone] () [id number] Date:4386-11-85UU [address] [place] [address]AF: 09/11/2018 Secondary NOT GIVENUNK [place] Insurance:SELF PAY [facility] Number: Effective Repository Date:2018-09-11 09/10/2018 REJI Saab [id number] Primary ARCENIO TURNERB: [place] Insurance:MEDICAL [id number] [address]Tel: (330) Number: Repository [phone] () [id number] Date:7270-61-91QP [address] [address]XQ: 09/10/2018 Secondary NOT GIVENUNK [place] Insurance:SELF PAY [facility] Number: Effective Repository Date:2018-09-10 09/04/2018 REJI [id number] Primary Arcenio LeeDOB: [place] Insurance:MEDICAL [id number] [address]Tel: (330) Number: Repository [phone] () [id number] Date:7565-72-03OB [address] [address]SP: 09/04/2018 Secondary NOT GIVENUNK [place] Insurance:SELF PAY [facility] Number: Effective Repository Date:2018-05-15 08/14/2018 REJI Saab [id number] Primary ARCENIO LEEDOB: [place] Insurance:MEDICAL [id number] [place]ille [id number]: (330) Number: Repository [phone] () [id number] Date:1983-12-99KL [address] [address]NG: 08/14/2018 Secondary NOT GIVENUNK [place] Insurance:SELF PAY [facility] Number: Effective Repository Date:2018-08-14 08/13/2018 REJI [id number] Primary ARCENIO LEEDOB: [place] Insurance:MEDICAL [id number] [address]Krb: (330) Number: Repository [phone] () [id number] Date:5793-45-12TX [address] [phone]: 08/13/2018 Secondary NOT GIVENUNK [place] Insurance:SELF PAY [facility] Number: Effective Repository Date:2018-07-15 05/20/2018 REJI [id number] Primary ARCENIO Dawkins BARTHDOB: [place] Insurance:MEDICAL [id number] Medical Center [address]Zmw: (330) Number: Repository [phone] () [id number] Date:1324-31-98YC [address] [phone]: 05/20/2018 Secondary NOT GIVENUNK [place] Insurance:SELF PAY [facility] Number: Effective Repository Date:2018-05-20 05/15/2018 REJI [id number] Primary Arcenio LeeDOB: [place] Insurance:MEDICAL [id number] Medical Center [address]Uxq: (330) Number: Repository [phone] () [id number] Date:8879-95-41ST [address] [address]NW: 05/15/2018 Secondary NOT GIVENUNK [place] Insurance:SELF PAY [facility] Number: Effective Repository Date:2018-05-15 03/14/2018 REJI Saab [id number] Primary Arcenio LeeDOB: [place] Insurance:MEDICAL [id number] Medical Center [address]Ked: (330) Number: Repository [phone] () [id number] Date:7966-99-83LJ [address] [place] [id number]: 03/14/2018 Secondary NOT GIVENUNK [place] Insurance:SELF PAY [facility] Number: Effective Repository Date:2018-03-14 01/28/2018 REJI Saab [id number] Primary Arcenio TurnerB: [place] Insurance:MEDICAL [id number] Medical Center [address]Ocm: (330) Number: Repository [phone] () [id number] Date:9412-55-74DX [place] [id number]: 01/28/2018 Secondary NOT GIVENUNK [place] Insurance:SELF PAY [facility] Number: Effective Repository Date:2018-01-28 01/04/2018 REJI Saab [id number] Primary Arcenio LeeDOB: [place] Insurance:MEDICAL [id number] Medical Center [address]Emd: (330) Number: Repository [phone] () [id number] Date:0665-21-83TW [place] [id number]: 01/04/2018 Secondary NOT GIVENUNK [place] Insurance:SELF PAY [facility] Number: Effective Repository Date:2017-12-25 01/04/2018 REJI [id number] Primary Arcenio TurnerB: [place] Insurance:MEDICAL [id number] Medical Center [id number]: (330) Number: Repository [phone] () [id number] Date:0538-58-32IS[place] [id number]: 01/04/2018 Secondary NOT GIVENUNK [place] Insurance:SELF PAY [facility] Number: Effective Repository Date:2018-01-04 12/25/2017 REJI [id number] Primary Arcenio TurnerB: [place] Insurance:MEDICAL [id number] Medical Center [id number]: (330) Number: Repository [phone] () [id number] Date:3473-45-46KV [address] [place] [address]CJ: 12/25/2017 Secondary NOT GIVENUNK [place] Insurance:SELF PAY [facility] Number: Effective Repository Date:2017-12-25 12/25/2017 REJI [id number] Primary Arcenio TurnerB: [place] Insurance:MEDICAL [id number] Medical Center [address]Zhz: (330) Number: Repository [phone] () [id number] Date:6544-06-02VZ [address] [place] [phone]: 12/25/2017 Secondary NOT GIVENUNK [place] Insurance:SELF PAY [facility] Number: Effective Repository Date:2017-12-25 10/30/2017 REJI [id number] Primary Arcenio LeeDOB: [place] Insurance:MEDICAL [id number] Medical Center [id number]: (330) Number: Repository [phone] () [id number] Date:2360-45-47FD [address] [address]WJ: 10/30/2017 Secondary NOT GIVENUNK [place] Insurance:SELF PAY [facility] Number: Effective Repository Date:2017-10-30 10/24/2017 REJI [id number] Primary Arcenio TurnerB: [place] Insurance:MEDICAL [id number] Medical Center [address]Glf: (330) Number: Repository [phone] () [id number] Date:2049-55-89GD [address] [place] [phone]: 10/24/2017 Secondary NOT GIVENUNK [place] Insurance:SELF PAY [facility] Number: Effective Repository Date:2017-08-30
== END ==
PROVIDERS: Family Provider Family Medicine; PCP Family Medicine; Referring Provider Internal Medicine Endocrinology, Diabetes & Metabolism; Visit Provider Internal Medicine Endocrinology, Diabetes & Metabolism
DX: M81.0 Age-related osteoporosis without current pathological fracture (principal)
CPT/HCPCS: 36415; 82306; 82523; 82570

== ENCOUNTER → 2018-09-18 09:49 | Outpatient (CLI) | payer OTHER, SELFPAY ==
[2018-09-16 09:26] VITALS: BMI 24.0
--- NOTE | 2018-09-18 09:59 | BD_ITS ---
STUDY: DUAL ENERGY X-RAY ABSORPTIOMETRY / DXA REASON FOR EXAM: Female, 67 years old. The patient is postmenopausal. Loss of height. History of prior kyphoplasty. TECHNIQUE: Bone Mineral Density (BMD) measurements of lumbar spine and bilateral hips were obtained. COMPARISON: Comparison is made with prior study dated July 26, 2016. FINDINGS: Lumbar Spine (L1-L4): g/cm2 (0.999) / T-score (-1.7) / Z-score (0.1) Findings are suggestive of osteopenia with a moderate fracture risk. Left Femur Total: g/cm2 (0.905) / T-score (-0.8) / Z-score (0.5) Left Femoral Neck: g/cm2 (0.857) / T-score (-1.3) / Z-score (0.2) Right Femur Total: g/cm2 (0.871) / T-score (-1.1) / Z-score (0.2) Right Femoral Neck: g/cm2 (0.838) / T-score (-1.4) / Z-score (0.1) The T-Scores on the most recent prior examination were: Lumbar Spine (L1-L4): There has been improvement of bone density since the previous examination. Left Femur Total: which represents a worsening of 1.1%. Right Femur Total: which represents a worsening of 1.0%. BD/Dexa Bone Density Study IMPRESSION: The patient is considered osteopenic as outlined below according to World [employer] (WHO) criteria with a moderate fracture risk. There has been worsening of bone density since the previous examination. Reference Information: The T-score is the number of standard deviations above or below the standard which is normal for young adults at their peak bone mineral density. The World Health Organization (WHO) interprets the T-scores as follows: Above -1 Normal bone density Between -1 and -2.5 Osteopenia Equal to / or below -2.5 Osteoporosis As a practical clinical guideline, osteopenia may be graded as follows: Mild -1 through -1.5 Moderate -1.6 through -2.0 Severe -2.1 through -2.4 The Z-score is the number of standard deviations above or below age-matched controls. A Z-score of less than -1.5 would be considered abnormal. References: 1. NIH Osteoporosis and Related Bone Diseases http://www.osteo.org 2. International Society for Clinical Densitometry http://www.iscd.org 3. National Osteoporosis Foundation http://www.nof.org Electronically Signed: Ganesh Dolan MD at 7:45 EST Tel [phone], Service support ,
== END ==
PROVIDERS: Family Provider Family Medicine; PCP Family Medicine; Referring Provider Internal Medicine Endocrinology, Diabetes & Metabolism; Visit Provider Internal Medicine Endocrinology, Diabetes & Metabolism
DX: M81.0 Age-related osteoporosis without current pathological fracture (principal)
CPT/HCPCS: 77080

== ENCOUNTER → 2018-09-30 06:40 | Outpatient (CLI) | payer OTHER, SELFPAY ==
[2018-09-16 09:26] VITALS: BMI 24.0
--- NOTE | 2018-09-30 10:23 | STRESSREP ---
Stress Test Report Pharmacologic myocardial perfusion stress test. 67-year-old lady with a history of chest pain. Medications: Synthroid, Pravachol, losartan, metoprolol. Resting EKG demonstrates normal sinus rhythm with a rate of 70 bpm and ventricular pacing of 70 bpm resting blood pressure 122/80 mmHg. 0.4 mg of regadenoson was infused per usual protocol followed by rapid intravenous saline flush injection continuous EKG monitoring was performed. The patient maintained sinus rhythm throughout the recording. The maximum heart rate attained was 111 bpm which was 72% of maximum predicted heart rate the maximum workload was 1 metabolic equivalent. At rest there were no ST or T wave changes noted suggest abnormal flow reserve at peak infusion no ST or T wave changes were noted to suggest abnormal flow reserve. The resting blood pressure 122/80 with a final blood pressure 118/76. Myocardial perfusion protocol. 11.1 mCi of technetium 99m sestamibi was injected at rest. 0.4 mg of regadenoson was infused per usual protocol at peak infusion 32.8 mCi of technetium 99m sestamibi was injected stress images were obtained stress and rest images were reconstructed and compared in the short axis vertical long and horizontal long axis. Gated images were also obtained Perfusion SPECT analysis: Review of the stress images demonstrate normal uptake of tracer noted in all areas of the myocardium. The resting images demonstrate normal uptake of tracer noted in all areas of the myocardium. No areas of reversibility are noted suggest ischemia. Conclusion: Normal pharmacologic myocardial perfusion stress test. Preserved ejection fraction.
== END ==
PROVIDERS: Family Provider Family Medicine; PCP Family Medicine; Referring Provider Physician Assistant Medical; Visit Provider Physician Assistant Medical
DX: R07.9 Chest pain, unspecified (principal)
CPT/HCPCS: 78452; 93017; A9500; A4216; J2785

== ENCOUNTER → 2018-12-25 11:19 | Outpatient (CLI) | payer OTHER, SELFPAY ==
[2018-09-16 09:26] VITALS: BMI 24.0
--- NOTE | 2018-12-25 11:23 | RAD_ITS ---
STUDY: X-RAY - THORACIC SPINE REASON FOR EXAM: Female, 68 years old. Back pain. History of fracture of T9. TECHNIQUE: 4 view(s) of the thoracic spine were obtained. COMPARISON: 05/20/2017. FINDINGS: There is an increase in the normal thoracic kyphosis. There is no substantial scoliosis. There again is compression fracture of T9 vertebra with vertebroplasty unchanged since the prior exam. There is extension of the cement posteriorly towards the thecal sac unchanged. There is no demonstrated acute compression fracture deformity. Normal disc space heights. Dual-chamber left pacemaker is seen. RAD/Thoracic Spine 2 Views IMPRESSION: 1. Status post vertebroplasty of T9 as described above unchanged since the prior examination. 2. No new fractures seen. Electronically Signed: Andrew Vidal MD at 9:08 EDT Tel , Service support ,
--- NOTE | 2018-12-25 11:30 | RAD_ITS ---
STUDY: X-RAY - LUMBAR SPINE REASON FOR EXAM: Female, 68 years old. Back pain. History of fracture of T9. TECHNIQUE: 4 view(s) of the lumbar spine were obtained. COMPARISON: None FINDINGS: Normal lumbar lordosis. There is minimal levoscoliosis. There is a normal alignment of the vertebrae. There is multilevel endplate spondylosis of the lumbar vertebrae. Normal disc space heights. There is evidence of previous vertebroplasty of T9. There is otherwise no evidence of acute compression fracture deformity. The soft tissue structures are unremarkable. RAD/Lumbar Spine 2 or 3 Views IMPRESSION: Degenerative changes in the lumbar spine as described above. Vertebroplasty at T9. Electronically Signed: Andrew Vidal MD at 9:05 EDT Tel , Service support ,
== END ==
PROVIDERS: Family Provider Family Medicine; PCP Family Medicine; Referring Provider Anesthesiology Pain Medicine; Visit Provider Anesthesiology Pain Medicine
DX: M54.9 Dorsalgia, unspecified (principal)
CPT/HCPCS: 72070; 72100

== ENCOUNTER → 2019-01-13 11:28 | Outpatient (CLI) | payer OTHER, SELFPAY ==
[2018-12-26 08:59] VITALS: BMI 24.4
[2019-01-13 12:40] LABS: Erythrocyte Sedimentation Rate 13 mm/hr (0-30)
[2019-01-13 12:44] LABS: Absolute Lymphocyte Count 1.79 X10^3/ul (0.83-4.51); Absolute Neutrophil Count 3.4 X10^3/uL (2.0-7.7); Basophil# 0.01 X10^3/uL; Basophil% 0.2 % (0-1); Eosinophil# 0.15 X10^3/uL; Eosinophils% 2.5 % (0-5); Hematocrit 37.8 % (37-47); Hemoglobin 12.1 g/dl (12.0-15.0); Lymphocyte # 1.79 X10^3/ul (4.0); Lymphocyte % 30.1 % (19-41); Mean Corpuscular Volume 93.6 fL (81-99); Mean Platelet Vol. 9.4 fl (6.2-12.0); Monocyte# 0.58 X10^3/uL; Monocyte% 9.8 % (0-10); Neutrophil % 57.2 % (47-70); Platelet Count 225 K/mm3 (150-450); RBC Distribution Width CV 13.6 % (11.6-14.6); RBC Distribution Width SD 46.3 fl (35.1-43.9); Red Blood Count 4.04 M/mm3 (4.2-5.4); White Blood Count 5.9 K/mm3 (4.4-11.0)
[2019-01-13 12:46] LABS: POSITIVE COUNT NO; POSITIVE DIFFERENTIAL NO; POSITIVE MORPHOLOGY NO
[2019-01-13 13:20] LABS: ALB/GLOB Ratio 1.1 RATIO (0.9-2.4); AST(SGOT) 22 U/L (15-37); Alanine Aminotransfer ALT/SGPT 21 U/L (13-56); Albumin, Serum 3.4 g/dL (3.2-5.0); Alkaline Phosphatase 33 U/L (45-117); Anion Gap 2 (5-15); BUN 16 mg/dL (7-18); BUN/Creat Ratio 17.5 RATIO (10-20); Calcium,Total 8.4 mg/dL (8.5-10.1); Chloride 110 mmol/L (98-107); Creatinine, Serum 0.92 mg/dL (0.55-1.02); EST Glomerular Filtration Rate 65 mL/min (>60); Est Glom Filt Rate - Afr Amer 79 mL/min (>60); Globulin 3.2 g/dL (2.2-4.2); Glucose 84 mg/dL (74-106); Magnesium 2.2 mg/dL (1.6-2.6); Potassium 4.5 mmol/L (3.5-5.1); Protein, Total 6.6 g/dL (6.4-8.2); Sodium Level 140 mmol/L (136-145); Thyroid Stim Hormone (TSH) 2.02 uIU/mL (0.358-3.74)
== END ==
PROVIDERS: Family Provider Family Medicine; PCP Family Medicine; Visit Provider Family Medicine
DX: R53.83 Other fatigue (principal); R07.89 Other chest pain
CPT/HCPCS: 36415; 80053; 83735; 84443; 85025; 85652

== ENCOUNTER 2019-01-17 14:00 | Outpatient (RCR) | payer OTHER, SELFPAY ==
[2018-12-26 08:59] VITALS: BMI 24.4
--- NOTE | 2019-01-15 14:02 | HP.PTEVAL ---
Patient's Visit Information REJI GILLESPIE is a 68 year old F referred to Physical Therapy by Michele Palma MD with a diagnosis of cervicalgia, chest wall pain, and fibromyalgia.. Date of Evaluation: 01/15/19 Physical Therapist: Joseline Carter PT, Cert MDT - Visit Plan Frequency: 2x /Week Duration: 4-6 Weeks Plan: AQUATIC THERAPY FOR POSTURE CORRECTION/STRENGTHENING, INSTRUCTION IN APPROPRIATE BODY MECHANICS AND ACTIVITY MODIFICATIONS. PAU UE ROM, STRETCHING AND STRENGTHENING. HEP INSTRUCTION. 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 INVOLVES SIGNIFICANT REPETATIVE BENDING, LIFTING AND TWISTING. PROFESSIONALLY PLAYS PIANO AT [employer] EVERY SUNDAY. PRACTICES [employer] DAILY. Disability: NO. Present symptoms: HEADACHES, NECK PAIN, UPPER BACK PAIN AND PAU SHOULDER PAIN. INTERMITTENT PAU UE PAIN, NUMBNESS AND TINGLING. Present since: CHRONIC WITH RECENT EPISODES OF INCREASED PAIN IN LAST 2-3 WEEKS. Pain Scale: Worst - 7/10Least - 2/10. Currently: 03/03. Commenced as a result of: NO APPARENT REASON. H/O T9 FX FROM A FALL 5 YEARS AGO, REAR ENDED 4 YEARS AGO. Symptoms at onset: UPPER BACK. 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 Better: ICE, REST. Disturbed sleep: YES. Previous history/Previous treatment: SON IN LAW IS A CHIROPRACTOR AND HAS HAD ADJUSTMENTS FOR ABOUT 10 YEARS BUT NOT REGULARLY. MASSAGE ONCE A MONTH. PT A LONG TIME AGO. NO CASS'S IN NECK. T9 COMPRESSION FX FROM FALL - VERTERAL PLASTY AND CASS'S WITH LAST ONE BEING ABOUT A MONTH AGO - UNDER THE CARE OF DR. TORRES. Dizziness: YES. Tinnitis: NO. Nausea: NO. Shortness of Breath: NO. Difficulty Swollowing: NO. Gait: NORMAL. Accidents: REAR ENDED 4 YEARS AGO. Unexplained weight loss: NO. Imaging: STUDY: X-RAY - THORACIC SPINE. REASON FOR EXAM: Female, 68 years old. Back pain. History of fracture. of T9. TECHNIQUE: 4 view(s) of the thoracic spine were obtained. COMPARISON: 05/20/2017. . FINDINGS: There is an increase in the normal thoracic kyphosis. There is no. substantial scoliosis. There again is compression fracture of T9 vertebra. with vertebroplasty unchanged since the prior exam. There is extension of. the cement posteriorly towards the thecal sac unchanged. There is no. demonstrated acute compression fracture deformity. Normal disc space. heights. Dual-chamber left pacemaker is seen. . RAD/Thoracic Spine 2 Views. IMPRESSION: 1. Status post vertebroplasty of T9 as described above unchanged since the. prior examination. 2. No new fractures seen. . PMH/Recent major surgery: *PACEMAKER/DEFIB* FIBROMYALGIA, HYPOTHYROIDISM, HIGH CHOLESTEROL, CHRONIC FATIGUE SYNDROME. OSTEOPOROSIS. OTHER: PATIENT REPORTS THAT THE THING THAT CONCERNS HER THE MOST IS THE NUMBNESS AND TINGLING IN HER ARMS/HANDS AND DROPPING THINGS THAT STARTED ABOUT AUG 2018. LAST WEEK TWO EPISODES OF N&T AND DROPPING THINGS. LIVES WITH . - Objective Sitting Posture/Standing Posture: POOR. INCREASED KYPHOSIS AND FORWARD HEAD. Active Correction of posture: WORSE IN UPPER BACK. Other Observations: INDEP GAIT INTO PT WITHOUT ANY ASSISTIVE DEVICES OR LOB. 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 Sensory deficit: PAU UE LIGHT TOUCH SENSATION INTACT AND SYMMETRICAL. ROM deficit: PAU UE'S WFL. Reflexes: 2/3 PAU UE'S. Dural Signs: POSITIVE PAU UE'S. Cervical Mvmt Loss: Flex: NIL. Pro: NIL. Ext: MOD. Ret: RANI. RSB: RANI. LSB: RANI. R Rot: MOD. L Rot: MOD. CERVICAL ROM TESTING ALL PLANES PROVOKES INCREASED HEAD, UPPER BACK, SHOULDER AND NECK PAIN. Postural strength: FAIR. Palpation: TENDERNESS AND TIGHTNESS THROUGHOUT UPPER BACK, SHOULDERS, AND NECK TO OCCIPUT. - Goals Goal 1:: DECREASE C/O HEAD, NECK, UPPER BACK, SHOULDER AND PAU UE SX'S. Goal 2:: IMPROVE LIFTING, READING, SLEEP, WORK, DRIVING, RECREATIONAL AND PAU UE STRENGTH FUNCTION. Goal 3:: INSTRUCT IN PROPHYLAXIS - Rehabilitation Potential Rehabilitation Potential: Fair - Anticipated Interventions Patient/Client Instruction: Educate patient on: Condition, Plan of Care, Risk Factors, Benefits of Fitness Program For the Purpose of:: To improve self management Therapeutic Exercise to Include: Strength training, Body mechanics, Postural training, In an aquatic setting, Active ROM, Scapular Strength/Stabilization For the Purpose of:: To decrease pain, To increase ROM, To improve muscle performance and motor function, To increase tolerance to activity/condition/position, To improve ability of physical actions for home/community/work/leisure Thank you for the opportunity to evaluate your patient. For Medicare and Medicare HMO plans, please review the plan of care and approve it. It will need to be FAXED BACK to us at [phone] for Medicare purposes. For Medicare only, by signing this I certify the plan of care. Please let me know if there are questions or concerns regarding this plan of care. Physician Signature: Date:
--- NOTE | 2019-02-18 13:28 | HP.PT.NRP ---
HP - Discharge Summary (1) - Patient Information REJI GILLESPIE was seen in my office for initial evaluation on 01/15/19. The following Plan of Care was established for this patient: Initial Frequency: 2x /Week Initial Duration: 4-6 Weeks - Anticipated Interventions Patient/Client Instruction: Educate patient on: Condition, Plan of Care, Risk Factors, Benefits of Fitness Program For the Purpose of:: To improve self management Therapeutic Exercise to Include: Strength training, Body mechanics, Postural training, In an aquatic setting, Active ROM, Scapular Strength/Stabilization For the Purpose of:: To decrease pain, To increase ROM, To improve muscle performance and motor function, To increase tolerance to activity/condition/position, To improve ability of physical actions for home/community/work/leisure This patient was last seen in our office 01/17/19. Pertinent comments regarding their Physical therapy will appear below: This patient has not returned to Physical Therapy and is appropriate to return to MD for further follow-up as needed. At this point I will be discontinuing this patient from physical therapy. I would be happy to see this patient again in the future if found appropriate by the physician. Thank you! Joseline Carter, PT, Cert MDT
== END 2019-01-17 19:00 | disposition home or self-care (01) ==
LOC: PT 14:00
PROVIDERS: Family Provider Family Medicine; PCP Family Medicine; Referring Provider Family Medicine; Visit Provider Family Medicine
DX: M54.2 Cervicalgia (principal); R07.89 Other chest pain; M79.7 Fibromyalgia
CPT/HCPCS: 97162; 97530

== ENCOUNTER → 2019-03-05 13:45 | Outpatient (CLI) | payer MEDICARE, SELFPAY ==
[2018-12-26 08:59] VITALS: BMI 24.4
[2019-03-05 16:01] LABS: ALB/GLOB Ratio 1.1 RATIO (0.9-2.4); AST(SGOT) 24 U/L (15-37); Alanine Aminotransfer ALT/SGPT 26 U/L (13-56); Albumin, Serum 3.8 g/dL (3.2-5.0); Alkaline Phosphatase 38 U/L (45-117); Anion Gap 5 (5-15); BUN 22 mg/dL (7-18); BUN/Creat Ratio 20.8 RATIO (10-20); Calcium,Total 9.6 mg/dL (8.5-10.1); Chloride 104 mmol/L (98-107); Creatinine, Serum 1.06 mg/dL (0.55-1.02); EST Glomerular Filtration Rate 55 mL/min (>60); Est Glom Filt Rate - Afr Amer 66 mL/min (>60); Free T3 2.8 pg/mL (2.18-3.98); Globulin 3.5 g/dL (2.2-4.2); Glucose 99 mg/dL (74-106); Protein, Total 7.3 g/dL (6.4-8.2); Sodium Level 137 mmol/L (136-145); T4 Free Direct 1.05 ng/dL (0.76-1.46); Thyroid Stim Hormone (TSH) 1.84 uIU/mL (0.358-3.74)
== END ==
PROVIDERS: Family Provider Family Medicine; PCP Family Medicine; Referring Provider Internal Medicine Endocrinology, Diabetes & Metabolism; Visit Provider Internal Medicine Endocrinology, Diabetes & Metabolism
DX: E03.9 Hypothyroidism, unspecified (principal)
CPT/HCPCS: 36415; 80053; 84439; 84443; 84481

== ENCOUNTER → 2019-05-29 13:21 | Outpatient (CLI) | payer MEDICARE, SELFPAY ==
[2018-12-26 08:59] VITALS: BMI 24.4
[2019-05-29 13:34] VITALS: BP 114/53; PULSE 78; RESP 16; TEMP 36.2; O2SAT 96; BMI 24.7
[2019-05-29] MEDS: Zoledronic Acid 5 MG 100 ML 300 MG IV (13:58)
== END ==
PROVIDERS: Family Provider Family Medicine; PCP Family Medicine; Referring Provider Internal Medicine Endocrinology, Diabetes & Metabolism; Visit Provider Internal Medicine Endocrinology, Diabetes & Metabolism
DX: M81.0 Age-related osteoporosis without current pathological fracture (principal)
CPT/HCPCS: 96365; A4216; J3489

== ENCOUNTER → 2019-06-24 10:04 | Outpatient (CLI) | payer MEDICARE, SELFPAY ==
[2019-05-29 13:34] VITALS: BMI 24.7
[2019-06-24 12:36] LABS: Absolute Lymphocyte Count 1.78 X10^3/uL (0.83-4.51); Absolute Neutrophil Count 3.6 X10^3/uL (2.0-7.7); Basophil# 0.03 X10^3/uL; Basophil% 0.5 % (0-1); Eosinophil# 0.15 X10^3/uL; Eosinophils% 2.4 % (0-5); Hematocrit 39.2 % (37-47); Hemoglobin 12.5 g/dL (12.0-15.0); Lymphocyte # 1.78 X10^3/ul (4.0); Lymphocyte % 28.7 % (19-41); Mean Corp Hgb Conc 31.9 g/dL (32-36); Mean Corpuscular Volume 97.3 fL (81-99); Mean Platelet Vol. 9.7 fl (6.2-12.0); Monocyte# 0.64 X10^3/uL; Monocyte% 10.3 % (0-10); NRBC Flagged by Analyzer 0 % (0-5); Neutrophil # 3.59 X10^3/uL (2.7-7.7); Neutrophil % 57.8 % (47-70); Platelet Count 245 K/mm3 (150-450); RBC Distribution Width CV 13.8 % (11.6-14.6); RBC Distribution Width SD 49.8 fl (35.1-43.9); Red Blood Count 4.03 M/mm3 (4.2-5.4); White Blood Count 6.2 K/mm3 (4.4-11.0)
== END ==
PROVIDERS: Family Provider Family Medicine; PCP Family Medicine; Referring Provider Internal Medicine Endocrinology, Diabetes & Metabolism; Visit Provider Internal Medicine Endocrinology, Diabetes & Metabolism
DX: E03.9 Hypothyroidism, unspecified (principal)
CPT/HCPCS: 36415; 85025

== ENCOUNTER → 2019-07-04 14:38 | Outpatient (CLI) | payer MEDICARE, SELFPAY ==
[2019-05-29 13:34] VITALS: BMI 24.7
--- NOTE | 2019-07-04 14:43 | RAD_ITS ---
STUDY: X-RAY - MANDIBLE (COMPLETE) REASON FOR EXAM: Female, 68 years old. Mandible pain after gardening and new medication TECHNIQUE: 4 view(s) of the mandible were obtained. COMPARISON: None. FINDINGS: There is demineralization of the mandible. Normal visualized right temporomandibular joint. Normal visualized left temporomandibular joint. The remaining visualized osseous structures are normal. The soft tissue structures are unremarkable. RAD/Mandible Min 4 Views IMPRESSION: No fracture or destructive bony process. No osteonecrosis identified. Electronically Signed: Kong Bull MD ([place]) at 15:53 EDT , Service support ,
[2019-07-04 17:46] LABS: Erythrocyte Sedimentation Rate 8 mm/hr (0-30)
[2019-07-04 18:04] LABS: CRP < 2.90 mg/L (0.0-3.0); Rheumatoid Factor < 10.0 IU/mL (<15)
[2019-07-07 17:36] LABS: ANTINUCLEAR ANTIBODIES DIRECT Negative (Negative)
== END ==
PROVIDERS: Family Provider Family Medicine; PCP Family Medicine; Referring Provider Internal Medicine Endocrinology, Diabetes & Metabolism; Visit Provider Internal Medicine Endocrinology, Diabetes & Metabolism
DX: M79.10 Myalgia, unspecified site (principal)
CPT/HCPCS: 36415; 70110; 85652; 86038; 86140; 86431

== ENCOUNTER → 2019-08-22 13:14 | Outpatient (CLI) | payer MEDICARE, SELFPAY ==
[2019-05-29 13:34] VITALS: BMI 24.7
--- NOTE | 2019-08-22 13:27 | BI_ITS ---
MAMMOGRAPHY - BILATERAL SCREENING REASON FOR EXAM: Female, 68 years old. Routine annual screening examination. PERTINENT HISTORY: Non-contributory. TECHNIQUE: Digital bilateral breast noé (3D mammographic acquisition) in the CC and MLO projections. 2-D mediolateral oblique (MLO) and craniocaudad (CC) views of both breasts were obtained. CAD: Full Field Digital Mammography with Computer Added Detection was performed. COMPARISON: Comparison is made with prior examination dated August 13, 2018 and June 08, 2017. FINDINGS: Breast Composition: The breasts are heterogeneously dense, which may obscure small masses. There are no dominant masses or suspicious calcifications. Stable asymmetry of breast tissue were more breast tissue is seen in the right breast as compared to the left side. This is unchanged. Once again, a battery pack of a pacemaker is seen in the left axillary region. No other significant abnormalities are identified. There has been no significant change since the prior study. BI/SCREEN MAMM (CAD) W/NOÉ BILAT IMPRESSION: Stable bilateral screening mammogram. Yearly follow-up mammogram recommended. (A) ASSESSMENT CATEGORY: BIRADS Category 2: Benign. A letter regarding these results will be sent to the patient by the facility within 30 days. Approximately 10% of breast cancers are not detected by mammography. A normal mammogram should not delay biopsy of a clinically suspicious abnormality. [id number] Electronically Signed: Ganesh Dolan, at 14:24 EST , Service support ,
== END ==
PROVIDERS: Family Provider Family Medicine; PCP Family Medicine; Referring Provider Family Medicine; Visit Provider Family Medicine
DX: Z12.31 Encounter for screening mammogram for malignant neoplasm of breast (principal)
CPT/HCPCS: 77063; 77067

== ENCOUNTER → 2020-02-04 11:57 | Outpatient (CLI) | payer MEDICARE, SELFPAY ==
[2019-05-29 13:34] VITALS: BMI 24.7
[2020-02-04 15:41] LABS: Vitamin D,25 Hydroxy 70.5 ng/mL
[2020-02-04 16:05] LABS: AST(SGOT) 23 U/L (15-37); Alanine Aminotransfer ALT/SGPT 26 U/L (13-56); Albumin, Serum 3.8 g/dL (3.2-5.0); Alkaline Phosphatase 39 U/L (45-117); Anion Gap 5 (5-15); BUN 17 mg/dL (7-18); BUN/Creat Ratio 16.7 RATIO (10-20); Calcium,Total 9.4 mg/dL (8.5-10.1); Chloride 107 mmol/L (98-107); Creatinine, Serum 1.02 mg/dL (0.55-1.02); EST Glomerular Filtration Rate 57 mL/min (>60); Est Glom Filt Rate - Afr Amer 69 mL/min (>60); Globulin 3.7 g/dL (2.2-4.2); Glucose 86 mg/dL (74-106); Potassium 4.3 mmol/L (3.5-5.1); Protein, Total 7.5 g/dL (6.4-8.2); Sodium Level 140 mmol/L (136-145); T4 Free Direct 1.02 ng/dL (0.76-1.46); Thyroid Stim Hormone (TSH) 2.52 uIU/mL (0.358-3.74)
== END ==
PROVIDERS: PCP Family Medicine; Referring Provider Internal Medicine Endocrinology, Diabetes & Metabolism; Visit Provider Internal Medicine Endocrinology, Diabetes & Metabolism
DX: E03.9 Hypothyroidism, unspecified (principal); E55.9 Vitamin D deficiency, unspecified; M81.0 Age-related osteoporosis without current pathological fracture
CPT/HCPCS: 36415; 80053; 82306; 84439; 84443

== ENCOUNTER → 2020-02-20 08:31 | Outpatient (CLI) | payer MEDICARE, SELFPAY ==
[2019-05-29 13:34] VITALS: BMI 24.7
--- NOTE | 2020-02-20 08:34 | CT_ITS ---
STUDY: CT LUMBAR SPINE WITHOUT CONTRAST REASON FOR EXAM: Female, 69 years old. SPINE AND LEG PAIN X 6 MONTHS RADIATION DOSAGE (If Supplied By Facility): CTDIvol = ( 14.17 ) mGy, DLP = ( 376.22 ) mGycm TECHNIQUE: The patient was scanned in a multi detector CT scanner. High resolution transaxial imaging was performed. Images were obtained from L1 to S1 vertebral level. Sagittal and coronal images were reconstructed. Individualized dose optimization techniques were used for this CT. COMPARISON: None FINDINGS: Normal lumbar lordosis. There is no substantial scoliosis. Normal vertebrae of the lumbar spine. L1-2: Mild degree of disc space narrowing. Anterior spondylosis. L2-3: Mild degree of disc space narrowing and anterior spondylosis. Mild degree of facet joint hypertrophy. L3-4: Mild degree of disc space narrowing and anterior spondylosis. Facet joint osteoarthritis and hypertrophy. Mild degree of diffuse posterior disc bulge. Mild degree of bilateral neural foraminal stenosis. L4-5: Normal endplates. Normal disc height and morphology. Normal bilateral facet joints. Normal central canal and bilateral lateral recesses. Normal bilateral intervertebral neural foramina. L5-S1: Normal endplates. Normal disc height and morphology. Normal bilateral facet joints. Normal central canal and bilateral lateral recesses. Normal bilateral intervertebral neural foramina. Bilateral renal cysts. Atherosclerotic calcification of the abdominal aorta. CT/Spine Lumbar without Contrast IMPRESSION: Multilevel degenerative changes, as described above. Electronically Signed: Ganesh Dolan, at 10:15 EDT , Service support ,
== END ==
PROVIDERS: PCP Family Medicine; Referring Provider Anesthesiology Pain Medicine; Visit Provider Anesthesiology Pain Medicine
DX: M54.9 Dorsalgia, unspecified (principal); M79.606 Pain in leg, unspecified
CPT/HCPCS: 72131

== ENCOUNTER → 2020-02-21 07:35 | Outpatient (CLI) | payer MEDICARE, SELFPAY ==
[2019-05-29 13:34] VITALS: BMI 24.7
[2020-02-21 08:50] LABS: Anion Gap 7 (5-15); BUN 18 mg/dL (7-18); BUN/Creat Ratio 19.6 RATIO (10-20); Calcium,Total 9.4 mg/dL (8.5-10.1); Chloride 104 mmol/L (98-107); Creatinine, Serum 0.92 mg/dL (0.55-1.02); EST Glomerular Filtration Rate 65 mL/min (>60); Est Glom Filt Rate - Afr Amer 78 mL/min (>60); Glucose 115 mg/dL (74-106); Sodium Level 138 mmol/L (136-145)
[2020-02-21 11:45] LABS: Hemoglobin A1c 5.5 % (3.8-5.6)
== END ==
PROVIDERS: PCP Family Medicine; Visit Provider Internal Medicine Endocrinology, Diabetes & Metabolism
DX: E03.9 Hypothyroidism, unspecified (principal); E55.9 Vitamin D deficiency, unspecified; R63.5 Abnormal weight gain; M81.0 Age-related osteoporosis without current pathological fracture; Z79.899 Other long term (current) drug therapy
CPT/HCPCS: 36415; 80048; 82533; 83036

== ENCOUNTER 2020-07-19 13:00 | Outpatient (RCR) | payer MEDICARE, SELFPAY ==
[2020-03-05 14:54] VITALS: BMI 203.3
--- NOTE | 2020-06-21 11:00 | HP.OTEVAL ---
Patient's Visit Information REJI GILLESPIE is a 69 year old F, referred to Occupational Therapy by Dr. Michele Palma MD, with a diagnosis of BLE edema. Date of Evaluation: 06/21/20 Occupational Therapist: Denise Parr, ABDELRAHMANR/Katiana, CHT - Subjective This 69 year old female was seen for OT eval with dx of LE edema. pt states she has had swelling on and off for 4-5 years but after recent flight and wore her compression socks. pt states she does have compression socks but she does not like to wear them during the summer and does not know what compression class they are. Pt states swelling is down in the AM. Pt states her legs do get painful but she is not sure if is from swelling or her Fibro. - Pain Bilateral LE 2 Pain Intensity Range: 0, 2 - Lymphedema (Circumferential Measure) Mid-foot: right 20.5cm left 20.5cm Ankle: right 25cm left 26cm Lower calf: right 30.5cm left 31cm Largest calf: right 38cm left 41cm Below knee: right 37cm left 38cm - Lower Limb Functional Index Lower Extremity Functional Score: 56 - Goals Demonstrate adequate knowledge of self-massage by 2nd week: Yes Demonstrate adequate knowledge skin care/prec by 2nd week: Yes Demonstrate adequate knowledge therapeutic exercises by d/c: Yes Select approp compression garment w/donning/care/wear by d/c: Yes Voice need to replace compression garment every 4-6mo by dc: Yes - Rehabilitation General Assessment: PT demo with edema in bilateral LE and at times some pain and discomfort. Pt is limited with travel and ambulation at this time due to her swelling. Pt would benefit from skilled OT services 1x week for 3 fweeks to ensure pt has recived appropriate compression socks and can lowell. wearing them. Today therapist ed. pt on compression socks 20-30 mmHg, donning/doffing of garment, skin care and ex. pt demo understanding of ex. and verbalized understanding of getting compression socks to assist with her edema mtg. Rehabilitation Potential: Fair - Anticipated Interventions Education re Diagnosis, Manual Lymph Drainage, Education re Life-long lymphedema Management, Education re Skin Care and Precautions, Education re Self Massage Techniques, Education re Correct Donning Tech,Care&Wearing Sched Comp Garments - Visit Plan Frequency: 1x/Week Duration: 3 Weeks TEXT: Thank you for the opportunity to evaluate your patient. For Medicare and Medicare HMO plans, please review the plan of care and approve it. It will need to be FAXED BACK to us at [phone] for Medicare purposes. Please let me know if there are questions or concerns regarding this plan of care. Physician Signature: Date:
--- NOTE | 2020-08-24 12:44 | HP.OTDCSUM ---
It has been my pleasure to treat REJI GILLESPIE under orders from Dr. Michele Palma MD, for the diagnosis of BLE edema for a total of 2 visit(s). Please see the following information for a summary of their discharge status. % Improvement: 80 Objective/Function: right ankle 23cm 23cm. right lc 32 left 33cm. right 41cm left 41. below knee 39 left 40cm Patient Goals: Learn how to Manage Lymphedema, Learn how to Apply Compression Stockings Demonstrate adequate knowledge of self-massage by 2nd week: Yes Demonstrate adequate knowledge skin care/prec by 2nd week: Yes Demonstrate adequate knowledge therapeutic exercises by d/c: Yes Select approp compression garment w/donning/care/wear by d/c: Yes Voice need to replace compression garment every 4-6mo by dc: Yes Plan: D/C Discharge Comments: pt was seen for 2 visits to ed. pt on compression hose use, exercise and skin care- pt demo. understanding If there are questions or concerns regarding this patient's occupational therapy, please fell free to call me at [phone]. Thank you for the referral of this patient. Sincerely, Denise Parr, OTR/L, CHT
== END 2020-07-19 19:00 | disposition home or self-care (01) ==
LOC: OT 13:00
PROVIDERS: PCP Family Medicine; Referring Provider Family Medicine; Visit Provider Family Medicine
DX: I89.0 Lymphedema, not elsewhere classified (principal); M79.7 Fibromyalgia
CPT/HCPCS: 97165; 97167; 97530

== ENCOUNTER → 2020-07-22 09:04 | Outpatient (CLI) | payer MEDICARE, SELFPAY ==
[2020-03-05 14:54] VITALS: BMI 203.3
[2020-07-22 10:04] LABS: Absolute Lymphocyte Count 2.04 X10^3/uL (0.83-4.51); Absolute Neutrophil Count 6.8 X10^3/uL (2.0-7.7); Basophil# 0.04 X10^3/uL; Basophil% 0.4 % (0-1); Eosinophil# 0.13 X10^3/uL; Eosinophils% 1.3 % (0-5); Hemoglobin 13.4 g/dL (12.0-15.0); Lymphocyte # 2.04 X10^3/ul (4.0); Lymphocyte % 20.5 % (19-41); Mean Corp Hgb Conc 31.9 g/dL (32-36); Mean Corpuscular Hgb 30.5 pg (27.0-32.0); Mean Corpuscular Volume 95.7 fL (81-99); Mean Platelet Vol. 9.7 fl (6.2-12.0); NRBC Flagged by Analyzer 0 % (0-5); Neutrophil # 6.76 X10^3/uL (2.7-7.7); Platelet Count 293 K/mm3 (150-450); RBC Distribution Width CV 12.6 % (11.6-14.6); RBC Distribution Width SD 44.2 fl (35.1-43.9); Red Blood Count 4.39 M/mm3 (4.2-5.4)
[2020-07-22 10:21] LABS: Vitamin D,25 Hydroxy 56.8 ng/mL
[2020-07-22 10:33] LABS: ALB/GLOB Ratio 0.9 RATIO (0.9-2.4); AST(SGOT) 16 U/L (15-37); Alanine Aminotransfer ALT/SGPT 27 U/L (13-56); Albumin, Serum 3.6 g/dL (3.2-5.0); Alkaline Phosphatase 43 U/L (45-117); Anion Gap 6 (5-15); BUN 24 mg/dL (7-18); BUN/Creat Ratio 23.8 RATIO (10-20); Calcium,Total 9.1 mg/dL (8.5-10.1); Chloride 108 mmol/L (98-107); Creatinine, Serum 1.01 mg/dL (0.55-1.02); EST Glomerular Filtration Rate 58 mL/min (>60); Est Glom Filt Rate - Afr Amer 70 mL/min (>60); Globulin 3.9 g/dL (2.2-4.2); Glucose 80 mg/dL (74-106); Magnesium 2.4 mg/dL (1.6-2.6); Potassium 4.2 mmol/L (3.5-5.1); Protein, Total 7.5 g/dL (6.4-8.2); Sodium Level 139 mmol/L (136-145); T4 Free Direct 1.26 ng/dL (0.76-1.46); Thyroid Stim Hormone (TSH) 4.13 uIU/mL (0.358-3.74)
[2020-07-22 10:34] LABS: LDH 192 U/L (84-246)
== END ==
PROVIDERS: Internal Medicine Endocrinology, Diabetes & Metabolism; PCP Family Medicine; Referring Provider Family Medicine; Visit Provider Family Medicine
DX: I42.8 Other cardiomyopathies (principal); R63.5 Abnormal weight gain; E55.9 Vitamin D deficiency, unspecified; E03.9 Hypothyroidism, unspecified; M81.0 Age-related osteoporosis without current pathological fracture
CPT/HCPCS: 36415; 80053; 82306; 83615; 83735; 84439; 84443; 85025

== ENCOUNTER → 2020-09-21 15:44 | Outpatient (CLI) | payer MEDICARE, SELFPAY ==
[2020-03-05 14:54] VITALS: BMI 203.3
--- NOTE | 2020-09-21 15:46 | BI_ITS ---
MAMMOGRAPHY - BILATERAL SCREENING REASON FOR EXAM: Female, 69 years old. Routine annual screening examination. PERTINENT HISTORY: NO FAM HX. GAINED 10# TECHNIQUE: Digital bilateral breast noé (3D mammographic acquisition) in the CC and MLO projections. 2-D mediolateral oblique (MLO) and craniocaudad (CC) views of both breasts were obtained. CAD: Full Field Digital Mammography with Computer Added Detection was performed. COMPARISON: 08/22/2019 and 08/13/2018 FINDINGS: Breast Composition: The breasts are heterogeneously dense, which may obscure small masses. There are no dominant masses or suspicious calcifications. No other significant abnormalities are identified. BI/SCREEN MAMM (CAD) W/NOÉ BILAT IMPRESSION: Stable bilateral screening mammogram. Yearly follow-up mammogram recommended. (A) ASSESSMENT CATEGORY: BIRADS Category 2: Benign. A letter regarding these results will be sent to the patient by the facility within 30 days. Approximately 10% of breast cancers are not detected by mammography. A normal mammogram should not delay biopsy of a clinically suspicious abnormality. [id number] Electronically Signed: Rayna Guajardo, at 13:57 EST Tel , Service support ,
--- NOTE | 2020-09-21 15:48 | BD_ITS ---
STUDY: DUAL ENERGY X-RAY ABSORPTIOMETRY / DXA REASON FOR EXAM: Female, 69 years old. 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 COMPARISON: Comparison is made with prior examination dated 09/18/2018. FINDINGS: Lumbar Spine (L1-L4): g/cm2 (0.987) / T-score (-1.8) / Z-score (-0.1) Findings are suggestive of osteopenia with a moderate fracture risk. There is evidence of a prior vertebroplasty of a lower dorsal vertebrae with loss of height. Left Femur Total: g/cm2 (0.892) / T-score (-0.9) / Z-score (0.5) Left Femoral Neck: g/cm2 (0.836) / T-score (-1.5) / Z-score (0.2) Right Femur Total: g/cm2 (0.846) / T-score (-1.3) / Z-score (0.1) Right Femoral Neck: g/cm2 (0.837) / T-score (-1.4) / Z-score (0.2) The T-Scores on the most recent prior examination were: Lumbar Spine (L1-L4): There has been worsening of bone density since the previous examination. Left Femur Total: which represents a worsening of 1.4%. Right Femur Total: which represents a worsening of 2.9%. BD/Dexa Bone Density Study IMPRESSION: The patient is considered osteopenic as outlined below according to World Gag[employer] Organization (WHO) criteria with a moderate fracture risk. There has been worsening of bone density since the previous examination. Reference Information: The T-score is the number of standard deviations above or below the standard which is normal for young adults at their peak bone mineral density. The World Health Organization (WHO) interprets the T-scores as follows: Above -1 Normal bone density Between -1 and -2.5 Osteopenia Equal to / or below -2.5 Osteoporosis As a practical clinical guideline, osteopenia may be graded as follows: Mild -1 through -1.5 Moderate -1.6 through -2.0 Severe -2.1 through -2.4 The Z-score is the number of standard deviations above or below age-matched controls. A Z-score of less than -1.5 would be considered abnormal. References: 1. NIH Osteoporosis and Related Bone Diseases www osteo.org 2. International Society for Clinical Densitometry www iscd.org 3. National Osteoporosis Foundation www nof.org Electronically Signed: Ganesh Dolan, at 15:21 EST , Service support ,
== END ==
PROVIDERS: PCP Family Medicine; Referring Provider Internal Medicine Endocrinology, Diabetes & Metabolism; Visit Provider Family Medicine
DX: Z12.31 Encounter for screening mammogram for malignant neoplasm of breast (principal); Z78.0 Asymptomatic menopausal state
CPT/HCPCS: 77063; 77067; 77080

== ENCOUNTER → 2020-10-05 13:43 | Outpatient (CLI) | payer MEDICARE, SELFPAY ==
[2020-03-05 14:54] VITALS: BMI 203.3
--- NOTE | 2020-10-05 13:46 | RAD_ITS ---
STUDY: X-RAY - MANDIBLE (COMPLETE) REASON FOR EXAM: Female, 69 years old. Pt has been having jaw pain, no injury -- pt has been given Reclast and Prolia for osteoporosis TECHNIQUE: 6 view(s) of the mandible were obtained. COMPARISON: None. FINDINGS: There is demineralization of the mandible. Normal visualized right temporomandibular joint. Normal visualized left temporomandibular joint. The remaining visualized osseous structures are normal. The soft tissue structures are unremarkable. RAD/Mandible Min 4 Views IMPRESSION: Bony demineralization. Allowing for technique there is no visualized temporomandibular subluxation. Only a closed mouth views were obtained. No visualized fracture. Can consider open and closed mouth views. In addition a Panorex may be helpful. Electronically Signed: Jennifer Wise MD at 7:52 EST Tel , Service support ,
== END ==
PROVIDERS: PCP Family Medicine; Referring Provider Internal Medicine Endocrinology, Diabetes & Metabolism; Visit Provider Internal Medicine Endocrinology, Diabetes & Metabolism
DX: R68.84 Jaw pain (principal); M81.0 Age-related osteoporosis without current pathological fracture
CPT/HCPCS: 70110

== ENCOUNTER → 2021-02-07 08:45 | Outpatient (CLI) | payer MEDICARE, SELFPAY ==
[2020-03-05 14:54] VITALS: BMI 203.3
[2021-02-07 10:42] LABS: Hemoglobin A1c 5.5 % (3.8-5.6)
[2021-02-07 10:52] LABS: Anion Gap 3 (5-15); BUN 16 mg/dL (7-18); BUN/Creat Ratio 17.2 RATIO (10-20); Calcium,Total 9.5 mg/dL (8.5-10.1); Chloride 104 mmol/L (98-107); Creatinine, Serum 0.93 mg/dL (0.55-1.02); EST Glomerular Filtration Rate 64 mL/min (>60); Est Glom Filt Rate - Afr Amer 77 mL/min (>60); Glucose 98 mg/dL (74-106); Potassium 4.4 mmol/L (3.5-5.1); Sodium Level 137 mmol/L (136-145)
== END ==
PROVIDERS: PCP Family Medicine; Referring Provider Internal Medicine Endocrinology, Diabetes & Metabolism; Visit Provider Internal Medicine Endocrinology, Diabetes & Metabolism
DX: E03.9 Hypothyroidism, unspecified (principal); M81.0 Age-related osteoporosis without current pathological fracture; E55.9 Vitamin D deficiency, unspecified; R63.5 Abnormal weight gain
CPT/HCPCS: 36415; 80048; 82533; 83036

== ENCOUNTER → 2021-02-10 14:19 | Outpatient (CLI) | payer MEDICARE, SELFPAY ==
[2021-02-08 11:58] VITALS: BMI 26.5
[2021-02-10 17:53] LABS: Free T3 2.7 pg/mL (2.18-3.98); Thyroid Stim Hormone (TSH) 1.23 uIU/mL (0.358-3.74)
== END ==
PROVIDERS: PCP Family Medicine; Referring Provider Internal Medicine Endocrinology, Diabetes & Metabolism; Visit Provider Internal Medicine Endocrinology, Diabetes & Metabolism
DX: E03.9 Hypothyroidism, unspecified (principal); M81.0 Age-related osteoporosis without current pathological fracture; E55.9 Vitamin D deficiency, unspecified; R63.5 Abnormal weight gain
CPT/HCPCS: 36415; 84439; 84443; 84481

== ENCOUNTER 2021-03-08 07:49 | Day surgery (SDC) | payer MEDICARE, SELFPAY ==
[2021-02-23 13:23] VITALS: BMI 26.5
[2021-03-08] VITALS (7 sets, daily range): BP systolic 86–121; BP diastolic 46–64; PULSE 70–79; RESP 14–16; TEMP 36.1–36.6; O2SAT 95–100; BMI 29.3
[2021-03-08] MEDS: Lactated Ringers 1,000 ML 100 ML IV (08:47)
--- NOTE | 2021-03-08 09:09 | HP.PCM_ITS ---
History and Physical Date of Admission: 03/08/21 Intake Vital Signs 02/23/21 13:23 BMI 26.5 Intake Visit Reasons: two wk f/u hemorrhoid Chief Complaint: recheck hemorrhoids Payroll Specialist Required: No Is patient in pain?: No Allergies clindamycin Allergy (Severe, Verified 02/23/21 13:23) Hives indomethacin [From Indocin] Allergy (Severe, Verified 02/23/21 13:23) hives,swelling amoxicillin [From Augmentin] Adverse Reaction (Severe, Verified 02/23/21 13:23) Nausea/Vom/Diarrhea, severe GI upset carvedilol [Coreg] Adverse Reaction (Severe, Verified 02/23/21 13:23) Shortness of breath, myalgias clavulanic acid [From Augmentin] Adverse Reaction (Severe, Verified 02/23/21 13:23) Nausea/Vom/Diarrhea/severe GI upset diclofenac Adverse Reaction (Severe, Verified 02/23/21 13:23) Severe GI upset erythromycin base Adverse Reaction (Severe, Verified 02/23/21 13:23) Nausea/Vom/Diarrhea, severe GI upset fentanyl Adverse Reaction (Severe, Verified 02/23/21 13:23) Locked jaw, confusion meloxicam [From Mobic] Adverse Reaction (Severe, Verified 02/23/21 13:23) Hallucinations Sulfa (Sulfonamide Antibiotics) Adverse Reaction (Severe, Verified 02/23/21 13:23) Severe Itching sulfamethoxazole [From Bactrim] Adverse Reaction (Severe, Verified 02/23/21 13:23) Severe Itching trimethoprim [From Bactrim] Adverse Reaction (Severe, Verified 02/23/21 13:23) severe itching venlafaxine [From Effexor] Adverse Reaction (Severe, Verified 02/23/21 13:23) Racing pulse zolpidem [From Ambien] Adverse Reaction (Severe, Verified 02/23/21 13:23) Agitation baclofen Adverse Reaction (Intermediate, Verified 02/23/21 13:23) crawling skin cefdinir [From Omnicef] Adverse Reaction (Intermediate, Verified 02/23/21 13:23) Itching duloxetine [From Cymbalta] Adverse Reaction (Intermediate, Verified 02/23/21 13:23) Nausea lisinopril Adverse Reaction (Intermediate, Verified 02/23/21 13:23) cough, nausea, abdominal pain lovastatin Adverse Reaction (Intermediate, Verified 02/23/21 13:23) Myalgias pregabalin [From Lyrica] Adverse Reaction (Intermediate, Verified 02/23/21 13:23) Nausea, crawling skin tizanidine Adverse Reaction (Intermediate, Verified 02/23/21 13:23) crawling skin trazodone [From Desyrel] Adverse Reaction (Verified 02/23/21 13:23) Hallucination Medications pravastatin 20 mg PO DAILY 05/27/16 [History Confirmed 02/23/21] ascorbic acid-ascorbate calc 100 mg PO DAILY 06/29/16 [History Confirmed 02/23/21] calcium citrate 250 mg PO DAILY 06/29/16 [History Confirmed 02/23/21] coenzyme Q10 10 mg PO DAILY 06/29/16 [History Confirmed 02/23/21] famotidine 20 mg PO DAILY PRN 06/29/16 [History Confirmed 02/23/21] folic acid-B complex,C no.17 5 mg PO DAILY 06/29/16 [History Confirmed 02/23/21] magnesium oxide 400 mg PO BID 06/29/16 [History Confirmed 02/23/21] multivitamin 1 tab PO QDAY 12/21/17 [History Confirmed 02/23/21] metoprolol tartrate 25 mg tablet 25 mg PO BID #180 tab 03/01/20 [Rx Confirmed 02/23/21] ergocalciferol (vitamin D2) 1,250 mcg (50,000 unit) capsule 50,000 unit PO Q2W cap 03/05/20 [History Confirmed 02/23/21] estradiol 1 g VAGINAL .H0DSAVI g 03/05/20 [History Confirmed 02/23/21] fexofenadine 180 mg tablet 180 mg PO DAILY PRN 03/05/20 [History Confirmed 02/23/21] levothyroxine 25 mcg tablet 37.5 mcg PO DAILY tab 03/05/20 [History Confirmed 02/23/21] melatonin 1 mg tablet 2 mg PO .COMPLEX tab 03/05/20 [History Confirmed 02/23/21] nitrofurantoin monohydrate/macrocrystals 100 mg capsule 100 mg PO DAILY PRN 03/05/20 [History Confirmed 02/23/21] losartan 25 mg tablet 25 mg PO QDAY #90 tab 04/08/20 [Rx Confirmed 02/23/21] Is last menstrual period known: No Post menopausal: Yes Patient : No PFSH Medical History Biventricular ICD (implantable cardioverter-defibrillator) in place (02/14/17) Essential (primary) hypertension Fibromyalgia GERD (gastroesophageal reflux disease) Hyperlipidemia Hypothyroidism Left bundle-branch block Nonischemic cardiomyopathy Surgical History History of left heart catheterization (06/30/16) S/P bladder repair S/P hysterectomy S/P vein stripping Family History Other CAD (coronary artery disease) CVA (cerebral vascular accident) Myocardial infarction Social History Smoking Status: Never smoker HPI HPI HPI: REJI GILLESPIE, is a 70 F who presents to the office today for follow-up for hemorrhoids and constipation. The patient was started on MiraLAX every other d ay and stool softener. She reports she has been having several bowel movements per day and still feels fullness and she is not able to fully empty. Patient is also having black tarry stools but she has not been having bright red blood. ROS General General: Yes weight change and fatigue; No appetite, colon cancer, breast cancer or weakness HEENT HEENT: No difficulty swallowing, eye injury, eye surgery, swollen glands or hoarseness Endo Endocrine: Yes thyroid disease; No diabetes mellitus, thyroid cancer, Hair loss, heat intolerance or cold intolerance Skin Skin: No rash or changing moles Breast Breast: No left breast lump, right breast lump, nipple discharge, breast pain, abnormal mammogram, abnormal US or breast enlargement Musc Musculoskeletal: Yes back problems and arthritis; No rheumatoid arthritis, gout or joint pain Cardio Cardiovascular: Yes pacemaker, heart disease and high blood pressure; No murmur, atrial fibrillation, heart attack, heart stent, palpitations, shortness of breat with exertion or chest pain Psych Psychiatric: No depression, anxiety or hearing voices Resp Respiratory: No shortness of breath, No sleep apnea, No cough, No COPD, No asthma, No emphysema and No wheezing Gastro Gastrointestinal: Yes abdominal pain, No nausea or vomiting, Yes diarrhea, Yes constipation, Yes blood in stool, No acid reflux, Yes hemorrhoids, No ulcers, No gallbladder problem and No black,tarry stools Jorge Hematologic: No blood thinners, No blood disorders, No bleeding, No anemia and No blood clots Neuro Neurologic: No system reviewed and no additional complaints, except as documented, No as per HPI, No abnormal gait, No abnormal hearing, No abnormal movements, No abnormal speech, No behavioral changes, No burning sensations, No confusion, No convulsions, No disequilibrium, No dizziness, No localized weakness, No frequent falls, No headache(s), No lack of coordination, No loss of vision, No memory loss, No numbness, No other visual disturbances, No radicular pain, No restless legs, No sensory deficit, No syncope, No tingling, No tremor(s), No weakness and No other Exam Const General: cooperative Orientation: alert and oriented x3 HENMT Head: normal to inspection Neck Neck: normal visual inspection and full ROM Chest Chest palpation & inspection: normal inspection of the chest Resp Effort & Inspection: normal respiratory effort Auscultation: clear to auscultation bilaterally Cardio Rate: regular rate Rhythm: regular rhythm GI Inspection: non-distended Palpation: soft and nontender Skin General: no rashes or lesions noted Neuro General: patient alert and patient oriented x3 Extrem General: full ROM Psych Appearance: grossly normal Mental Status: mental status grossly normal Assessment and Plan Assessment and Plan (1) Black tarry stools: Status: Acute (2) Hemorrhoids: Status: Acute Qualifiers: Hemorrhoid type: second degree Qualified Code(s): K64.1 - Second degree hemorrhoids (3) Constipation: Status: Acute Qualifiers: Constipation type: unspecified constipation type Qualified Code(s): K59.00 - Constipation, unspecified Orders: Orders: Colonoscopy Today K92.1, K64.1, K59.00 EGD Today K92.1 Plan - Dr. Rico Quiroz MD: The patient reports that she has been taking the MiraLAX and stool softeners but now she is having several bowel movements today and she feels a lot of fullness and pressure and she is unable to fully empty her bowels. Patient also reports she has been having black tarry stools but no bright red bleeding. I recommended that she stop the MiraLAX and adjust the stool softeners says she is only having 1 bowel movement daily. At this time I recommend upper and lower endoscopy to rule out any malignancy or source of GI bleeding. If that is normal then I will retroflexed and take pictures of her hemorrhoids and possibly perform hemorrhoidectomy. I explained endoscopy in detail to the patient. I explained the risks including but not limited to stroke or heart attack with anesthesia, perforation of the GI tract, bleeding, infection. I explained that any of these could necessitate further emergency surgery. The patient understands and all questions were answered sufficiently. The patient wishes to proceed with procedure. Rico Quiroz MD Pager: [facility] [address] [place] [address], [address] [place] [address] Office: I have re-examined the patient. There are no clinical changes since date of exam.
--- NOTE | 2021-03-08 09:41 | OP.EGD_ITS ---
Patient Name: Stephenie Lee Procedure Date: 03/08/2021 9:13 AM Date of : 1950 Age: 70 Procedure: Upper GI endoscopy Indications: Melena Providers: Rico Quiroz MD Referring MD: Michele Palma Medicines: Monitored Anesthesia Care Patient Profile: This is a 70 year old female. Refer to note in patient chart for documentation of history and physical. Complications: No immediate complications. Procedure: Pre-Anesthesia Assessment: - Prior to the procedure, a History and Physical was performed, and patient medications and allergies were reviewed. The patient's tolerance of previous anesthesia was also reviewed. The risks and benefits of the procedure and the sedation options and risks were discussed with the patient. All questions were answered, and informed consent was obtained. Prior Anticoagulants: The patient has taken no previous anticoagulant or antiplatelet agents. After reviewing the risks and benefits, the patient was deemed in satisfactory condition to undergo the procedure. After obtaining informed consent, the endoscope was passed under direct vision. Throughout the procedure, the patient's blood pressure, pulse, and oxygen saturations were monitored continuously. The Endoscope was introduced through the mouth, and advanced to the second part of duodenum. The upper GI endoscopy was accomplished without difficulty. The patient tolerated the procedure well. Scope In: 9:21:45 AM Scope Out: 9:24:21 AM Total Procedure Duration Time 0 hours 2 minutes 36 seconds Findings: The esophagus was normal. The stomach was normal. The examined duodenum was normal. Impression: - Normal esophagus. - Normal stomach. - Normal examined duodenum. - No specimens collected. Recommendation: - Discharge patient to home. - Resume previous diet. - Continue present medications. Procedure Code(s): --- Professional --- 63626, Esophagogastroduodenoscopy, flexible, transoral; diagnostic, including collection of specimen(s) by brushing or washing, when performed (separate procedure) Diagnosis Code(s): --- Professional --- K92.1, Melena (includes Hematochezia) CPT copyright 2017 [employer] [employer]. All rights reserved. The codes documented in this report are preliminary and upon rest room attendant review may be revised to meet current compliance requirements. Rico Quiroz MD 03/08/2021 9:41:34 AM This report has been signed electronically. Number of Addenda: 0 Note Initiated On: 03/08/2021 9:13 AM
--- NOTE | 2021-03-08 09:42 | OP.CCLET_ITS ---
03/08/2021 Michele Palma [address] [place] [address] Re : Upper GI endoscopy procedure for Stephenie Jesus Dear Dr. Palma This procedure was performed on Monday, March 08, 2021. My impressions and recommendations are as follows: Impressions : - Normal esophagus. - Normal stomach. - Normal examined duodenum. - No specimens collected. Recommendations : - Discharge patient to home. - Resume previous diet. - Continue present medications. My findings are described in the full procedure note, which is enclosed. If I can be of further assistance, please feel free to contact me at Doctor phone number(s): , Work: . Sincerely, Rico Quiroz MD 03/08/2021 9:41:34 AM This report has been signed electronically.
--- NOTE | 2021-03-08 09:45 | OP.COLON_ITS ---
Patient Name: Stephenie Lee Procedure Date: 03/08/2021 9:25 AM Date of : 1950 Age: 70 Procedure: Colonoscopy Indications: Melena Providers: Rico Quiroz MD Referring MD: Michele Palma Medicines: Monitored Anesthesia Care Patient Profile: This is a 70 year old female. Refer to note in patient chart for documentation of history and physical. Last Colonoscopy: more than 10 years ago. Complications: No immediate complications. Procedure: Pre-Anesthesia Assessment: - Prior to the procedure, a History and Physical was performed, and patient medications and allergies were reviewed. The patient's tolerance of previous anesthesia was also reviewed. The risks and benefits of the procedure and the sedation options and risks were discussed with the patient. All questions were answered, and informed consent was obtained. Prior Anticoagulants: The patient has taken no previous anticoagulant or antiplatelet agents. After reviewing the risks and benefits, the patient was deemed in satisfactory condition to undergo the procedure. After I obtained informed consent, the scope was passed under direct vision. Throughout the procedure, the patient's blood pressure, pulse, and oxygen saturations were monitored continuously. The colonoscope was introduced through the anus and advanced to the cecum, identified by appendiceal orifice and ileocecal valve. The colonoscopy was performed without difficulty. The patient tolerated the procedure well. The quality of the bowel preparation was good. Scope In: 9:26:42 AM Scope Withdrawal Time 0 hours 6 minutes 3 seconds Scope Out: 9:39:34 AM Total Procedure Duration Time 0 hours 12 minutes 52 seconds Findings: Non-bleeding internal hemorrhoids were found during retroflexion. The entire examined colon appeared normal on direct and retroflexion views. Impression: - Non-bleeding internal hemorrhoids. - The entire examined colon is normal on direct and retroflexion views. - No specimens collected. Recommendation: - Discharge patient to home. - Resume previous diet. - Continue present medications. - Repeat colonoscopy is not recommended due to current age (66 years or older) for screening purposes. Procedure Code(s): --- Professional --- 73744, Colonoscopy, flexible; diagnostic, including collection of specimen(s) by brushing or washing, when performed (separate procedure) Diagnosis Code(s): --- Professional --- K64.8, Other hemorrhoids K92.1, Melena (includes Hematochezia) CPT copyright 2017 [employer]. All rights reserved. The codes documented in this report are preliminary and upon room server review may be revised to meet current compliance requirements. Rico Quiroz MD 03/08/2021 9:45:31 AM This report has been signed electronically. Number of Addenda: 0 Note Initiated On: 03/08/2021 9:25 AM
--- NOTE | 2021-03-08 09:46 | OP.CCLET_ITS ---
03/08/2021 Michele Palma [address] [place] [address] Re : Colonoscopy procedure for Stephenie Lee Dear Dr. Palma This procedure was performed on Monday, March 08, 2021. My impressions and recommendations are as follows: Impressions : - Non-bleeding internal hemorrhoids. - The entire examined colon is normal on direct and retroflexion views. - No specimens collected. Recommendations : - Discharge patient to home. - Resume previous diet. - Continue present medications. - Repeat colonoscopy is not recommended due to current age (66 years or older) for screening purposes. My findings are described in the full procedure note, which is enclosed. If I can be of further assistance, please feel free to contact me at Doctor phone number(s): , Work: . Sincerely, Rico Quiroz MD 03/08/2021 9:45:31 AM This report has been signed electronically.
== END 2021-03-08 10:33 ==
LOC: EN 07:49 → AC 07:50
PROVIDERS: PCP Family Medicine; Referring Provider Family Medicine; Visit Provider Surgery
PROC: 0DJD8ZZ Inspection of Lower Intestinal Tract, Via Natural or Artificial Opening Endoscopic (ICD-10-PCS; CPT 45378; principal; 2021-03-08 08:55)
DX: K92.1 Melena (principal); K64.8 Other hemorrhoids; K59.00 Constipation, unspecified; K64.1 Second degree hemorrhoids; I10 Essential (primary) hypertension; K21.9 Gastro-esophageal reflux disease without esophagitis; E78.5 Hyperlipidemia, unspecified; E03.9 Hypothyroidism, unspecified; M79.7 Fibromyalgia
CPT/HCPCS: 43235; 45378; 87426; C9803; J7120; J2405

== ENCOUNTER → 2021-03-10 12:14 | Outpatient (CLI) | payer MEDICARE, SELFPAY ==
[2021-03-10 11:20] VITALS: BMI 27.3
[2021-03-10 12:49] LABS: Absolute Lymphocyte Count 2.18 X10^3/uL (0.83-4.51); Absolute Neutrophil Count 3.8 X10^3/uL (2.0-7.7); Basophil# 0.04 X10^3/uL; Basophil% 0.6 % (0-1); Eosinophils% 2.9 % (0-5); Hematocrit 38.4 % (37-47); Hemoglobin 12.7 g/dL (12.0-15.0); Lymphocyte # 2.18 X10^3/ul (0.83-4.51); Lymphocyte % 31.8 % (19-41); Mean Corp Hgb Conc 33.1 g/dL (32-36); Mean Corpuscular Hgb 30.8 pg (27.0-32.0); Mean Platelet Vol. 9.4 fl (6.2-12.0); Monocyte# 0.62 X10^3/uL; Monocyte% 9.1 % (0-10); NRBC Flagged by Analyzer 0 % (0-5); Neutrophil # 3.79 X10^3/uL (2.7-7.7); Neutrophil % 55.3 % (47-70); Platelet Count 232 K/mm3 (150-450); RBC Distribution Width CV 12.6 % (11.6-14.6); RBC Distribution Width SD 43.4 fl (35.1-43.9); Red Blood Count 4.13 M/mm3 (4.2-5.4); White Blood Count 6.9 K/mm3 (4.4-11.0)
[2021-03-10 13:04] LABS: BNP,B-Type NATRIURETIC PEPTIDE 49.9 pg/mL (0-100)
== END ==
PROVIDERS: PCP Family Medicine; Referring Provider Nurse Practitioner Family; Visit Provider Nurse Practitioner Family
DX: E78.00 Pure hypercholesterolemia, unspecified (principal); I42.8 Other cardiomyopathies; R06.00 Dyspnea, unspecified
CPT/HCPCS: 36415; 83880; 85025

== ENCOUNTER → 2021-03-23 10:49 | Outpatient (CLI) | payer MEDICARE, SELFPAY ==
[2021-03-10 11:20] VITALS: BMI 27.3
--- NOTE | 2021-03-23 10:52 | ECHOD_ITS ---
Reason For Study: DYSPNEA Procedure This was a 2D Doppler, Color Flow transthoracic echocardiogram. Exam performed in department. Left Ventricle Normal LV size. Left ventricular systolic function is normal. The estimated ejection fraction is 50 %. Stage 1 diastolic dysfunction. No regional wall motion abnormalities noted. Mitral Valve Normal mitral valve. Mild (1+) eccentric mitral valve insufficiency. Tricuspid Valve Normal tricuspid valve. Mild (1+) tricuspid valve insufficiency. Pulmonary artery systolic pressure is 27 mmHg. Pulmonic Valve Normal pulmonic valve. Great Vessels Normal aortic root. The pulmonary artery is normal size. Normal inferior vena cava. Pericardium/Pleural No pericardial effusion. MMode/2D Measurements & Calculations LVIDd: 4.3 cm IVSd: 0.67 cm Ao root diam: 3.0 cm LVIDs: 3.2 cm LVPWd: 0.73 cm RVDd: 3.1 cm FS: 24.4 % LAV(MOD-bp): 48.0 ml LA dimension(2D): 3.4 cm LA A4 area: 15.8 cm2 LAV(MOD-bp) Indexed: 27.7 ml/m2 LAV(MOD-sp2): 51.0 ml LAV(MOD-sp4): 39.1 ml RA A4 area: 12.3 cm2 Time Measurements MV dec time: 0.21 sec Doppler Measurements & Calculations MV E max isiah: 79.7 cm/sec Lat Peak E' Isiah: 6.2 cm/sec Med Peak E' Isiah: 5.7 cm/sec MV A max isiah: 110.3 cm/sec E/E' lat: 12.9 E/E' med: 13.9 MV E/A: 0.72 Ao V2 max: 105.8 cm/sec LV V1 max: 71.4 cm/sec PA V2 max: 71.1 cm/sec Ao max P.5 mmHg LV V1 max P.0 mmHg TR max isiah: 244.1 cm/sec TR max P.8 mmHg ECHO/Echo Complete Interpretation Summary Normal LV size. Left ventricular systolic function is normal. The estimated ejection fraction is 50 %. Stage 1 diastolic dysfunction. Pulmonary artery systolic pressure is 27 mmHg. The global longitudinal strain is mildly abnormal. The global longitudinal stra in = -15.4% (abnormal). Ordering Physician: Varun Garay/Jace Subramanian Referring Physician: FERNANDO GRIFFITH Performed By: Sherie Jones RDCS, RVT
== END ==
PROVIDERS: PCP Family Medicine; Referring Provider Nurse Practitioner Family; Visit Provider Nurse Practitioner Family
DX: R06.00 Dyspnea, unspecified (principal); I42.8 Other cardiomyopathies; Z95.810 Presence of automatic (implantable) cardiac defibrillator; I10 Essential (primary) hypertension; E78.00 Pure hypercholesterolemia, unspecified; I44.7 Left bundle-branch block, unspecified
CPT/HCPCS: 93306

== ENCOUNTER → 2021-06-22 15:14 | Outpatient (CLI) | payer MEDICARE, SELFPAY ==
--- NOTE | 2021-06-22 15:26 | RAD_ITS ---
History: BACK PAIN Lumbar spine 3 views: Findings: No acute fracture or subluxation. Vertebroplasty changes noted at the T9 level. Mild disc space narrowing of vertebral body osteophytosis noted throughout the lumbar spine. Facet arthropathy present at L4-5 and L5-S1. Pedicles and posterior elements appear intact. IMPRESSION: Mild diffuse spondylosis. at 1703 Reported and signed by: Jeb Hood MD Electronically Signed: Jeb Hood MD at 17:02 EDT Tel , Service support , RAD/Lumbar Spine 2 or 3 Views
--- NOTE | 2021-06-22 15:26 | RAD_ITS ---
History: BACK PAIN Thoracic spine 2 views: Findings: No acute fracture, subluxation or paraspinal mass. T9 vertebral body vertebroplasty change with moderate loss in vertebral body height. Mild multilevel disc space narrowing and vertebral body spurring. Intravasation did contrast from the vertebroplasty noted within the adjacent spinal veins and within left lower lobe primary artery branch. IMPRESSION: T9 vertebroplasty. Mild diffuse spondylosis. As above. at 1705 Reported and signed by: Jeb Hood MD Electronically Signed: Jeb Hood MD at 17:03 EDT Tel , Service support , RAD/Thoracic Spine 2 Views
== END ==
PROVIDERS: PCP Family Medicine; Referring Provider Anesthesiology Pain Medicine; Visit Provider Anesthesiology Pain Medicine
DX: M54.9 Dorsalgia, unspecified (principal)
CPT/HCPCS: 72070; 72100

== ENCOUNTER → 2022-01-27 | Outpatient (CLI) | payer MEDICARE, SELFPAY ==
[2022-01-27 12:42] LABS: Hemoglobin A1c 5.5 % (3.8-5.6)
[2022-01-27 12:48] LABS: Vitamin D,25 Hydroxy 84.4 ng/mL
[2022-01-27 13:03] LABS: ALB/GLOB Ratio 0.9 RATIO (0.9-2.4); AST(SGOT) 20 U/L (15-37); Alanine Aminotransfer ALT/SGPT 22 U/L (13-56); Albumin, Serum 3.6 g/dL (3.2-5.0); Alkaline Phosphatase 39 U/L (45-117); Anion Gap 6 (5-15); BUN 17 mg/dL (7-18); BUN/Creat Ratio 17.4 RATIO (10-20); Calcium,Total 9.2 mg/dL (8.5-10.1); Chloride 104 mmol/L (98-107); Creatinine, Serum 0.98 mg/dL (0.55-1.02); EST Glomerular Filtration Rate 60 mL/min (>60); Est Glom Filt Rate - Afr Amer 72 mL/min (>60); Free T3 2.5 pg/mL (2.18-3.98); Globulin 3.8 g/dL (2.2-4.2); Glucose 90 mg/dL (74-106); Potassium 4.5 mmol/L (3.5-5.1); Protein, Total 7.4 g/dL (6.4-8.2); Sodium Level 138 mmol/L (136-145)
== END | disposition home or self-care (01) ==
LOC: MTLAB 11:13
PROVIDERS: PCP Family Medicine; Referring Provider Internal Medicine Endocrinology, Diabetes & Metabolism; Visit Provider Internal Medicine Endocrinology, Diabetes & Metabolism
DX: E03.9 Hypothyroidism, unspecified (principal); M81.0 Age-related osteoporosis without current pathological fracture; E55.9 Vitamin D deficiency, unspecified; R63.5 Abnormal weight gain
CPT/HCPCS: 36415; 80053; 82306; 83036; 84443; 84481

== ENCOUNTER 2022-02-15 12:30 | Outpatient (RCR) | payer MEDICARE, SELFPAY ==
--- NOTE | 2022-01-11 11:49 | HP.PTEVAL ---
Patient's Visit Information REJI GILLESPIE is a 71 year old F referred to Physical Therapy by Dr. Michele Palma MD with a diagnosis of FIBROMYALGIA AND CHRONIC LOW BACK/THORACIC PAIN. Date of Evaluation: 01/11/22 Physical Therapist: Joseline Carter PT, Cert MDT - Visit Plan Frequency: 2-3x /Week Duration: 6-8 WKS Plan: *CHECK AUTH: RECORD # OF VISITS APPROVED AND EXPIRATION DATE. CHECK CODES APPROVED WITH POC*. AQUATIC THERAPY FOR PAIN RELIEF, POSTURE CORRECTION/STRENGTHENING, INSTRUCTION IN APPROPRIATE BODY MECHANICS AND ACTIVITY MODIFICATIONS. DLS STARTING WITH A NEUTRAL SPINE PROGRESSING ROM TOLERATED. PAU LE ROM, STRETCHING AND STRENGTHENING. HEP INSTRUCTION. - Subjective Work/Leisure: RETIRED. Present symptoms: MY WHOLE BODY HURTS. PATIENT REPORTS SHE IS IN A FIBRO FLARE. RIGHT GROIN PAIN STARTED OCT 2021. Present since: CHRONIC BUT GOT WORSE SEP 2021. Pain Scale: WORST 8/10, LEAST 2/10. Currently: 10. Commenced as a result of: CARING FOR 94 YO MOTHER OUT OF STATE FOR 4 MONTHS UNTIL PLACING HER IN ASSISTED LIVING. Symptoms at onset: HIPS. Worse: SITTING OR LAYING TOO LONG, MOVING WRONG, STANDING TOO LONG. Better: FREQUENT CHANGE OF POSITION, PAIN MEDS. Disturbed sleep: YES. Previous history/Previous treatment: PHYSICAL THERAPY, PAIN MGMT INJECTIONS, T9 VERTEBRALPLASTY. Coughing/sneezing/straining: NEGATIVE. Gait: TIME AND DISTANCE LIMITED DUE TO PAIN. NOT STEADY USE TO BE. Difficulty initiating urination: DENIES BOWEL AND BLADDER DYSFUNCTION. Accidents: PASSED OUT IN THE NIGHT COMING BACK FROM BATHROOM AND FELL AND BROKE BACK - T9. Unexplained weight loss: NO. Imaging: NONE RECENT. PMH/Recent major surgery: HYPOTHYRODISM, *PACEMAKER/DEFIBULATOR*, ENLARGED HEART, BLOCKED L BUNDLE BRANCH, LYMPHADEMEA. - Objective Sitting/Standing Posture: POOR. FH. RSH'S. Lordosis: REDUCED. Lateral shift: NO. Relevant shift: N/A. Active Correction of posture: INCREASES UPPER BACK PAIN. Other Observations: THIS PATIENT AMBULATES INDEP'LY INTO PT WITH A SLOW ANTALGIC GAIT PATTERN, NO AD'S AND NO LOB. HER GAIT AND TRANFERS ARE SLOW AND GUARDED. ABLE TO TRANSFER INDEP;LY FROM SIT TO STAND WITHOUT UE ASSIST BUT IT IS DIFFICULT. Sensory deficit: DECREASED PAU LOWER LEG LIGHT TOUCH - CHRONIC SINCE LEG SURGERIES ABOUT 5 YEARS AGO. ROM deficit: MILD PAU LE HS AND GASTROC SOLEUS TIGHTNESS. R GROIN PAIN WITH R HIP ER TESTING AND PAU LATERAL HIP PAIN WITH IPSILATERAL HIP IR ROM TESTING BUT ROM WFL AND SYMMETRICAL. Motor deficit: PAU LE STRENGTH GROSSLY 5/5 EXCEPT HIPS: R 4-/5, L 4/5. Dural Signs: NEGATIVE PAU LE'S. Lumbar mvmt loss: flex - NIL. ext - MOD. R SG - MOD. L SG - MOD. THORACIC MVMT LOSS: MILD PAU ROTATION AND C/O INCRASED UPPER BACK PAIN WITH TESTING. PATIENT DENIES INCREASED PAIN WITH LUMBAR ROM TESTING ALL PLANES TODAY. Core strength: POOR. Palpation: TENDERNESS THROUGHOUT LUMBOSACRAL AND PAU HIP REGIONS. TREATMENT: NEUROMUSCULAR REEDUCATION - RETRAINING OF MVMT AND POSTURE FOR SITTING, LYING AND STANDING ACTIVITIES. - Balance/Special Test Scores Oswestry Low Back Score: 17 TUG Test Time Seconds: 12.67 30 Second Chair Rise Test Seconds: 4 - Goals Goal 1:: DECREASE C/O GENERAL SPINE AND FIBROMYALGIA PAIN TO EASE ADL'S. Goal Time Frame: 4-6 Weeks Goal 2:: IMPROVE LIFTING, WALKING, SITTING, STANDING, SLEEP, SOCIAL LIFE, TRAVEL AND HOMEMAKING FUNCTION Goal Time Frame: 4-6 Weeks Goal 3:: INSTRUCT IN PROPHYLAXIS Goal Time Frame: 4-6 Weeks Goal 4:: PATIENT WILL COMPLETE 8 STANDS IN 30 SECS TO DEMONSTRATE IMPROVED FUNCTIONAL STRENGTH Goal Time Frame: 4-6 Weeks Goal 5:: PATIENT WILL COMPLETE TUG IN <11 SECS TO DEMONSTRATE IMPROVED GAIT STABILITY Goal Time Frame: 4-6 Weeks - Anticipated Interventions Patient/Client Instruction: Educate patient on: Condition, Plan of Care, Risk Factors For the Purpose of:: To improve self management Therapeutic Exercise to Include: Strength training, Body mechanics, Postural training, Flexibilty training, Gait and locomotor training, Neuromotor development, In an aquatic setting, Dynamic Lumbar Stabilization For the Purpose of:: To decrease pain, To increase ROM, To improve muscle performance and motor function, To improve ability to perform ADL's, To increase tolerance to activity/condition/position, To improve ability of physical actions for home/community/work/leisure, To improve gait and locomotor functions Thank you for the opportunity to evaluate your patient. For Medicare and Medicare HMO plans, please review the plan of care and approve it. It will need to be FAXED BACK to us at [phone] for Medicare purposes. For Medicare only, by signing this I certify the plan of care. Please let me know if there are questions or concerns regarding this plan of care. Physician Signature: Date:
--- NOTE | 2022-02-13 14:01 | HP.PTREVAL ---
Dr. Michele Palma MD, It has been my pleasure to treat REJI GILLESPIE over the last 4 visits for FIBROMYALGIA AND CHRONIC LOW BACK/THORACIC PAIN. Please see the progress note below for an update on the physical therapy plan of care! Subjective: PATIENT REPORTS THAT EVER SINCE SHE GOT SICK WITH COVID SHE IS HAVING A LOT OF PAIN IN BOTH LEGS AND ESPECIALLY BOTH CALVES. PATIENT REPORTS THE POOL JOSEPH'TS WERE GOING OK BEFORE SHE GOT SICK. Objective/Function: PATIENT WAS SEEN TODAY FOR RE-ASSESSMENT OF PROGRESS TOWARD THE SET PT GOALS AND THE NEED FOR FURTHER PHYSICAL THERAPY VS READINESS FOR DISCHARGE. UPON EXAM TODAY THERE ARE NO SIGNIFICANT CHANGES SINCE INITIAL EVAL BUT PATIENT IS REPORTING INCREASED LEG PAIN. SHE IS AGREEABLE TO RESUMING AQUATIC THERAPY AND THIS PT IS AGREEABLE TOO. INSTRUCTED PATIENT IN WALKING PROGRAM AND SHE COMMUNICATED A GOOD UNDERSTANDING OF INSTRUCTIONS AFTER GIVEN. Plan Plan: *Add lateral amb with review of good gait mechanics and add rest of DLP tasks. *Progress piriformis stretch to HEP next. AQUATIC THERAPY FOR PAIN RELIEF, POSTURE CORRECTION/STRENGTHENING, INSTRUCTION IN APPROPRIATE BODY MECHANICS AND ACTIVITY MODIFICATIONS. DLS STARTING WITH A NEUTRAL SPINE PROGRESSING ROM TOLERATED. PAU LE ROM, STRETCHING AND STRENGTHENING. HEP INSTRUCTION. Balance/Gait/Functional tests - Balance/Special Test Scores Oswestry Low Back Score: 21 TUG Test Time Seconds: 12.67 Tug Test: <20 sec.=mostly independent 30 Second Chair Rise Test Seconds: 4 Goals Goal 1:: DECREASE C/O GENERAL SPINE AND FIBROMYALGIA PAIN TO EASE ADL'S. Goal Time Frame: 4-6 Weeks Goal Progress: Not Progressing Goal 2:: IMPROVE LIFTING, WALKING, SITTING, STANDING, SLEEP, SOCIAL LIFE, TRAVEL AND HOMEMAKING FUNCTION Goal Time Frame: 4-6 Weeks Goal Progress: Not Progressing Goal 3:: INSTRUCT IN PROPHYLAXIS Goal Time Frame: 4-6 Weeks Goal Progress: Not Progressing Goal 4:: PATIENT WILL COMPLETE 8 STANDS IN 30 SECS TO DEMONSTRATE IMPROVED FUNCTIONAL STRENGTH Goal Time Frame: 4-6 Weeks Goal Progress: Not Progressing Goal 5:: PATIENT WILL COMPLETE TUG IN <11 SECS TO DEMONSTRATE IMPROVED GAIT STABILITY Goal Time Frame: 4-6 Weeks Goal Progress: Not Progressing Anticipated Interventions Patient/Client Instruction: Educate patient on: Condition, Plan of Care, Risk Factors For the Purpose of:: To improve self management Therapeutic Exercise to Include: Strength training, Body mechanics, Postural training, Flexibilty training, Gait and locomotor training, Neuromotor development, In an aquatic setting, Dynamic Lumbar Stabilization For the Purpose of:: To decrease pain, To increase ROM, To improve muscle performance and motor function, To improve ability to perform ADL's, To increase tolerance to activity/condition/position, To improve ability of physical actions for home/community/work/leisure, To improve gait and locomotor functions Please do not hesitate to contact me at [phone] by phone or if you have questions or concerns regarding this new plan of care! Sincerely, Joseline Carter, PT, Cert MDT
--- NOTE | 2022-07-04 12:11 | HP.PTDCSUM ---
It has been my pleasure to treat REJI GILLESPIE referred by Dr. Michele Palma MD, with the diagnosis of FIBROMYALGIA AND CHRONIC LOW BACK/THORACIC PAIN for a total of 5 visit(s). Discharge Date: Please see the following information for a summary of their discharge status. Subjective: No new c/o's. Lumbar Spine Pain Intensity (Out of 10): 6 RLE Pain Intensity (Out of 10): 6 LLE Pain Intensity (Out of 10): 6 % Improvement: 0 Objective/Function: Demo'ing Trendelenburg L>R with addition of lateral amb. Improved with VCs for glute med. contraction as well as shorter strides with moderate improvement noted. Cues to avoid excessive ER of stance LE with lateral amb also. Ed. on land versions and modifications of piriformis stretch. Frequent cueing to avoid excessive LB ext d/t demo's of this. Goal 1:: DECREASE C/O GENERAL SPINE AND FIBROMYALGIA PAIN TO EASE ADL'S. Goal Progress: Not Progressing Goal 2:: IMPROVE LIFTING, WALKING, SITTING, STANDING, SLEEP, SOCIAL LIFE, TRAVEL AND HOMEMAKING FUNCTION Goal Progress: Not Progressing Goal 3:: INSTRUCT IN PROPHYLAXIS Goal Progress: Not Progressing Goal 4:: PATIENT WILL COMPLETE 8 STANDS IN 30 SECS TO DEMONSTRATE IMPROVED FUNCTIONAL STRENGTH Goal Progress: Not Progressing Goal 5:: PATIENT WILL COMPLETE TUG IN <11 SECS TO DEMONSTRATE IMPROVED GAIT STABILITY Goal Progress: Not Progressing Plan: *Add rest of DLP tasks and glute med. stabilization BLAT. *f/u with new HEP tasks. AQUATIC THERAPY FOR PAIN RELIEF, POSTURE CORRECTION/STRENGTHENING, INSTRUCTION IN APPROPRIATE BODY MECHANICS AND ACTIVITY MODIFICATIONS. DLS STARTING WITH A NEUTRAL SPINE PROGRESSING ROM TOLERATED. PAU LE ROM, STRETCHING AND STRENGTHENING. HEP INSTRUCTION. If there are questions or concerns regarding this patient's physical therapy, please feel free to call me at [phone]. Thank you for the referral of this patient. Sincerely, Joseline Carter, PT, Cert MDT Balance/Gait/Functional tests - Balance/Special Test Scores Oswestry Low Back Score: 21 TUG Test Time Seconds: 12.67 Tug Test: <20 sec.=mostly independent 30 Second Chair Rise Test Seconds: 4
== END 2022-02-15 19:00 | disposition home or self-care (01) ==
LOC: PT 12:30
PROVIDERS: PCP Family Medicine; Referring Provider Family Medicine; Visit Provider Family Medicine
DX: M79.7 Fibromyalgia (principal); G89.29 Other chronic pain; M54.6 Pain in thoracic spine
CPT/HCPCS: 97112; 97113; 97162; 97164

== ENCOUNTER 2022-02-16 10:52 | Outpatient (CLI) | payer MEDICARE, SELFPAY ==
[2022-02-16 15:26] LABS: AST(SGOT) 21 U/L (15-37); Alanine Aminotransfer ALT/SGPT 25 U/L (13-56); Albumin, Serum 3.6 g/dL (3.2-5.0); Alkaline Phosphatase 38 U/L (45-117); Bilirubin, Direct 0.11 mg/dL (0.00-0.30); Cholesterol 223 mg/dL (200); Globulin 3.7 g/dL (2.2-4.2); High Density Lipoprotein 71 mg/dL; Protein, Total 7.3 g/dL (6.4-8.2); Triglycerides 150 mg/dL; Very Low Density Lipoprotein 30 mg/dL (5-40)
== END 2022-02-16 23:59 | disposition home or self-care (01) ==
PROVIDERS: Internal Medicine Cardiovascular Disease; PCP Family Medicine; Referring Provider Internal Medicine Endocrinology, Diabetes & Metabolism; Visit Provider Internal Medicine Endocrinology, Diabetes & Metabolism
DX: M81.0 Age-related osteoporosis without current pathological fracture (principal); E78.00 Pure hypercholesterolemia, unspecified
CPT/HCPCS: 36415; 80061; 80076; 82570

== ENCOUNTER → 2022-02-17 | Outpatient (CLI) | payer MEDICARE, SELFPAY | END | disposition home or self-care (01) | PROVIDERS: PCP Family Medicine; Referring Provider Internal Medicine Endocrinology, Diabetes & Metabolism; Visit Provider Internal Medicine Endocrinology, Diabetes & Metabolism | DX: M81.0 Age-related osteoporosis without current pathological fracture (principal) ==

== ENCOUNTER → 2022-06-27 | Outpatient (CLI) | payer MEDICARE, SELFPAY ==
[2022-06-27 08:54] LABS: AST(SGOT) 20 U/L (15-37); Alanine Aminotransfer ALT/SGPT 19 U/L (13-56); Albumin, Serum 3.3 g/dL (3.2-5.0); Alkaline Phosphatase 39 U/L (45-117); Bilirubin, Direct 0.06 mg/dL (0.00-0.30); Cholesterol 210 mg/dL (200); Globulin 3.9 g/dL (2.2-4.2); High Density Lipoprotein 64 mg/dL; Protein, Total 7.2 g/dL (6.4-8.2); Triglycerides 142 mg/dL; Very Low Density Lipoprotein 28 mg/dL (5-40)
== END | disposition home or self-care (01) ==
LOC: LAB 07:49
PROVIDERS: PCP Family Medicine; Visit Provider Internal Medicine Cardiovascular Disease
DX: E78.00 Pure hypercholesterolemia, unspecified (principal)
CPT/HCPCS: 36415; 80061; 80076

== ENCOUNTER → 2022-07-10 | Outpatient (CLI) | payer MEDICARE, SELFPAY ==
[2022-07-10 12:58] LABS: BNP,B-Type NATRIURETIC PEPTIDE 37.8 pg/mL (0-100)
[2022-07-10 13:02] LABS: Anion Gap 7 (5-15); BUN 15 mg/dL (7-18); Calcium,Total 9.7 mg/dL (8.5-10.1); Chloride 104 mmol/L (98-107); EST Glomerular Filtration Rate 58 mL/min (>60); Est Glom Filt Rate - Afr Amer 70 mL/min (>60); Glucose 99 mg/dL (74-106); Potassium 4.6 mmol/L (3.5-5.1); Sodium Level 138 mmol/L (136-145)
== END | disposition home or self-care (01) ==
LOC: LAB 11:20
PROVIDERS: PCP Family Medicine; Referring Provider Nurse Practitioner Family; Visit Provider Nurse Practitioner Family
DX: R06.09 Other forms of dyspnea (principal); I42.8 Other cardiomyopathies
CPT/HCPCS: 36415; 80048; 83880

== ENCOUNTER → 2022-07-11 | Outpatient (CLI) | payer MEDICARE, SELFPAY | END | disposition home or self-care (01) | LOC: LABSPEC 15:52 | PROVIDERS: PCP Family Medicine; Referring Provider Family Medicine; Visit Provider Family Medicine | DX: R39.89 Other symptoms and signs involving the genitourinary system (principal) | CPT/HCPCS: 87086; 87088 ==

== ENCOUNTER → 2023-01-29 | Outpatient (CLI) | payer MEDICARE, SELFPAY ==
[2023-01-29 10:22] LABS: ALB/GLOB Ratio 0.9 RATIO (0.9-2.4); AST(SGOT) 20 U/L (15-37); Alanine Aminotransfer ALT/SGPT 20 U/L (13-56); Albumin, Serum 3.6 g/dL (3.2-5.0); Alkaline Phosphatase 40 U/L (45-117); Anion Gap 2 (5-15); BUN 18 mg/dL (7-18); BUN/Creat Ratio 17.8 RATIO (10-20); Calcium,Total 9.1 mg/dL (8.5-10.1); Chloride 107 mmol/L (98-107); Cholesterol 191 mg/dL (200); Creatinine, Serum 1.01 mg/dL (0.55-1.02); EST Glomerular Filtration Rate 57 mL/min (>60); Est Glom Filt Rate - Afr Amer 69 mL/min (>60); Globulin 3.9 g/dL (2.2-4.2); Glucose 106 mg/dL (74-106); High Density Lipoprotein 69 mg/dL; Potassium 4.2 mmol/L (3.5-5.1); Protein, Total 7.5 g/dL (6.4-8.2); Sodium Level 137 mmol/L (136-145); Thyroid Stim Hormone (TSH) 2.41 uIU/mL (0.358-3.74); Triglycerides 132 mg/dL; Very Low Density Lipoprotein 26 mg/dL (5-40)
== END | disposition home or self-care (01) ==
PROVIDERS: PCP Family Medicine; Referring Provider Internal Medicine Endocrinology, Diabetes & Metabolism; Visit Provider Internal Medicine Endocrinology, Diabetes & Metabolism
DX: E03.9 Hypothyroidism, unspecified (principal); M81.0 Age-related osteoporosis without current pathological fracture; E55.9 Vitamin D deficiency, unspecified
CPT/HCPCS: 36415; 80053; 80061; 82306; 84443

== ENCOUNTER → 2023-02-06 | Outpatient (CLI) | payer MEDICARE, SELFPAY | END | disposition home or self-care (01) | LOC: LABSPEC 12:12 | PROVIDERS: PCP Family Medicine; Referring Provider Family Medicine; Visit Provider Family Medicine | DX: R30.0 Dysuria (principal) | CPT/HCPCS: 87086; 87088 ==

== ENCOUNTER → 2023-02-22 | Outpatient (CLI) | payer MEDICARE, SELFPAY ==
--- NOTE | 2023-02-22 08:58 | BD_ITS ---
STUDY: DUAL ENERGY X-RAY ABSORPTIOMETRY / DXA REASON FOR EXAM: Female, 72 years old. M810 TECHNIQUE: Bone Mineral Density (BMD) measurements of lumbar spine and bilateral hips were obtained. COMPARISON: Comparison is made with prior study dated September 21, 2020. FINDINGS: Lumbar Spine (L1-L4): g/cm2 (0.889) / T-score (-1.4) / Z-score (0.8) Findings are suggestive of osteopenia with a low fracture risk. Left Femur Total: g/cm2 (0.850) / T-score (-0.8) / Z-score (0.8) Left Femoral Neck: g/cm2 (0.697) / T-score (-1.4) / Z-score (0.5) Right Femur Total: g/cm2 (0.803) / T-score (-1.1) / Z-score (0.4) Right Femoral Neck: g/cm2 (0.650) / T-score (-1.8) / Z-score (0.1) The T-Scores on the most recent prior examination were: Lumbar Spine (L1-L4): There has been improvement of bone density since the previous examination. Left Femur Total: which represents an improvement of 2.5%. Right Femur Total: which represents an improvement of 2.4%. BD/Dexa Bone Density Study IMPRESSION: The patient is considered osteopenic as outlined below according to World [employer] Organization (WHO) criteria with a moderate fracture risk. There has been improvement of bone density since the previous examination. Reference Information: The T-score is the number of standard deviations above or below the standard which is normal for young adults at their peak bone mineral density. The World Health Organization (WHO) interprets the T-scores as follows: Above -1 Normal bone density Between -1 and -2.5 Osteopenia Equal to / or below -2.5 Osteoporosis As a practical clinical guideline, osteopenia may be graded as follows: Mild -1 through -1.5 Moderate -1.6 through -2.0 Severe -2.1 through -2.4 The Z-score is the number of standard deviations above or below age-matched controls. A Z-score of less than -1.5 would be considered abnormal. References: 1. NIH Osteoporosis and Related Bone Diseases www osteo.org 2. International Society for Clinical Densitometry www iscd.org 3. National Osteoporosis Foundation www nof.org Electronically Signed: Ganesh Dolan MD at 10:30 EDT ,
== END | disposition home or self-care (01) ==
PROVIDERS: PCP Family Medicine; Referring Provider Internal Medicine Endocrinology, Diabetes & Metabolism; Visit Provider Internal Medicine Endocrinology, Diabetes & Metabolism
DX: E03.9 Hypothyroidism, unspecified (principal); M81.0 Age-related osteoporosis without current pathological fracture
CPT/HCPCS: 77080

== ENCOUNTER → 2023-02-28 | Outpatient (CLI) | payer MEDICARE, SELFPAY ==
--- NOTE | 2023-02-28 13:21 | BI_ITS ---
MAMMOGRAPHY - BILATERAL SCREENING REASON FOR EXAM: Female, 72 years old. Routine annual screening examination. PERTINENT HISTORY: Non-contributory. TECHNIQUE: Digital bilateral breast noé (3D mammographic acquisition) in the CC and MLO projections. 2-D mediolateral oblique (MLO) and craniocaudad (CC) views of both breasts were obtained. CAD: Full Field Digital Mammography with Computer Added Detection was performed. COMPARISON: Comparison is made with prior study dated September 21, 2020 and August 22, 2019. FINDINGS: Breast Composition: The breasts are heterogeneously dense, which may obscure small masses. Small cluster microcalcification is seen in the central portion of the right breast. The number of the microcalcifications has increased slightly. The patient will be recalled for additional views including magnification spot views. Stable asymmetric breast tissue within the breast tissue is seen in right breast as compared to the left side. A battery pack is seen in the left axilla. No other significant abnormalities are identified. BI/SCRN MAMM (CAD)W/NOÉ BILAT IMPRESSION: Slight increase in number of microcalcifications in the central portion of the right breast as described. The patient will be recalled for additional views including magnification spot views. ASSESSMENT CATEGORY: BIRADS Category 0: Incomplete. Need additional imaging evaluation. A letter regarding these results will be sent to the patient by the facility within 30 days. Approximately 10% of breast cancers are not detected by mammography. A normal mammogram should not delay biopsy of a clinically suspicious abnormality. [id number] Electronically Signed: Ganesh Dolan MD at 14:19 EDT ,
== END | disposition home or self-care (01) ==
LOC: OPBI 13:20
PROVIDERS: PCP Family Medicine; Referring Provider Family Medicine; Visit Provider Family Medicine
DX: Z12.31 Encounter for screening mammogram for malignant neoplasm of breast (principal)
CPT/HCPCS: 77063; 77067

== ENCOUNTER → 2023-03-02 | Outpatient (CLI) | payer MEDICARE, SELFPAY ==
--- NOTE | 2023-03-02 13:27 | BI_ITS ---
MAMMOGRAPHY - UNILATERAL DIAGNOSTIC: RIGHT BREAST REASON FOR EXAM: Female, 72 years old. Abnormal screening mammogram. PERTINENT HISTORY: Non-contributory. TECHNIQUE: Magnification spot views of the right breast were obtained in the mediolateral oblique and craniocaudad projections. CAD: Full Field Digital Mammography with Computer Added Detection was performed. COMPARISON: Comparison is made with prior study dated February 28, 2023. FINDINGS: Breast Composition: The breasts are heterogeneously dense, which may obscure small masses. The cluster of microcalcification in the upper central portion of the right breast are once again visualized. A biopsy is recommended. No other significant abnormalities are identified. BI/DIAG MAMM W/CAD, UNILAT IMPRESSION: Biopsy of the clustered microcalcifications recommended. ASSESSMENT CATEGORY: BIRADS Category 4: Suspicious - Biopsy Should Be Considered. A letter regarding these results will be sent to the patient by the facility within 30 days. Approximately 10% of breast cancers are not detected by mammography. A normal mammogram should not delay biopsy of a clinically suspicious abnormality. Electronically Signed: Ganesh Dolan MD at 14:23 EDT ,
== END | disposition home or self-care (01) ==
LOC: OPBI 13:26
PROVIDERS: PCP Family Medicine; Referring Provider Family Medicine; Visit Provider Family Medicine
DX: R92.8 Other abnormal and inconclusive findings on diagnostic imaging of breast (principal)
CPT/HCPCS: 77065

== ENCOUNTER → 2023-03-13 | Outpatient (CLI) | payer MEDICARE, SELFPAY ==
--- NOTE | 2023-03-13 11:15 | BRBX_PTH ---
PATIENT: REJI GILLESPIE LOC: [facility] U#:[id number] AGE/SX: 72/F ROOM: RE03/13/[address]: Dr. Rico Quiroz MD : 1950 BED: DIS: 03/13/2023 SPEC #: [id number] RECD: 03/13/23 11:34 STATUS: DEBRA RE #: [id number] EMY: 03/13/23 11:[address]: Rico Quiroz DEPT: SURGICAL PATHOLOGY RECD BY: Liyah Fairchild ENTERED: 03/13/23 12:09 SP TYPE: BREAST BX OTHR DR: Dr. Michele Palma MD Tissues: Right breast, NOS Procedures: Surgery Specimen Level IV HEADER OPERATION: Right breast stereotactic biopsy PRE-OP DIAGNOSIS: Right calcifications TISSUE SUBMITTED: Right breast core tissue ISCHEMIC TIME: 1 minute FIXATION TIME: 8.5 hours MICROSCOPIC DIAGNOSIS Right breast, stereotactic core biopsy: Nonproliferative fibrocystic change. Focal hyalinized stroma with clustered banal microcalcifications. No evidence of malignancy. AM:rosemarie 03/14/2023 MICROSCOPIC DESCRIPTION Slides are reviewed. GROSS DESCRIPTION Received in fixative is one container labeled with the patient's name and designated right breast. The specimen consists of multiple irregular fragments of krishnamurthy-yellow soft tissue that in aggregate measure 2.5 x 2.5 x 0.2 cm. The specimen is totally submitted in one cassette. / AM:rosemarie 03/13/2023 TC:5 CPT: 02390
--- NOTE | 2023-03-13 11:20 | PCM.OPRPT ---
Report of Operation Date of Procedure: 03/13/23 Pre-Operative Diagnosis: Microcalcifications of the right breast Post-Operative Diagnosis: Same Surgery/Procedure Performed:: Stereotactic guided right breast core needle biopsy with placement of clip Specimen's removed: Right breast microcalcifications Description of Procedure: Patient was placed in the stereotactic table and the breast was compressed. The microcalcifications were localized. Stereotactic views were obtained of the microcalcifications and the computer was programmed. Next the skin was prepped and injected with local anesthetic. A small nia was made with a scalpel. The needle was fired into the breast and several biopsies were obtained. The specimens were x-rayed and showed that the microcalcifications were included in the specimens. Next the clip was placed into the breast and then the needle was removed. Repeat x-rays show that the clip was in the place of the biopsy. Next pressure was held for hemostasis and then a Steri-Strip and bandage were placed and the patient received mammograms post biopsy. Patient tolerated the procedure well.
== END | disposition home or self-care (01) ==
LOC: BIRAD 10:45
PROVIDERS: PCP Family Medicine; Visit Provider Surgery
DX: R92.8 Other abnormal and inconclusive findings on diagnostic imaging of breast (principal)
CPT/HCPCS: 19081; 88305; J7050; A4648

== ENCOUNTER → 2023-04-04 | Outpatient (CLI) | payer MEDICARE, SELFPAY ==
--- NOTE | 2023-04-04 12:34 | RAD_ITS ---
STUDY: X-RAY - LEFT KNEE REASON FOR EXAM: Female, 72 years old. pain. pes anserine area TECHNIQUE: 4 view(s) of the knee. COMPARISON: None. FINDINGS: There is demineralization of the visualized distal femur. There is demineralization of the tibia and fibula. Normal proximal tibiofibular articulation. There is severe degenerative arthrosis of the medial femorotibial compartment with severe joint space narrowing. There is mild degenerative arthrosis of the lateral femorotibial compartment. There is moderate degenerative arthrosis of the patellofemoral articulation. The soft tissue structures are unremarkable. RAD/Knee 4 or More Views IMPRESSION: Tricompartmental osteoarthrosis as above most notably along the medial compartment. Electronically Signed: Mirza Daniel DO at 17:25 EDT ,
== END | disposition home or self-care (01) ==
LOC: MTRAD 12:33
PROVIDERS: PCP Family Medicine; Referring Provider Family Medicine; Visit Provider Family Medicine
DX: M76.892 Other specified enthesopathies of left lower limb, excluding foot (principal)
CPT/HCPCS: 73564

== ENCOUNTER 2023-04-26 14:00 | Outpatient (RCR) | payer MEDICARE, SELFPAY ==
--- NOTE | 2023-04-05 16:29 | HP.PTEVAL_ITS ---
Patient's Visit Information Visit Information Visit Information: REJI GILLESPIE is a 72 year old F referred to Physical Therapy by Dr. Nahum Vasquez MD with a diagnosis of enthesopathies of LLE. Date of Evaluation: 04/05/23 Physical Therapist: Mak Morris DPT Visit Plan Frequency: 2x /Week Duration: 6 Weeks Plan: Start with medial compartment US, HS stretching, OKC strengthening. Progress to pain free CKC exercise as tolerated. Subjective Subjective: Pt. is here today for her initial evaluation with diagnosis of enthesopathies of LLE. Pt. reports having increased L knee pain for a few years now. She reports no mech of injury, but has had progressive L knee pain. Increases symptoms: standing, walking, stairs, squatting. Decreases pain: nothing. She did have an xray showing tri compartmental arthritis. Pt. had tried pain cream without much relief. Pt. does take Tylenol as well. She has fibromyalgia as well. She has been less active due to her L knee pain. She is having issues with sleeping as well. Pt. is hopeful to reduce symptoms to walk better and have a better life. Pain L knee: Pain Intensity (Out of 10): 6 Pain Intensity Range: 4 and 9 Objective Objective: POSTURE: Pt. stands without AD. Pt. has increased wt. shifting to R side. Pt. does have normal L knee positioning. PALPATION: pt. is tender at medial joint line and at pes anserine region as well. She is very tender through this region. Pt. hypersensitive to light touch as well. NEURO: normal throughout BLEs. ROM: L knee: 0-0-128deg. pain at end ranges Pt. has normal HS length, decent L hip ROM. MMT: RLE: ankle 5/5 throughout; knee: ext 5-/5, flexion 5-/5; hip: flexion 4+/5, abd 4/5. ext 4/5. LLE: ankle 5/5 throughout; knee: ext 4/5 increase in symptoms, flexion 4+/5 increase in symptoms; hip: flexion 3+/5 increase NW, abd 3+/5 increase NW. ext 4/5. NE. GAIT: pt. has pretty antalgic pattern with gait. Pt. does not use an AD at this point in time. Pt. has decreased L stance phase, decreased R step length with large trunk lean to off load. I had her walk with can which did improve, but pt. is hesitant to use. Balance/Special Test Scores Lower Extremity Functional Score: 28 Goals Goal 1:: LTG: pt. to be I with HEP. Goal Time Frame: 4-6 Weeks Goal 2:: LTG: pt. to have increased LLE strength to at least 4+/5 throughout. Goal Time Frame: 4-6 Weeks Goal 3:: STG: Pt. to have decreased symptoms at rest to 2-3/10 allowing for increased quality of life. Goal Time Frame: 2-4 Weeks Goal 4:: STG: pt. to ambulate with improved gait pattern with improved tolerance allowing for increased ability to walk in community and in home. Goal Time Frame: 2-4 Weeks Goal 5:: STG: pt. to sleep throughout the night without increase in symptoms. Goal Time Frame: 2-4 Weeks Rehabilitation Potential Physical Therapy Diagnosis: Pt. has signs and symptoms of L knee OA. Pt. has good ROM, but pain at end ranges. Pt. has marked weakness and would benefit from PT to increase LLE strength and modalities to reduce symptoms. Rehabilitation Potential: Fair Anticipated Interventions Patient/Client Instruction: Educate patient on: Condition, Plan of Care, Risk F actors and Benefits of Fitness Program For the Purpose of:: To foster healthy habits, To improve decision making, To facilitate caregiver knowledge, To improve self management, To prevent re-injury and To improve ability to perform tasks related to life management Therapeutic Exercise to Include: Strength training, Power training, Endurance training, Postural training, Flexibilty training and Gait and locomotor training For the Purpose of:: To decrease pain, To increase ROM, To improve nutrient delivery to tissue, To increase oxygenation perfusion, To improve muscle performance and motor function, To improve ability to perform ADL's, To increase tolerance to activity/condition/position, To improve performance and indep endence with ADL's, To decrease level of supervision to perform tasks, To decrease soft tissue restriction and To increase flexibility/ROM Text: Thank you for the opportunity to evaluate your patient. For Medicare and Medicare HMO plans, please review the plan of care and approve it. It will need to be FAXED BACK to us at [phone] for Medicare purposes. For Medicare only, by signing this I certify the plan of care. Please let me know if there are questions or concerns regarding this plan of care. Physician Signature:____ Date:
--- NOTE | 2023-04-26 14:31 | HP.PTREVAL_ITS ---
Re-Evaluation Intro: Dr. Nahum Vasquez MD, It has been my pleasure to treat STEPHENIE GILLESPIE over the last 7 visits for enthesopathies of LLE. Please see the progress note below for an update on the physical therapy plan of care! Subjective Subjective: Pt. reports overall her symptoms are about the same as they were previously. Pt. is still having a lot of pain at the medial joint line of her R knee. Pt. has increased pain with end ranges of L knee pain both flexion /extension. Pt. was scheduled to have an injection consultation this AM, but rescheduled. Pt. reports 7/10 pain pre treatment today. Objective Objective/Function: L knee ROM: AROM 0-0-110deg. Pt. has pain at home flexion and extension end ranges. She has an empty end feel with flexion secondary to pain. MMT: LLE: ankle 5/5 throughout; knee: ext 45 increase NW, flexion 4+/5 increase NW, hip: flexion 4/5 increase NW, abd 4/5 NE. GAIT: Pt. ambulates without AD, but has a marked antalgic pattern during L stance phase of pain. PT. tends to attempt to off load during the end of stance phase secondary to pain. She has increased lateral hip sway with trunk correction. Pt. is unable to negotiate steps with reciprocal pattern secondary to pain. Due the high levels of pain the Stephenie is feeling I am referring her back to her physician for further consultation. Plan Plan Plan: Pt. to return back to physician at this point in time due to not improving with PT. I will leave her case open for a few weeks in case physician would like her to return. If I do not here from her during that span of time I will DC back to physician. Balance/Gait/Functional tests Balance/Special Test Scores Lower Extremity Functional Score: 36 Goals Goals Goal 1:: LTG: pt. to be I with HEP. Goal Time Frame: 4-6 Weeks Goal Progress: Goal Met Goal 2:: LTG: pt. to have increased LLE strength to at least 4+/5 throughout. Goal Time Frame: 4-6 Weeks Goal Progress: Progressing Goal 3:: STG: Pt. to have decreased symptoms at rest to 2-3/10 allowing for increased quality of life. Goal Time Frame: 2-4 Weeks Goal Progress: Not Progressing Goal 4:: STG: pt. to ambulate with improved gait pattern with improved tolerance allowing for increased ability to walk in community and in home. Goal Time Frame: 2-4 Weeks Goal Progress: Not Progressing Goal 5:: STG: pt. to sleep throughout the night without increase in symptoms. Goal Time Frame: 2-4 Weeks Goal Progress: Not Progressing Anticipated Interventions Anticipated Interventions Patient/Client Instruction: Educate patient on: Condition, Plan of Care, Risk Factors and Benefits of Fitness Program For the Purpose of:: To foster healthy habits, To improve decision making, To facilitate caregiver knowledge, To improve self management, To prevent re-injury and To improve ability to perform tasks related to life management Therapeutic Exercise to Include: Strength training, Power training, Endurance training, Postural training, Flexibilty training and Gait and locomotor training For the Purpose of:: To decrease pain, To increase ROM, To improve nutrient delivery to tissue, To increase oxygenation perfusion, To improve muscle performance and motor function, To improve ability to perform ADL's, To increase tolerance to activity/condition/position, To improve performance and independence with ADL's, To decrease level of supervision to perform tasks, To decrease soft tissue restriction and To increase flexibility/ROM Re-Evaluation Ending Re-evaluation ending: Please do not hesitate to contact me at [phone] by phone or if you have questions or concerns regarding this new plan of care! Sincerely, Mak Morris DPT
== END 2023-04-26 19:00 | disposition home or self-care (01) ==
LOC: PT 14:00
PROVIDERS: PCP Family Medicine; Referring Provider Family Medicine; Visit Provider Family Medicine
DX: M76.892 Other specified enthesopathies of left lower limb, excluding foot (principal)
CPT/HCPCS: 97035; 97110; 97161; 97164

== ENCOUNTER → 2023-07-17 | Outpatient (CLI) | payer MEDICARE, SELFPAY ==
[2023-07-17 17:48] LABS: Absolute Lymphocyte Count 2.31 X10^3/uL (0.83-4.51); Absolute Neutrophil Count 6.9 X10^3/uL (2.0-7.7); Basophil# 0.05 X10^3/uL; Basophil% 0.5 % (0-1); Eosinophil# 0.14 X10^3/uL; Eosinophils% 1.3 % (0-5); Hematocrit 42.6 % (37-47); Hemoglobin 13.2 g/dL (12.0-15.0); Lymphocyte # 2.31 X10^3/ul (0.83-4.51); Mean Corpuscular Hgb 30.3 pg (27.0-32.0); Mean Corpuscular Volume 97.9 fL (81-99); Mean Platelet Vol. 10.5 fl (6.2-12.0); Monocyte# 1.06 X10^3/uL; Monocyte% 10.1 % (0-10); NRBC Flagged by Analyzer 0 % (0-5); Neutrophil # 6.87 X10^3/uL (2.7-7.7); Neutrophil % 65.4 % (47-70); Platelet Count 269 K/mm3 (150-450); RBC Distribution Width SD 46.9 fl (35.1-43.9); Red Blood Count 4.35 M/mm3 (4.2-5.4); White Blood Count 10.5 K/mm3 (4.4-11.0)
[2023-07-17 18:25] LABS: Vitamin D,25 Hydroxy 55.5 ng/mL
[2023-07-17 18:41] LABS: ALB/GLOB Ratio 0.9 RATIO (0.9-2.4); AST(SGOT) 19 U/L (15-37); Alanine Aminotransfer ALT/SGPT 27 U/L (13-56); Albumin, Serum 3.4 g/dL (3.2-5.0); Alkaline Phosphatase 43 U/L (45-117); Anion Gap 5 (5-15); BUN 23 mg/dL (7-18); BUN/Creat Ratio 22.1 RATIO (10-20); Chloride 107 mmol/L (98-107); Creatinine, Serum 1.04 mg/dL (0.55-1.02); EST Glomerular Filtration Rate 55 mL/min (>60); Est Glom Filt Rate - Afr Amer 67 mL/min (>60); Globulin 3.8 g/dL (2.2-4.2); Glucose 98 mg/dL (74-106); Potassium 5.2 mmol/L (3.5-5.1); Protein, Total 7.2 g/dL (6.4-8.2); Sodium Level 137 mmol/L (136-145); Thyroid Stim Hormone (TSH) 2.28 uIU/mL (0.358-3.74)
[2023-07-17 18:48] LABS: Microalbumin,Random Urine 36.8 mg/L (NO RANGE EST.); Microalbumin:Creatinine Ratio 19.4 mg/g CRE (<30 mg/g CRE)
== END | disposition home or self-care (01) ==
LOC: MFPLAB 14:50
PROVIDERS: PCP Family Medicine; Visit Provider Family Medicine
DX: E55.9 Vitamin D deficiency, unspecified (principal); M79.7 Fibromyalgia; E03.9 Hypothyroidism, unspecified; I10 Essential (primary) hypertension
CPT/HCPCS: 36415; 80053; 82043; 82306; 82570; 84443; 85025

== ENCOUNTER → 2023-07-18 | Outpatient (CLI) | payer MEDICARE, SELFPAY ==
--- NOTE | 2023-07-18 12:45 | ECHOD_ITS ---
Reason For Study: DCMP Procedure This was a 2D Doppler, Color Flow transthoracic echocardiogram. Exam performed in department. Left Ventricle Normal LV size. Left ventricular systolic function is normal. The estimated ejection fraction is 55 %. Stage 1 diastolic dysfunction. No regional wall motion abnormalities noted. Right Ventricle Normal RV size. ICD or pacer leads identified within the right ventricle. Normal systolic function. Atria Normal left atrium. Normal right atrium. Mitral Valve Normal mitral valve. Tricuspid Valve Normal tricuspid valve. Mild (1+) tricuspid valve insufficiency. Pulmonary artery systolic pressure is 33 mmHg. Aortic Valve Normal aortic valve. Trisinus/trileaflet aortic valve. Pulmonic Valve Normal pulmonic valve. Great Vessels Normal aortic root. The pulmonary artery is normal size. Normal inferior vena cava. Pericardium/Pleural No pericardial effusion. MMode/2D Measurements & Calculations LVIDd: 4.1 cm IVSd: 0.74 cm LAV(MOD-bp): 50.1 ml LVIDs: 3.5 cm LVPWd: 1.2 cm LAV(MOD-bp) Indexed: 30.1 ml/m2 RVDd: 3.4 cm FS: 14.1 % LAV(MOD-sp2): 52.3 ml LAV(MOD-sp4): 43.2 ml SV(MOD-sp4): 49.8 ml SV(sp4-el): 51.3 ml LVAd ap4: 26.2 cm2 LVLd ap4: 7.6 cm EDV(MOD-sp4): 77.0 ml EDV(sp4-el): 77.2 ml LVAs ap4: 14.0 cm2 LVLs ap4: 6.5 cm ESV(MOD-sp4): 27.2 ml ESV(sp4-el): 25.9 ml EF(MOD-sp4): 64.6 % EF(sp4-el): 66.4 % LA A4 area: 17.9 cm2 LA dimension(2D): 3.7 cm RA A4 area: 14.4 cm2 TAPSE: 2.0 cm Time Measurements MV dec time: 0.15 sec Doppler Measurements & Calculations MV E max isiah: 107.4 cm/sec Lat Peak E' Isiah: 7.4 cm/sec Med Peak E' Isiah: 6.9 cm/sec MV A max isiah: 110.8 cm/sec E/E' lat: 14.5 E/E' med: 15.5 MV E/A: 0.97 MV V2 max: 119.8 cm/sec LV V1 max: 99.3 cm/sec MV max P.7 mmHg MV dec slope: 703.9 cm/sec2 LV V1 max P.0 mmHg MV V2 mean: 82.1 cm/sec LV V1 mean P.3 mmHg MV mean P.0 mmHg LV V1 mean: 70.8 cm/sec MV V2 VTI: 34.9 cm LV V1 VTI: 24.6 cm MR max isiah: 456.0 cm/sec PA V2 max: 89.3 cm/sec MR max P.2 mmHg PA V2 mean: 63.1 cm/sec PI dec slope: 173.7 cm/sec2 TR max isiah: 274.1 cm/sec TR max P.1 mmHg ECHO/Echo Complete Interpretation Summary Normal LV size. Left ventricular systolic function is normal. The estimated ejection fraction is 55 %. ICD or pacer leads identified within the right ventricle. Stage 1 diastolic dysfunction. Ordering Physician: Jace Subramanian Referring Physician: Jace Subramanian Performed By: Cuca Talbot RCS
== END | disposition home or self-care (01) ==
LOC: CVS 12:44
PROVIDERS: PCP Family Medicine; Referring Provider Internal Medicine Cardiovascular Disease; Visit Provider Internal Medicine Cardiovascular Disease
DX: I42.8 Other cardiomyopathies (principal)
CPT/HCPCS: 93306

== ENCOUNTER → 2024-01-28 | Outpatient (CLI) | payer MEDICARE, SELFPAY ==
--- NOTE | 2024-01-28 09:46 | BI_ITS ---
MAMMOGRAPHY - BILATERAL SCREENING REASON FOR EXAM: Female, 73 years old. Routine annual screening examination. PERTINENT HISTORY: Non-contributory. History of recent right stereotactic breast biopsy. TECHNIQUE: Digital bilateral breast noé (3D mammographic acquisition) in the CC and MLO projections. 2-D mediolateral oblique (MLO) and craniocaudad (CC) views of both breasts were obtained. CAD: Full Field Digital Mammography with Computer Added Detection was performed. COMPARISON: Comparison is made with prior study dated February 28, 2023 and September 21, 2020. FINDINGS: Breast Composition: The breasts are heterogeneously dense, which may obscure small masses. There are no dominant masses or suspicious calcifications. A tissue clip marker is seen in the upper central portion of the right breast. The previously seen microcalcifications are not seen at this time. A pacemaker battery pack is seen in the left axilla. No other significant abnormalities are identified. BI/SCRN MAMM (CAD)W/NOÉ BILAT IMPRESSION: Stable bilateral screening mammogram. Yearly follow-up mammogram recommended. (A) ASSESSMENT CATEGORY: BIRADS Category 2: Benign. A letter regarding these results will be sent to the patient by the facility within 30 days. Approximately 10% of breast cancers are not detected by mammography. A normal mammogram should not delay biopsy of a clinically suspicious abnormality. [id number] Electronically Signed: Ganesh Dolan MD at 11:14 EDT ,
[2024-01-28 11:03] LABS: Vitamin D,25 Hydroxy 49.5 ng/mL
[2024-01-28 11:21] LABS: ALB/GLOB Ratio 0.9 RATIO (0.9-2.4); AST(SGOT) 22 U/L (15-37); Alanine Aminotransfer ALT/SGPT 23 U/L (13-56); Albumin, Serum 3.4 g/dL (3.2-5.0); Alkaline Phosphatase 42 U/L (45-117); Anion Gap 7 (5-15); BUN 20 mg/dL (7-18); BUN/Creat Ratio 19.2 RATIO (10-20); Calcium,Total 9.7 mg/dL (8.5-10.1); Chloride 107 mmol/L (98-107); Creatinine, Serum 1.04 mg/dL (0.55-1.02); EST Glomerular Filtration Rate 55 mL/min (>60); Est Glom Filt Rate - Afr Amer 67 mL/min (>60); Free T3 2.4 pg/mL (2.18-3.98); Globulin 3.9 g/dL (2.2-4.2); Glucose 102 mg/dL (74-106); Potassium 4.5 mmol/L (3.5-5.1); Protein, Total 7.3 g/dL (6.4-8.2); Sodium Level 138 mmol/L (136-145); T4 Free Direct 1.21 ng/dL (0.76-1.46); Thyroid Stim Hormone (TSH) 1.98 uIU/mL (0.358-3.74)
== END | disposition home or self-care (01) ==
PROVIDERS: Internal Medicine Endocrinology, Diabetes & Metabolism; PCP Family Medicine; Referring Provider Surgery; Visit Provider Surgery
DX: Z12.31 Encounter for screening mammogram for malignant neoplasm of breast (principal); E03.9 Hypothyroidism, unspecified; M81.0 Age-related osteoporosis without current pathological fracture; E55.9 Vitamin D deficiency, unspecified
CPT/HCPCS: 36415; 77063; 77067; 80053; 82306; 84439; 84443; 84481

== ENCOUNTER → 2024-02-22 | Outpatient (CLI) | payer MEDICARE, SELFPAY ==
--- NOTE | 2024-02-22 09:44 | RAD_ITS ---
STUDY: X-RAY - CERVICAL SPINE REASON FOR EXAM: Female, 73 years old. weakness of extremity TECHNIQUE: 5 view(s) of the cervical spine were obtained. COMPARISON: August 10, 2009 cervical spine FINDINGS: Normal anterior atlantoaxial articulation. Normal odontoid process. Slight anterior offset C4-5. This appears unchanged. Increased Disc space narrowing C5-6. Normal cervical lordosis. Normal vertebral bodies and endplates. Normal disc space heights. Normal visualized intervertebral neuroforamina. The soft tissue structures are unremarkable. RAD/Cerv Spine 4 or 5 Views IMPRESSION: Increased degenerative disc disease as above. Electronically Signed: Ramirez Molina MD at 17:02 EDT ,
[2024-02-22 12:24] LABS: Erythrocyte Sedimentation Rate 6 mm/hr (0-30)
[2024-02-22 12:47] LABS: Vitamin B12 626 pg/mL (211-911)
[2024-02-22 12:52] LABS: PTHIN 117.7 pg/mL (18.4-80.1)
[2024-02-22 14:04] LABS: CRP < 2.90 mg/L (0.0-3.0); Folates, (Folic Acid) > 100.00 ng/mL (3.1-55.4)
[2024-02-25 14:08] LABS: Lyme Scn Total Ab w/Rflx Negative (Negative); PROEL- A/G Ratio 1.2 (0.7-1.7); PROEL- Albumin 3.8 g/dL (2.9-4.4); PROEL- Alpha-1 Globulin 0.3 g/dL (0.0-0.4); PROEL- Alpha-2 Globulin 0.9 g/dL (0.4-1.0); PROEL- Beta Globulin 1.2 g/dL (0.7-1.3); PROEL- Globulin, Total 3.3 g/dL (2.2-3.9); PROEL- TOTAL PROTEIN 7.1 g/dL (6.0-8.5); PROEL-M-Spike Not Observed g/dL (Not Observed)
[2024-02-26 08:11] LABS: Anti-Nuclear Antibody Test Negative (.)
== END | disposition home or self-care (01) ==
LOC: MTLAB 09:37
PROVIDERS: PCP Family Medicine; Referring Provider Family Medicine; Visit Provider Family Medicine
DX: N18.31 Chronic kidney disease, stage 3a (principal); R29.898 Other symptoms and signs involving the musculoskeletal system
CPT/HCPCS: 36415; 72050; 82607; 82746; 83970; 84165; 85652; 86038; 86140; 86618

== ENCOUNTER → 2024-03-04 | Outpatient (CLI) | payer MEDICARE, SELFPAY ==
[2024-03-04 16:36] LABS: PTHIN 61.3 pg/mL (18.4-80.1)
[2024-03-04 16:41] LABS: Vitamin D,25 Hydroxy 35.7 ng/mL
[2024-03-04 16:42] LABS: Urine Calcium (Random) 7.2 (Not Estab.)
[2024-03-04 16:50] LABS: ALB/GLOB Ratio 0.9 RATIO (0.9-2.4); AST(SGOT) 19 U/L (15-37); Alanine Aminotransfer ALT/SGPT 19 U/L (13-56); Albumin, Serum 3.4 g/dL (3.2-5.0); Alkaline Phosphatase 42 U/L (45-117); Anion Gap 5 (5-15); BUN 23 mg/dL (7-18); BUN/Creat Ratio 19.2 RATIO (10-20); Calcium,Total 9.3 mg/dL (8.5-10.1); Chloride 106 mmol/L (98-107); EST Glomerular Filtration Rate 47 mL/min (>60); Est Glom Filt Rate - Afr Amer 57 mL/min (>60); Globulin 3.6 g/dL (2.2-4.2); Glucose 105 mg/dL (74-106); Phosphorus 3.6 mg/dL (2.5-4.9); Potassium 4.2 mmol/L (3.5-5.1); Sodium Level 138 mmol/L (136-145)
[2024-03-10 13:08] LABS: Vitamin D 1,25-Dihydroxy 30.6 pg/mL (24.8-81.5)
== END | disposition home or self-care (01) ==
LOC: LAB 15:45
PROVIDERS: PCP Family Medicine; Referring Provider Internal Medicine Endocrinology, Diabetes & Metabolism; Visit Provider Internal Medicine Endocrinology, Diabetes & Metabolism
DX: R73.9 Hyperglycemia, unspecified (principal); E55.9 Vitamin D deficiency, unspecified; M81.0 Age-related osteoporosis without current pathological fracture; E03.9 Hypothyroidism, unspecified
CPT/HCPCS: 36415; 80053; 82306; 82570; 82652; 83970; 84100

== ENCOUNTER → 2024-03-05 | Outpatient (CLI) | payer MEDICARE, SELFPAY ==
[2024-03-05 12:25] LABS: Ionized Calcium 4.97 mg/dL (4.36-5.20)
[2024-03-05 19:20] LABS: Ionized Calcium Order ORDER TUBE
== END | disposition home or self-care (01) ==
LOC: LAB.FUTURE 09:32
PROVIDERS: PCP Family Medicine; Visit Provider Internal Medicine Endocrinology, Diabetes & Metabolism
DX: R73.9 Hyperglycemia, unspecified (principal); E55.9 Vitamin D deficiency, unspecified; M81.0 Age-related osteoporosis without current pathological fracture; E03.9 Hypothyroidism, unspecified
CPT/HCPCS: 82330

== ENCOUNTER → 2024-07-10 | Outpatient (CLI) | payer MEDICARE, SELFPAY ==
[2024-07-10 09:45] LABS: Absolute Lymphocyte Count 1.62 X10^3/uL (0.83-4.51); Absolute Neutrophil Count 3.7 X10^3/uL (2.0-7.7); Basophil# 0.03 X10^3/uL; Basophil% 0.5 % (0-1); Eosinophil# 0.19 X10^3/uL; Eosinophils% 3.1 % (0-5); Hematocrit 41.9 % (37-47); Hemoglobin 13.8 g/dL (12.0-15.0); Lymphocyte # 1.62 X10^3/ul (0.83-4.51); Lymphocyte % 26.4 % (19-41); Mean Corp Hgb Conc 32.9 g/dL (32-36); Mean Corpuscular Hgb 30.8 pg (27.0-32.0); Mean Corpuscular Volume 93.5 fL (81-99); Mean Platelet Vol. 9.4 fl (6.2-12.0); Monocyte# 0.61 X10^3/uL; NRBC Flagged by Analyzer 0 % (0-5); Neutrophil # 3.65 X10^3/uL (2.7-7.7); Neutrophil % 59.5 % (47-70); Platelet Count 269 K/mm3 (150-450); RBC Distribution Width CV 14.3 % (11.6-14.6); RBC Distribution Width SD 49.4 fl (35.1-43.9); Red Blood Count 4.48 M/mm3 (4.2-5.4); White Blood Count 6.1 K/mm3 (4.4-11.0)
[2024-07-10 10:21] LABS: ALB/GLOB Ratio 0.9 RATIO (0.9-2.4); AST(SGOT) 24 U/L (15-37); Alanine Aminotransfer ALT/SGPT 24 U/L (13-56); Albumin, Serum 3.4 g/dL (3.2-5.0); Alkaline Phosphatase 42 U/L (45-117); Anion Gap 4 (5-15); BUN 17 mg/dL (7-18); BUN/Creat Ratio 15.5 RATIO (10-20); Calcium,Total 9.3 mg/dL (8.5-10.1); Chloride 106 mmol/L (98-107); Cholesterol 205 mg/dL (200); EST Glomerular Filtration Rate 52 mL/min (>60); Est Glom Filt Rate - Afr Amer 63 mL/min (>60); Globulin 3.8 g/dL (2.2-4.2); Glucose 106 mg/dL (74-106); High Density Lipoprotein 77 mg/dL; Potassium 4.6 mmol/L (3.5-5.1); Protein, Total 7.2 g/dL (6.4-8.2); Sodium Level 138 mmol/L (136-145); Triglycerides 132 mg/dL; Very Low Density Lipoprotein 26 mg/dL (5-40)
[2024-07-10 10:27] LABS: Microalbumin,Random Urine 9.3 mg/L (NO RANGE EST.)
== END | disposition home or self-care (01) ==
LOC: LAB 09:16
PROVIDERS: PCP Family Medicine; Referring Provider Family Medicine; Visit Provider Family Medicine
DX: I42.9 Cardiomyopathy, unspecified (principal)
CPT/HCPCS: 36415; 80053; 80061; 82043; 82570; 84443; 85025

== ENCOUNTER → 2025-02-04 | Outpatient (CLI) | payer MEDICARE, SELFPAY ==
[2025-02-04 11:02] LABS: Hemoglobin A1c 5.7 % (<=5.6)
[2025-02-04 11:05] LABS: Microalbumin,Random Urine < 12.0 mg/L (NO RANGE EST.); Microalbumin:Creatinine Ratio UNABLE TO CALCULATE mg/g CRE
[2025-02-04 13:00] LABS: PTHIN 40 pg/mL (11-61)
[2025-02-04 13:18] LABS: ALB/GLOB Ratio 1.3 RATIO (0.9-2.4); AST(SGOT) 23 U/L (<=31); Alanine Aminotransfer ALT/SGPT 12 U/L (<=34); Albumin, Serum 4.1 g/dL (3.4-4.8); Alkaline Phosphatase 43 U/L (35-104); Anion Gap 11 (5-15); BUN 23 mg/dL (4-19); BUN/Creat Ratio 21.6 RATIO (10-20); Calcium,Total 9.6 mg/dL (7.6-11.0); Carbon Dioxide 25.2 mmol/L (21.0-32.0); Chloride 102 mmol/L (98-108); Cholesterol 214 mg/dL (<=200); Creatinine, Serum 1.05 mg/dL (0.70-1.20); EST Glomerular Filtration Rate 56 (>60); Free T3 2.6 pg/mL (2.18-3.98); Globulin 3.2 g/dL (2.2-4.2); Glucose 99 mg/dL (70-99); High Density Lipoprotein 70 mg/dL; Low Density Lipoprotein Calc. 123 mg/dL; Potassium 5.1 mmol/L (3.3-5.1); Protein, Total 7.3 g/dL (5.9-8.4); Sodium Level 138 mmol/L (133-145); Total Bilirubin 0.34 mg/dL (0.00-1.30); Triglycerides 103 mg/dL; Very Low Density Lipoprotein 21 mg/dL (5-40); cholesterol:hdl ratio screen 3.04
== END | disposition home or self-care (01) ==
LOC: MTLAB 09:13
PROVIDERS: PCP Family Medicine; Referring Provider Family Medicine; Visit Provider Family Medicine
DX: E03.9 Hypothyroidism, unspecified (principal); N18.31 Chronic kidney disease, stage 3a; M81.0 Age-related osteoporosis without current pathological fracture; E55.9 Vitamin D deficiency, unspecified; Z13.1 Encounter for screening for diabetes mellitus; E78.00 Pure hypercholesterolemia, unspecified; M79.7 Fibromyalgia; R79.89 Other specified abnormal findings of blood chemistry; I12.9 Hypertensive chronic kidney disease with stage 1 through stage 4 chronic kidney disease, or unspecified chronic kidney disease
CPT/HCPCS: 36415; 80053; 80061; 82043; 82306; 82570; 83036; 83970; 84439; 84443; 84481

== ENCOUNTER → 2025-02-09 | Outpatient (CLI) | payer MEDICARE, SELFPAY ==
--- NOTE | 2025-02-09 13:21 | BI_ITS ---
EXAM: SCRN MAMM (CAD)W/NOÉ BILAT DATE: 02/09/2025 CLINICAL HISTORY: F, Age 74 y/o , SCREENING FOR BREAST CANCER BREAST CANCER RISK ASSESSMENT: Has not been created TECHNIQUE: Bilateral screening digital breast tomosynthesis with 2D and 3D images. Computer aided detection. COMPARISON: Prior exam(s) dated dated 02/07/2024 and 02/28/2023. FINDINGS: TISSUE DENSITY: The breast tissue is heterogenously dense, which may obscure small masses. Bilateral Breast Mammographic Findings: No suspicious masses, suspicious cluster of microcalcifications architectural distortion or secondary signs of malignancy identified in either breast. Benign-appearing macro calcifications and round microcalcifications are seen in both breasts. A cardiac pacemaker device identified in the left pectoral region which does obscure small amount of breast tissues location. BI/SCRN MAMM (CAD)W/NOÉ BILAT IMPRESSION: OVERALL FINAL ASSESSMENT: BIRADS 2 BENIGN FINDING RECOMMENDATION: Routine annual follow-up in 1 Year A letter with findings and recommendations will be mailed to the patient. Reading Location: [id number]
== END | disposition home or self-care (01) ==
LOC: OPBI 13:20
PROVIDERS: PCP Family Medicine; Referring Provider Family Medicine; Visit Provider Family Medicine
DX: Z12.31 Encounter for screening mammogram for malignant neoplasm of breast (principal)
CPT/HCPCS: 77063; 77067

== ENCOUNTER → 2025-02-13 | Outpatient (CLI) | payer MEDICARE, SELFPAY | END | disposition home or self-care (01) | LOC: PSN 06:42 | PROVIDERS: PCP Family Medicine; Referring Provider Family Medicine; Visit Provider Family Medicine | DX: R06.02 Shortness of breath (principal) | CPT/HCPCS: 94060; 94726; 94729 ==

== ENCOUNTER → 2025-03-03 | Outpatient (CLI) | payer MEDICARE, SELFPAY ==
--- NOTE | 2025-03-03 14:26 | BD_ITS ---
PROCEDURE: DEXA BONE DENSITY STUDY 03/03/2025 REASON FOR EXAM: F, age 74 y/o . Postmenopausal. TECHNIQUE: DXA scan of sites with data reported below. RE[facility]ENCE LINKS: [facility] Adult Position[facility] COMPARISON: Prior study dated February 22, 2023. FINDINGS: BMD and T-SCORES Lumbar spine: 0.876 g/cm2, T-score -1.6 Levels: L1 through L4 Change from prior: Loss of 1.5%. Left femoral neck: 0.713 g/cm2, T-score -1.2 Femoral neck comparison data not recommended for monitoring change. Left total hip: 0.817 g/cm2, T-score -1.0 Change from prior: Loss of 3.8%. Right femoral neck: 0.695 g/cm2, T-score -1.4 Femoral neck comparison data not recommended for monitoring change. Right total hip: 0.778 g/cm2, T-score -1.3 Change from prior: Loss of 3.2%. The World Health Organization has defined the following categories based on bone density: Normal bone density: T-score equal to or greater than -1.0 Osteopenia: T-score between -1.0 and -2.5 Osteoporosis: T-score equal to or less than -2.5 The patient does meet the pharmacological treatment recommendations for prevention of osteoporosis. BD/Dexa Bone Density Study IMPRESSION: OSTEOPENIA. Recommend follow-up as clinically warranted. Reading Location: [place] [id number]
== END | disposition home or self-care (01) ==
LOC: OPBD 14:20
PROVIDERS: PCP Family Medicine; Referring Provider Internal Medicine Endocrinology, Diabetes & Metabolism; Visit Provider Internal Medicine Endocrinology, Diabetes & Metabolism
DX: M81.0 Age-related osteoporosis without current pathological fracture (principal)
CPT/HCPCS: 77080

== ENCOUNTER → 2025-04-08 | Outpatient (CLI) | payer MEDICARE, SELFPAY ==
--- NOTE | 2025-04-08 12:52 | ECHOD_ITS ---
Reason For Study Reason For Study: PHTN Procedure This was a 2D Doppler, Color Flow transthoracic echocardiogram. Exam performed in department. Left Ventricle Normal size and thickness. The LV ejection fraction is 55 %. Normal diastology for age. Right Ventricle Normal right ventricle. ICD or pacer leads identified within the right ventricle. Atria The left and right atria are normal. ICD or pacer leads identified within the right atrium. Mitral Valve Mild mitral annular calcification. Mild (1+) mitral valve insufficiency. Tricuspid Valve Mild tricuspid valve insufficiency. Normal pulmonary artery pressure. Aortic Valve Trisinus/trileaflet aortic valve. Pulmonic Valve The pulmonic valve is not well visualized. Trivial pulmonic valve insufficiency. Great Vessels Normal sized aortic root. Pericardium/Pleural No pericardial effusion. MMode/2D Measurements & Calculations LVIDd: 4.0 cm IVSd: 0.88 cm Ao root diam: 2.8 cm LVIDs: 2.8 cm LVPWd: 0.84 cm RVDd: 3.4 cm FS: 29.0 % LAV(MOD-bp): 40.2 ml LVAd ap4: 22.3 cm2 LVAd ap2: 23.9 cm2 LAV(MOD-bp) Indexed: 24.9 ml/m2 LVLd ap4: 7.2 cm LVLd ap2: 7.1 cm LAV(MOD-sp2): 38.9 ml EDV(MOD-sp4): 58.2 ml EDV(MOD-sp2): 67.3 ml LAV(MOD-sp4): 38.6 ml EDV(sp4-el): 58.7 ml EDV(sp2-el): 68.5 ml LVAs ap4: 13.4 cm2 LVAs ap2: 13.3 cm2 LVLs ap4: 6.2 cm LVLs ap2: 5.7 cm ESV(MOD-sp4): 24.3 ml ESV(MOD-sp2): 27.8 ml ESV(sp4-el): 24.7 ml ESV(sp2-el): 26.5 ml EF(MOD-sp4): 58.3 % EF(MOD-sp2): 58.6 % EF(sp4-el): 58.0 % SV(MOD-sp4): 33.9 ml SV(MOD-sp2): 39.4 ml SV(sp4-el): 34.1 ml SI(MOD-sp4): 21.0 ml/m2 SI(MOD-sp2): 24.5 ml/m2 LA A4 area: 14.1 cm2 LA dimension(2D): 3.5 cm RA A4 area: 9.6 cm2 TAPSE: 1.8 cm Time Measurements MV dec time: 0.16 sec Doppler Measurements & Calculations MV E max isiah: 74.1 cm/sec Lat Peak E' Isiah: 6.8 cm/sec Med Peak E' Isiah: 7.4 cm/sec MV A max isiah: 85.2 cm/sec E/E' lat: 10.9 E/E' med: 10.0 MV E/A: 0.87 MV V2 max: 119.3 cm/sec MV P1/2t max isiah: 92.9 cm/sec Ao V2 max: 108.3 cm/sec MV max P.7 mmHg MV P1/2t: 58.6 msec Ao max P.7 mmHg MV V2 mean: 61.8 cm/sec Ao V2 mean: 82.6 cm/sec MV mean P.8 mmHg MV dec slope: 464.4 cm/sec2 Ao mean P.9 mmHg MV V2 VTI: 26.4 cm MVA(P1/2t): 3.8 cm2 Ao V2 VTI: 24.4 cm AV (velocity ratio): 0.84 LV V1 max: 91.9 cm/sec PA V2 max: 66.7 cm/sec TR max isiah: 266.7 cm/sec LV V1 max P.4 mmHg PA V2 mean: 50.5 cm/sec TR max P.5 mmHg LV V1 mean P.9 mmHg LV V1 mean: 66.5 cm/sec LV V1 VTI: 20.6 cm ECHO/Echo Complete Interpretation Summary The LV ejection fraction is 55 %. Mild mitral annular calcification. Mild (1+) mitral valve insufficiency. Mild tricuspid valve insufficiency. Ordering Physician: Michele Palma Referring Physician: Michele Palma Performed By: Neyda Cervantes RDCS, RVT
== END | disposition home or self-care (01) ==
PROVIDERS: PCP Family Medicine; Referring Provider Family Medicine; Visit Provider Family Medicine
DX: I27.20 Pulmonary hypertension, unspecified (principal)
CPT/HCPCS: 93306

== ENCOUNTER → 2025-04-24 | Outpatient (CLI) | payer MEDICARE, SELFPAY ==
--- NOTE | 2025-04-24 16:30 | RAD_ITS ---
EXAM: XR Chest, 2 Views CLINICAL INDICATION: COUGH TECHNIQUE: Frontal and lateral views of the chest. COMPARISON: No relevant prior studies available. FINDINGS: LUNGS AND PLEURAL SPACES: Unremarkable. No consolidation. No pneumothorax. HEART: Unremarkable. No cardiomegaly. MEDIASTINUM: Unremarkable. Normal mediastinal contour. BONES/JOINTS: Unremarkable. No acute fracture. TUBES, LINES AND DEVICES: Left-sided cardiac pacemaker. RAD/Chest PA and Lateral IMPRESSION: No acute cardiopulmonary process. Reading Location: [id number]
== END | disposition home or self-care (01) ==
LOC: MTRAD 16:29
PROVIDERS: PCP Family Medicine; Referring Provider Family Medicine; Visit Provider Family Medicine
DX: J45.909 Unspecified asthma, uncomplicated (principal)
CPT/HCPCS: 71046